=== PATIENT | female | born 1980 | race Caucasian/White ===

== ENCOUNTER 2016-10-10 11:06 | Emergency (ER) | payer OTHER ==
[~2016-10-10] VITALS: Ht 162.6 cm; Wt 81.9 kg
[~2016-10-10 11:06] MED LIST: AZIT500T PO; BUTA-234; BUTA-234 PO; CIPR-17 PO; ERYTHROMYCIN; GABA300C PO; HYDR-3583 PO; HYDR1CAP2 PO; LANS15CA PO; PRCD5U PO; PRD20T PO; PRM25T PO; SULF1TAB38 PO; TRM50T PO; VARE1TAB17; VNL75T PO
[2016-10-10] MEDS ORDERED: NS IV 1000 ML 1,000 ML IV SCH (11:45)
[2016-10-10] MEDS ORDERED: LORazepam INJ 2 MG/ML (ATIVAN) VIAL IVP ONE (11:45)
[2016-10-10 11:46] LABS: BASOPHILS % (AUTO) 0 % (0-10); EOSINOPHILS # (AUTO) 0.2 10^3/uL (0.0-0.3); EOSINOPHILS % (AUTO) 2 % (0-10); LYMPHOCYTES # (AUTO) 3.9 X 10^3 (1.0-4.0); LYMPHOCYTES % (AUTO) 32 % (12-44); MEAN CORPUSCULAR HEMOGLOBIN 31 PG (25-34); MEAN CORPUSCULAR HGB CONC 34 G/DL (32-36); MEAN CORPUSCULAR VOLUME 89 FL (80-99); MEAN PLATELET VOLUME 9.5 FL (7.4-10.4); MONOCYTES # (AUTO) 0.8 X 10^3 (0.0-1.0); MONOCYTES % (AUTO) 6 % (0-12); NEUTROPHILS # (AUTO) 7.3 X 10^3 (1.8-7.8); NEUTROPHILS % (AUTO) 60 % (42-75); PLATELET COUNT 197 10^3/uL (130-400); RED BLOOD COUNT 4.85 10^6/uL (4.35-5.85); RED CELL DISTRIBUTION WIDTH 12.7 % (10.0-14.5); WHITE BLOOD COUNT 12.2 10^3/uL (4.3-11.0)
--- NOTE | 2016-10-10 11:55 | ED Chest Pain ---
General Chief Complaint: Cardiac/General Problems Stated Complaint: CHEST PAIN/SOA Nursing Triage Note: patient reports palpitations x 1 week Nursing Sepsis Screen: No Definite Risk Source: patient Exam Limitations: no limitations History of Present Illness Time seen by provider: 11:53 Initial Comments To ER with shortness of breath, intermittent chest pain, heart palpitations/ skipping a beat for the past week. She's been told past that she has mitral valve prolapse. She also feels very anxious. Timing/Duration: 1 week Severity/Quality: moderate Location: central Radiation: no radiation Activities at Onset: none ASA po MANAGER DATABASE: No NTG SL MANAGER DATABASE: No Allergies and Home Medications Allergies Coded Allergies: hydromorphone (Unverified Allergy, Unknown, 10/10/16) Home Medications Butalb/Acetaminophen/Caffeine 1 Each Tablet, 1 EACH PO Q6HR PRN, (Reported) Gabapentin 300 Mg Capsule, 1 EACH PO TID, (Reported) Lansoprazole 15 Mg Capsule.dr, 15 MG PO PRN, (Reported) Metoprolol Succinate 25 Mg Tab.er.24h, 25 MG PO DAILY, #10 Prescribed by: ALVINA PICKENS on 10/10/16 1324 Promethazine Hcl 25 Mg Tab, 1 TAB PO QID PRN for NAUSEA/VOMITING, #20 Prescribed by: JENNIFER MACKENZIE on 06/16/13 1630 Venlafaxine Hcl 75 Mg Tab, 75 MG PO HS, (Reported) Review of Systems Constitutional: see HPI EENTM: No Symptoms Reported Respiratory: See HPI, Shortness of Air Cardiovascular: See HPI, Chest Pain Genitourinary: No Symptoms Reported Musculoskeletal: no symptoms reported Skin: no symptoms reported Psychiatric/Neurological: See HPI, Anxiety Endocrine: No Symptoms Reported Hematologic/Lymphatic: No Symptoms Reported Past Akjbwfh-Ccsejs-Wdhohj Hx Patient Social History Alcohol Use: Denies Use Recreational Drug Use: No Recent Foreign Travel: No Contact w/Someone Who Travel: No Recent Infectious Disease Expo: No Recent Hopitalizations: No Immunizations Up To Date Tetanus Booster (TDap): Less than 5yrs Date of Influenza Vaccine: Apr 17, 2013 Surgeries HX Surgeries: Yes Surgeries: Abdominal, Appendectomy, Section, Hysterectomy Respiratory Hx Respiratory Disorders: Yes (tobaccoism) Respiratory Disorders: Pneumonia Cardiovascular Hx Cardiac Disorders: Yes (MITRAL VALVE PROLAPSE) Cardiac Disorders: Heart Murmur Neurological Hx Neurological Disorders: Yes Neurological Disorders: Headaches /Migraines Reproductive System Hx Reproductive Disorders: No Sexually Transmitted Disease: No Female Reproductive Disorders: Endometriosis 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 Genitourinary Hx Genitourinary Disorders: No Gastrointestinal Hx Gastrointestinal Disorders: Yes Gastrointestinal Disorders: Gastroesophageal Reflux Musculoskeletal Hx Musculoskeletal Disorders: Yes (CHRONIC "MUSCLE PAIN" X 10 YEARS, MYOFACIAL PAIN) Musculoskeletal Disorders: Fibromyalgia Endocrine Hx Endocrine Disorders: No HEENT HX ENT Disorders: No Cancer Hx Cancer: No Psychosocial Hx Psychiatric Problems: Yes Behavioral Health Disorders: Depression Integumentary HX Skin/Integumentary Disorder: No Blood Transfusions Hx Blood Disorders: No Adverse Reaction to a Blood Tr: No Family Medical History Significant Family History: Heart Disease, Diabetes, Hypertension Physical Exam Vital Signs Vital Sign - Last 12Hours 10/10/16 11:21 Temp 98.2 Pulse 91 Resp 30 B/P (MAP) 140/57 Pulse Ox 100 Capillary Refill : Less Than 3 Seconds General Appearance: No Apparent Distress, WD/WN, Anxious HEENT: PERRL/EOMI, TMs Normal Neck: Full Range of Motion, Normal Inspection Respiratory: Lungs Clear, Normal Breath Sounds, No Accessory Muscle Use, No Respiratory Distress Cardiovascular: Regular Rate, Rhythm, Normal Peripheral Pulses Gastrointestinal: Non Tender, Soft Extremity: Normal Capillary Refill, Normal Inspection Neurologic/Psychiatric: Alert, Oriented x3 Skin: Normal Color, Warm/Dry Progress/Results/Core Measures Results/Orders Lab Results Laboratory Tests Test 10/10/16 11:35 10/10/16 11:47 Range/Units White Blood Count 12.2 H 4.3-11.0 10^3/uL Red Blood Count 4.85 4.35-5.85 10^6/uL Hemoglobin 14.8 11.5-16.0 G/DL Hematocrit 43 35-52 % Mean Corpuscular Volume 89 80-99 FL Mean Corpuscular Hemoglobin 31 25-34 PG Mean Corpuscular Hemoglobin Concent 34 32-36 G/DL Red Cell Distribution Width 12.7 10.0-14.5 % Platelet Count 197 130-400 10^3/uL Mean Platelet Volume 9.5 7.4-10.4 FL Neutrophils (%) (Auto) 60 42-75 % Lymphocytes (%) (Auto) 32 12-44 % Monocytes (%) (Auto) 6 0-12 % Eosinophils (%) (Auto) 2 0-10 % Basophils (%) (Auto) 0 0-10 % Neutrophils # (Auto) 7.3 1.8-7.8 X 10^3 Lymphocytes # (Auto) 3.9 1.0-4.0 X 10^3 Monocytes # (Auto) 0.8 0.0-1.0 X 10^3 Eosinophils # (Auto) 0.2 0.0-0.3 10^3/uL Basophils # (Auto) 0.0 0.0-0.1 10^3/uL D-Dimer 0.57 H 0.00-0.49 UG/ML Sodium Level 139 135-145 MMOL/L Potassium Level 3.8 3.6-5.0 MMOL/L Chloride Level 106 98-107 MMOL/L Carbon Dioxide Level 25 21-32 MMOL/L Anion Gap 8 5-14 MMOL/L Blood Urea Nitrogen 16 7-18 MG/DL Creatinine 1.10 0.60-1.30 MG/DL Estimat Glomerular Filtration Rate 57 BUN/Creatinine Ratio 15 Glucose Level 90 70-105 MG/DL Calcium Level 9.2 8.5-10.1 MG/DL Total Bilirubin 0.3 0.1-1.0 MG/DL Aspartate Amino Transf (AST/SGOT) 38 H 5-34 U/L Alanine Aminotransferase (ALT/SGPT) 69 H 0-55 U/L Alkaline Phosphatase 77 40-136 U/L Troponin I < 0.30 <0.30 NG/ML Total Protein 6.4 6.4-8.2 G/DL Albumin 3.9 3.2-4.5 G/DL Urine Color YELLOW Urine Clarity CLEAR Urine pH 6 5-9 Urine Specific [place] 1.020 1.016-1.022 Urine Protein NEGATIVE NEGATIVE Urine Glucose (UA) NEGATIVE NEGATIVE Urine Ketones NEGATIVE NEGATIVE Urine Nitrite NEGATIVE NEGATIVE Urine Bilirubin NEGATIVE NEGATIVE Urine Urobilinogen NORMAL NORMAL MG/DL Urine Leukocyte Esterase NEGATIVE NEGATIVE Urine RBC (Auto) NEGATIVE NEGATIVE Urine RBC NONE /HPF Urine WBC NONE /HPF Urine Squamous Epithelial Cells 5-10 /HPF Urine Crystals NONE /LPF Urine Bacteria NEGATIVE /HPF Urine Casts NONE /LPF Urine Mucus NEGATIVE /LPF Urine Culture Indicated NO My Orders Orders - ALVINA PICKENS AP OPERATOR Cbc With Automated Diff (10/10/16 11:31) Comprehensive Metabolic Panel (10/10/16 11:31) Ua Culture If Indicated (10/10/16 11:31) Fibrin Degradation Products (10/10/16 11:31) Saline Lock/Iv-Start (10/10/16 11:31) Chest 1 View, Ap/Pa Only (10/10/16 11:31) Ekg Tracing (10/10/16 11:31) Lorazepam Injection (Ativan Injection) (10/10/16 11:45) Ns Iv 1000 Ml (Sodium Chloride 0.9%) (10/10/16 11:45) Ct Angio Chest W (10/10/16 12:00) Iohexol Injection (Omnipaque 350 Mg/Ml 1 (10/10/16 12:15) Sodium Chloride Flush (Catheter Flush Sy (10/10/16 12:15) Ns (Ivpb) (Sodium Chloride 0.9% Ivpb Bag (10/10/16 12:15) Metoprolol Tartrate (Ir) Tab (Lopressor (10/10/16 12:15) Ketorolac Injection (Toradol Injection) (10/10/16 13:15) Troponin I (10/10/16 13:03) Medications Given in ED Current Medications Medications Dose Ordered Sig/Yadira Route Start Time Stop Time Status Last Admin Dose Admin Iohexol 150 ml ONCE ONCE IV 10/10/16 12:15 10/10/16 12:16 DC 10/10/16 12:19 125 ML Ketorolac Tromethamine 30 mg ONCE ONCE IVP 10/10/16 13:15 10/10/16 13:16 DC 10/10/16 13:05 30 MG Lorazepam 1 mg ONCE ONCE IVP 10/10/16 11:45 10/10/16 11:46 DC 10/10/16 11:46 1 MG Sodium Chloride 100 ml ONCE ONCE IV 10/10/16 12:15 10/10/16 12:16 DC 10/10/16 12:19 80 ML Vital Signs/I&O Vital Sign - Last 12Hours 10/10/16 11:21 Temp 98.2 Pulse 91 Resp 30 B/P (MAP) 140/57 Pulse Ox 100 Blood Pressure Mean: 84 Diagnostic Imaging Diagonstic Imaging: CT Plain Films/CT/US/NM/MRI: chest Comments NAME: SUZETTE MANLEY MED REC#: [id number] PT STATUS: REG ER : 1980 PHYSICIAN: ALVINA PICKENS APRN ADMIT DATE: 10/10/16/ER Draft Date of Exam:10/10/16 CT ANGIO CHEST W CLINICAL INDICATION: Patient with shortness of breath and chest palpitations and chest discomfort. EXAM: CT angiogram of the chest performed with 125 cc Omnipaque 350 IV contrast. Coronal and oblique MIP images of the vasculature were created to better evaluate anatomy. COMPARISON: Chest x-ray dated 10/10/2016. FINDINGS: There is no evidence of pulmonary embolism. There is no thoracic aortic dissection or aneurysm. There is a 4 mm noncalcified nodule in the posterior left lower lobe seen on series 4, image 105. There is another 3 mm noncalcified nodule in the posterior left lower lobe which is just caudal to the previously described nodule. Otherwise, lungs clear. There is no pleural effusion pneumothorax. There is no mediastinal or axillary lymphadenopathy. Mediastinal structures and heart shows no significant abnormality. The visualized portions of the upper abdominal structures are unremarkable. There are minimal sized spurs involving the thoracic spine. IMPRESSION: 1: There is no evidence of pulmonary embolism or thoracic aortic dissection. 2: There are 2 noncalcified nodules in the left lower lobe near each other with one measuring 4 mm and the other measuring 3 mm. In patients with minimal or absent history of smoking or other known risk factors, non-calcified nodules less than or equal to 4mm in diameter need no follow up. If risk factors exist, a follow up CT is recommended in 12 months. If unchanged at that time, no further follow up is needed. 3: The remainder of the chest exam is unremarkable for patient's age. Dictated on workstation # [id number] Dict: 10/10/16 1239 Trans: 10/10/16 1251 [id number] Interpreted by: PASTORA VARGAS MD Electronically signed by: Departure Communication Progress Notes Patient has had a few PVCs during her ER stay. Impression Impression: Primary Impression: Atypical chest pain Additional Impression: Anxiety Disposition: 01 HOME, SELF-CARE Condition: Stable (Cor out of warm) Departure-Patient Inst. Decision time for Depature: 13:21 Referrals: JAZ BRITO MD FACP FACC CCDS Joshua VILLASENOR MD, BASHAR J MD ORENDER, JACQUELINE S DO (PCP/Family) Primary Care Physician Patient Instructions: Chest Pain (DC) Add. Discharge Instructions: . Call one of the cardiologists of your choosing today to make an appointment to be seen later this week 2. Return to ER for any concerns 3. All discharge instructions reviewed with patient and/or family. Voiced understanding. Scripts Metoprolol Succinate (Toprol Xl) 25 Mg Tab.er.24h 25 MG PO DAILY, #10 TAB . Prov: ALVINA PICKENS APRN 10/10/16 ALVINA PICKENS APRN Oct 10, 2016 11:55
[2016-10-10 11:57] LABS: BILIRUBIN,URINE NEGATIVE (NEGATIVE); KETONES,URINE NEGATIVE (NEGATIVE); LEUKOCYTE ESTERASE ,URINE NEGATIVE (NEGATIVE); NITRITE,URINE NEGATIVE (NEGATIVE); PH,URINE 6 (5-9); PROTEIN,URINE NEGATIVE (NEGATIVE); UROBILINOGEN,URINE NORMAL (NORMAL)
[2016-10-10 12:11] LABS: ALBUMIN 3.9 G/DL (3.2-4.5); BILIRUBIN,TOTAL 0.3 MG/DL (0.1-1.0); CALCIUM 9.2 MG/DL (8.5-10.1); CREATININE SERUM 1.1 MG/DL (0.60-1.30); POTASSIUM 3.8 MMOL/L (3.6-5.0); TOTAL PROTEIN 6.4 G/DL (6.4-8.2)
--- NOTE | 2016-10-10 12:11 | Diagnostic Imaging Report ---
EXAMINATION: Portable upright radiograph of the chest. INDICATION: Chest pain and shortness of breath. FINDINGS: The lungs are clear. The heart size is normal. There is no effusion or pneumothorax. The mediastinum and brendan appear unremarkable. IMPRESSION: Unremarkable exam. Dictated by: Dictated on workstation # [id number]
[2016-10-10] MEDS ORDERED: NS 100 ML (IVPB) BAG IV ONE (12:15)
[2016-10-10] MEDS ORDERED: CATHETER FLUSH 10 ML SYR IV PRN (12:15)
[2016-10-10] MEDS ORDERED: IOHEXOL 350 MG/ML 150 ML (OMNIPAQUE 350) VIAL IV ONE (12:15)
[2016-10-10] MEDS ORDERED: meTOprolol TARTRATE 25 MG (LOPRESSOR) TABLET PO ONE (12:15)
--- NOTE | 2016-10-10 12:51 | Diagnostic Imaging Report ---
CLINICAL INDICATION: Patient with shortness of breath and chest palpitations and chest discomfort. EXAM: CT angiogram of the chest performed with 125 cc Omnipaque 350 IV contrast. Coronal and oblique MIP images of the vasculature were created to better evaluate anatomy. COMPARISON: Chest x-ray dated 10/10/2016. FINDINGS: There is no evidence of pulmonary embolism. There is no thoracic aortic dissection or aneurysm. There is a 4 mm noncalcified nodule in the posterior left lower lobe seen on series 4, image 105. There is another 3 mm noncalcified nodule in the posterior left lower lobe which is just caudal to the previously described nodule. Otherwise, lungs clear. There is no pleural effusion pneumothorax. There is no mediastinal or axillary lymphadenopathy. Mediastinal structures and heart shows no significant abnormality. The visualized portions of the upper abdominal structures are unremarkable. There are minimal sized spurs involving the thoracic spine. IMPRESSION: 1: There is no evidence of pulmonary embolism or thoracic aortic dissection. 2: There are 2 noncalcified nodules in the left lower lobe near each other with one measuring 4 mm and the other measuring 3 mm. In patients with minimal or absent history of smoking or other known risk factors, non-calcified nodules less than or equal to 4mm in diameter need no follow up. If risk factors exist, a follow up CT is recommended in 12 months. If unchanged at that time, no further follow up is needed. 3: The remainder of the chest exam is unremarkable for patient's age. Dictated by: Dictated on workstation # [id number]
[2016-10-10] MEDS ORDERED: KETOROLAC 30 MG/ML VIAL IVP ONE (13:15)
[2016-10-10] MEDS ORDERED: METO-351 PO ×2 (13:24→13:36)
[2016-10-10 13:40] VITALS: BP 108/80
== END 2016-10-10 13:38 | disposition home or self-care (01) ==
LOC: EDUNIT# 11:06 → ER 11:08
DX: R07.89 Other chest pain (principal); R91.8 Other nonspecific abnormal finding of lung field; F41.9 Anxiety disorder, unspecified; Z79.899 Other long term (current) drug therapy
CPT/HCPCS: 36415; 71010; 71275; 80053; 81000; 84484; 85025; 85379; 93005; 96361; 96374; 96375

== ENCOUNTER → 2016-10-31 | Outpatient (CLI) | payer OTHER ==
[~2016-10-31] MED LIST changes: +METO-351 PO
== END ==
LOC: CARD 12:52
PROVIDERS: ATTEND Internal Medicine Cardiovascular Disease
DX: R07.9 Chest pain, unspecified (principal); I34.0 Nonrheumatic mitral (valve) insufficiency; R06.02 Shortness of breath; Z82.49 Family history of ischemic heart disease and other diseases of the circulatory system

== ENCOUNTER → 2016-11-05 | Outpatient (CLI) | payer OTHER | LOC: CARD 09:24 | PROVIDERS: ATTEND Physician Assistant | DX: R07.9 Chest pain, unspecified (principal); I34.0 Nonrheumatic mitral (valve) insufficiency; R06.02 Shortness of breath; Z82.49 Family history of ischemic heart disease and other diseases of the circulatory system | CPT/HCPCS: 93017 ==

== ENCOUNTER → 2016-11-21 | Outpatient (CLI) | payer OTHER ==
[2016-11-21 07:00] LABS: BASOPHILS % (AUTO) 0 % (0-10); EOSINOPHILS # (AUTO) 0.2 10^3/uL (0.0-0.3); EOSINOPHILS % (AUTO) 2 % (0-10); LYMPHOCYTES # (AUTO) 3.5 X 10^3 (1.0-4.0); LYMPHOCYTES % (AUTO) 34 % (12-44); MEAN CORPUSCULAR HEMOGLOBIN 30 PG (25-34); MEAN CORPUSCULAR HGB CONC 34 G/DL (32-36); MEAN CORPUSCULAR VOLUME 90 FL (80-99); MEAN PLATELET VOLUME 9.7 FL (7.4-10.4); MONOCYTES # (AUTO) 0.6 X 10^3 (0.0-1.0); MONOCYTES % (AUTO) 6 % (0-12); NEUTROPHILS # (AUTO) 6.2 X 10^3 (1.8-7.8); NEUTROPHILS % (AUTO) 59 % (42-75); PLATELET COUNT 201 10^3/uL (130-400); RED BLOOD COUNT 4.88 10^6/uL (4.35-5.85); RED CELL DISTRIBUTION WIDTH 12.9 % (10.0-14.5); WHITE BLOOD COUNT 10.5 10^3/uL (4.3-11.0)
[2016-11-21 07:28] LABS: ALANINE AMINOTRANSFERASE 42 U/L (0-55); ALBUMIN 4.4 G/DL (3.2-4.5); ANION GAP 9 MMOL/L (5-14); ASPARTATE AMINO TRANSFERASE 25 U/L (5-34); BILIRUBIN,TOTAL 0.4 MG/DL (0.1-1.0); BLOOD UREA NITROGEN 19 MG/DL (7-18); BUN/CREATININE RATIO 22; CALCIUM 9.5 MG/DL (8.5-10.1); CARBON DIOXIDE 24 MMOL/L (21-32); CHLORIDE 105 MMOL/L (98-107); CHOLESTEROL 232 MG/DL (< 200); CREATININE SERUM 0.88 MG/DL (0.60-1.30); DIRECT LDL 159 MG/DL (1-129); GFR ESTIMATED > 60; GLUCOSE 83 MG/DL (70-105); POTASSIUM 4.4 MMOL/L (3.6-5.0); SODIUM 138 MMOL/L (135-145); TOTAL PROTEIN 7.2 G/DL (6.4-8.2); TRIGLYCERIDES 95 MG/DL (<150); VLDL CHOLESTEROL 19 MG/DL (5-40)
[2016-11-21 07:48] LABS: THYROID STIMULATING HORMONE 1.28 UIU/ML (0.35-4.94)
== END ==
LOC: LAB 06:40
PROVIDERS: ATTEND Physician Assistant
DX: R07.89 Other chest pain (principal); R00.2 Palpitations; G47.33 Obstructive sleep apnea (adult) (pediatric); Z82.49 Family history of ischemic heart disease and other diseases of the circulatory system
CPT/HCPCS: 36415; 80053; 80061; 84443; 85025

== ENCOUNTER → 2017-05-23 | Outpatient (CLI) | payer OTHER ==
[~2017-05-23] MED LIST changes: +ATOR20TA66 PO; +CATHETER FLUSH 10 ML SYR IV PRN; +ESTR-44 TD; +HYOS0.1283 SL; +IOHEXOL 350 MG/ML 100 ML (OMNIPAQUE 350) VIAL IV ONE; +NS 100 ML (IVPB) BAG IV ONE; +OMEP40CA36 PO; +ONDA8TAB13 PO
--- NOTE | 2017-05-23 14:31 | Diagnostic Imaging Report ---
PROCEDURE: CT abdomen and pelvis with and without contrast. TECHNIQUE: Precontrast acquisitions were acquired through the abdomen and pelvis. Multiple contiguous axial images were obtained through the abdomen and pelvis after the administration of intravenous contrast. INDICATION: Pain diarrhea. Study compared with exam 04/21/2017 Reflecting change in appearance from the prior exam we now note abnormal edematous thickening of the grier of the colon from cecum through the level of the rectum. This is in a nonvascular distribution and is compatible with nonspecific colitis. There is no substantial pericolonic edema and no resultant bowel obstruction. No viscus perforation. No evidence for an abscess. The unobstructed small bowel was nonfocal and nonacute. The spleen, liver, gallbladder, adrenals and pancreas negative. The kidneys unobstructed and normal. IMPRESSION: Development of mild features of pancolitis without abscess, obstruction or perforation. Normal appearance of the unobstructed small bowel. Remaining abdominal pelvic solid and hollow viscera unremarkable. Dictated by: Dictated on workstation # [id number]
== END ==
LOC: RAD 12:33
PROVIDERS: ATTEND Nurse Practitioner Family
DX: K51.00 Ulcerative (chronic) pancolitis without complications (principal)
CPT/HCPCS: 74178

== ENCOUNTER 2017-07-22 05:40 | Outpatient (CLI) | payer OTHER ==
[~2017-07-22] VITALS: Ht 162.6 cm; Wt 95.9 kg
[~2017-07-22 05:40] MED LIST changes: -CATHETER FLUSH 10 ML SYR IV PRN; -IOHEXOL 350 MG/ML 100 ML (OMNIPAQUE 350) VIAL IV ONE; -NS 100 ML (IVPB) BAG IV ONE
[2017-07-22] MEDS ORDERED: ERGO50006 PO (11:18)
[2017-07-22] MEDS ORDERED: ATOR10TA66 PO (11:18)
== END 2017-07-22 11:23 ==
LOC: PREOP 05:40
PROVIDERS: ATTEND Surgery
DX: Z01.818 Encounter for other preprocedural examination (principal); R19.7 Diarrhea, unspecified

== ENCOUNTER 2017-07-29 06:59 | Day surgery (SDC) | payer OTHER ==
[~2017-07-29] VITALS: Ht 162.6 cm; Wt 95.9 kg
[~2017-07-29 06:59] MED LIST changes: +ATOR10TA66 PO; +ERGO50006 PO
[2017-07-29] MEDS ORDERED: NS IV 500 ML 500 ML ONE (07:19)
[2017-07-29] MEDS ORDERED: NS IV 500 ML 500 ML IV PRN (07:26)
[2017-07-29 07:27] VITALS: BP 109/63
[2017-07-29] MEDS ORDERED: fentaNYL INJECTION 100 MCG/2 ML AMP ONE (08:11)
[2017-07-29] MEDS ORDERED: MIDAZOLAM 2 MG/2 ML (VERSED) VIAL ONE ×3 (08:11)
[2017-07-29] MEDS: fentaNYL INJECTION 100 MCG/2 ML AMP IVP PRN ×2 (08:18→08:30)
[2017-07-29] MEDS: MIDAZOLAM 2 MG/2 ML (VERSED) VIAL IVP PRN ×3 (08:20→08:35)
--- NOTE | 2017-07-29 08:20 | Conscious Sedation/ASA ---
Conscious Sedation Pre-Proced Time Reviewed: 08:20 ASA Class: 2 Airway Mallampati Classification: (elem appropriate class) I. II. III, IV Lungs Heart ASA score ASA 1: a normal healthy patient ASA 2: a patient with a mild systemic disease (mid diabetes, controlled hypertension, obesity ASA 3: a patient with a severe systemic disease that limits activity (angina , COPD, prior Myocardial infarction) ASA 4: a patient with an incapacitating disease that is a constant threat to life (CHF, renal failure) ASA 5: a moribund patient not expected to survive 24 hrs. (ruptured aneurysm) ASA 6: a declared brain patient whose organs are being harvested. For emergent operations, add the letter E after the classification Grade 1 Sedation Plan: Discussed options with patient/fam Note The patient is an appropriate candidate to undergo the planned procedure, sedation, and anesthesia. The patient immediately re-assessed prior to indication. CECE HOUSE MD Jul 29, 2017 8:20 am
--- NOTE | 2017-07-29 08:20 | History & Physicial ---
History of Present Illness History of Present Illness Reason for visit/HPI to undergo colonoscopy to evaluate 4 months history of bloody diarrhea and abdominal pain. Steroids seemed to have helped intermittently. Date of Admission 07/29/17 Date Seen by Provider: Jul 29, 2017 Time Seen by Provider: 08:19 I consulted on this patient on 07/29/17 08:18 Attending Physician Cece Schaeffer MD Admitting Physician Gracie Oakley DO Consult Allergies and Home Medications Allergies Coded Allergies: hydromorphone (Unverified Allergy, Mild, ITCHING, 07/22/17) Home Medications Atorvastatin Calcium 10 Mg Tablet, 10 MG PO DAILY, (Reported) Ergocalciferol (Vitamin D2) 50,000 Unit Capsule, 50,000 UNIT PO WEEKLY, ( Reported) Estradiol 1 Each Patch.tdsw, 1 EACH TD Twice Weekly, (Reported) Omeprazole 40 Mg Capsule.dr, 40 MG PO DAILY, (Reported) Past Qmrqagu-Boswjo-Ulsjpp Hx Patient Social History Marrital Status: Employed/Student: employed Alcohol Use: Denies Use Recreational Drug Use: No Smoking Status: Current Everyday Smoker Type Used: Cigarettes Recent Foreign Travel: No Contact w/other who traveled: No Recent Hopitalizations: No Immunizations Up To Date Tetanus Booster (TDap): Less than 5yrs Date of Influenza Vaccine: Apr 01, 2017 Seasonal Allergies Seasonal Allergies: No Surgeries Yes Appendectomy, Section, Hysterectomy, Tonsillectomy Respiratory Yes (tobaccoism) Cardiovascular Yes (MITRAL VALVE PROLAPSE) Heart Murmur Neurological Yes Headaches /Migraines Reproductive System Hx Reproductive Disorders: No Sexually Transmitted Disease: No HIV/AIDS: No Female Reproductive Disorders: Endometriosis DIET AID History: Hysterectomy Gastrointestinal Yes Gastroesophageal Reflux, Chronic Diarrhea Musculoskeletal Yes (CHRONIC "MUSCLE PAIN" X 10 YEARS, MYOFACIAL PAIN) Fibromyalgia Endocrine History of Endocrine Disorders: No HEENT Loss of Vision: Bilateral Hearing Impairment: Denies Cancer No Psychosocial History of Psychiatric Problem: Yes Behavioral Health Disorders: Depression Integumentary History of Skin or Integumenta: No Blood Transfusions History of Blood Disorders: No Adverse Reaction to a Blood Tr: No (N/A) Family Medical History Significant Family History: Heart Disease, Diabetes, Hypertension Constitutional: no symptoms reported EENTM: no symptoms reported Respiratory: no symptoms reported Cardiovascular: no symptoms reported Gastrointestinal: see HPI Genitourinary: no symptoms reported Musculoskeletal: no symptoms reported Skin: no symptoms reported Psychiatric/Neurological: No Symptoms Reported Physical Exam Vital Signs Vital Signs - First Documented 07/29/17 07:27 Temp 98.3 Pulse 85 Resp 20 B/P (MAP) 109/63 (78) Pulse Ox 99 O2 Delivery Room Air Capillary Refill : General Appearance: No Apparent Distress HEENT: Normal ENT Inspection Neck: Normal Inspection Respiratory: Lungs Clear Cardiovascular: Regular Rate, Rhythm Gastrointestinal: Non Tender, Soft Rectal: Deferred Neurologic/Psychiatric: Alert, Oriented x3 Skin: Warm/Dry Assessment/Plan Assessment and Plan lady with 4 months history of bloody diarrhea and abdominal pain. Colitis to be considered. Reviewed colonoscopy with biopsy. Problems: CECE SCHAEFFER MD Jul 29, 2017 8:20 am
--- NOTE | 2017-07-29 08:45 | Endo Procedure Record ---
Endo Procedure Report Date of Procedure Last Colonoscopy: No Jul 29, 2017 Surgeon (s) CECE HOUSE MD Post Procedure/Op Diagnosis No obvious evidence of colitis 2 mm polyp 2 at proximal rectum 1 mm polyp admitted the rectum Procedure Performed Colonoscopy to cecum Multiple biopsies to rule out occult colitis Hot biopsy polypectomy 3 Description of Procedure Anesthesia Type: Conscious Sedation Specimen(s) collected/removed mucosa of right, transverse and sigmoid areas Polyps from rectum Description of the Procedure indication for the procedure: This lady came in for colonoscopy to evaluate bloody diarrhea of 4 months duration. Informed consent was obtained after reviewing the procedure in detail. Description of procedure: She was placed in left lateral decubitus position and her vital signs were monitored. Conscious sedation was achieved using Versed and fentanyl. Digital rectal examination was unremarkable. The colonoscope was then introduced in the rectum and advanced all the way up to the cecum. The quality of bowel preparation was excellent. The scope was then withdrawn slowly and the mucosa examined in a systematic fashion. Findings: 1. 1 mm polyp at the mid rectum, there was excised with hot biopsy forceps 2. 2 polyps, 2 mm each, adjacent to each other, at the proximal rectum. This were excised with hot biopsy forceps as well There was no macroscopic evidence of colitis. However, due to the history of bloody diarrhea, random biopsies were obtained. he tolerated the procedure well and was taken back to the nursing area in a stable condition. Impression: Bloody diarrhea. Rectal polyps excised. No macroscopic evidence of colitis. Biopsies pending. Copies To: IFRAH TORRES XAVIER M MD Jul 29, 2017 8:45 am
--- NOTE | 2017-07-29 08:47 | Discharge Inst-Simple/Standard ---
Discharge Inst-Standard Discharge Medications New, Converted or Re-Newed RX: Other Patient Instructions/Follow Up Plan of Care/Instructions/FU: Repeat colonoscopy in 5 years. We shall call once pathology reports come through Activity as Tolerated: Yes Discharge Diet: No Restrictions CECE HOUSE MD Jul 29, 2017 8:46 am
[2017-07-29 09:05] VITALS: BP 94/50
[2017-07-29 09:45] VITALS: BP 106/53
[2017-07-29 10:25] VITALS: BP 106/53
--- OUTSIDE RECORDS SUMMARY | 2017-08-01 11:14 | XMS REPORT | Continuity of Care Document ---
Author Author [facility] Address Unknown Phone Unavailable Allergies Active Description Code Type Severity Reaction Onset Reported/Identified Relationship to Patient Clinical Status Yes Dilaudid Drug Allergy 07/13/2010 Yes Dilaudid Drug Allergy N/A N/A 07/13/2010 Yes hydromorphone [id number] Drug Allergy Unknown N/A 10/10/2016 Yes hydromorphone [id number] Drug Allergy Mild ITCHING 07/22/2017 Medications There is no data. Problems Date Dx Coded Attending Type Code Diagnosis Diagnosed By 02/23/2008 784.0 HEADACHE 02/23/2008 JORGE LUIS ORTIZ DO 784.0 HEADACHE 02/23/2008 784.0 HEADACHE 02/23/2008 784.0 HEADACHE 02/23/2008 784.0 HEADACHE 02/23/2008 RENAY JACOB MD 784.0 HEADACHE 02/23/2008 RENAY JACOB MD 784.0 HEADACHE 02/23/2008 SINDHU COLLINS DDS 784.0 HEADACHE 04/01/2008 466.0 BRONCHITIS, ACUTE 04/01/2008 JORGE LUIS ROTIZ DO 466.0 BRONCHITIS, ACUTE 04/01/2008 466.0 BRONCHITIS, ACUTE 04/01/2008 466.0 BRONCHITIS, ACUTE 04/01/2008 466.0 BRONCHITIS, ACUTE 04/01/2008 RENAY JACOB MD 466.0 BRONCHITIS, ACUTE 04/01/2008 RENAY JACOB MD 466.0 BRONCHITIS, ACUTE 04/01/2008 SINDHU COLLINS DDS 466.0 BRONCHITIS, ACUTE 06/28/2008 338.4 PAIN CHRONIC SYNDROME 06/28/2008 JORGE LUIS ORTIZ DO 338.4 PAIN CHRONIC SYNDROME 06/28/2008 338.4 PAIN CHRONIC SYNDROME 06/28/2008 338.4 PAIN CHRONIC SYNDROME 06/28/2008 338.4 PAIN CHRONIC SYNDROME 06/28/2008 RENAY JACOB MD 338.4 PAIN CHRONIC SYNDROME 06/28/2008 RENAY JACOB MD 338.4 PAIN CHRONIC SYNDROME 06/28/2008 SINDHU COLLINS DDS 338.4 PAIN CHRONIC SYNDROME 06/29/2008 715.90 OSTEOARTHROSIS UNSPECIFIED WHETHER GENERALIZED OR LOCALIZED INVOLVING UNSPECIFIED SITE 06/29/2008 JORGE LUIS ORTIZ DO 715.90 OSTEOARTHROSIS UNSPECIFIED WHETHER GENERALIZED OR LOCALIZED INVOLVING UNSPECIFIED SITE 06/29/2008 715.90 OSTEOARTHROSIS UNSPECIFIED WHETHER GENERALIZED OR LOCALIZED INVOLVING UNSPECIFIED SITE 06/29/2008 715.90 OSTEOARTHROSIS UNSPECIFIED WHETHER GENERALIZED OR LOCALIZED INVOLVING UNSPECIFIED SITE 06/29/2008 715.90 OSTEOARTHROSIS UNSPECIFIED WHETHER GENERALIZED OR LOCALIZED INVOLVING UNSPECIFIED SITE 06/29/2008 RENAY JACOB MD 715.90 OSTEOARTHROSIS UNSPECIFIED WHETHER GENERALIZED OR LOCALIZED INVOLVING UNSPECIFIED SITE 06/29/2008 RENAY JACOB MD 715.90 OSTEOARTHROSIS UNSPECIFIED WHETHER GENERALIZED OR LOCALIZED INVOLVING UNSPECIFIED SITE 06/29/2008 SINDHU COLLINS DDS 715.90 OSTEOARTHROSIS UNSPECIFIED WHETHER GENERALIZED OR LOCALIZED INVOLVING UNSPECIFIED SITE 07/27/2008 461.0 ACUTE MAXILLARY SINUSITIS 07/27/2008 JORGE LUIS ORTIZ DO 461.0 ACUTE MAXILLARY SINUSITIS 07/27/2008 461.0 ACUTE MAXILLARY SINUSITIS 07/27/2008 461.0 ACUTE MAXILLARY SINUSITIS 07/27/2008 461.0 ACUTE MAXILLARY SINUSITIS 07/27/2008 RENAY JACOB MD 461.0 ACUTE MAXILLARY SINUSITIS 07/27/2008 RENAY JACOB MD 461.0 ACUTE MAXILLARY SINUSITIS 07/27/2008 SINDHU COLLINS DDS 461.0 ACUTE MAXILLARY SINUSITIS 07/25/2009 305.1 TOBACCO ABUSE 07/25/2009 JORGE LUIS ORTIZ DO 305.1 TOBACCO ABUSE 07/25/2009 305.1 TOBACCO ABUSE 07/25/2009 305.1 TOBACCO ABUSE 07/25/2009 305.1 TOBACCO ABUSE 07/25/2009 RENAY JACOB MD 305.1 TOBACCO ABUSE 07/25/2009 RENAY JACOB MD 305.1 TOBACCO ABUSE 07/25/2009 SINDHU COLLINS DDS 305.1 TOBACCO ABUSE 10/28/2009 558.9 GASTROENTERITIS NONINFECTIOUS 10/28/2009 JORGE LUIS ORTIZ DO 558.9 GASTROENTERITIS NONINFECTIOUS 10/28/2009 558.9 GASTROENTERITIS NONINFECTIOUS 10/28/2009 558.9 GASTROENTERITIS NONINFECTIOUS 10/28/2009 558.9 GASTROENTERITIS NONINFECTIOUS 10/28/2009 RENAY JACOB MD 558.9 GASTROENTERITIS NONINFECTIOUS 10/28/2009 RENAY JACOB MD 558.9 GASTROENTERITIS NONINFECTIOUS 10/28/2009 SINDHU COLLINS DDS 558.9 GASTROENTERITIS NONINFECTIOUS 03/20/2010 787.02 NAUSEA ALONE 03/20/2010 789.00 ABDOMINAL PAIN UNSPECIFIED SITE 03/20/2010 JORGE LUIS ORTIZ DO 787.02 NAUSEA ALONE 03/20/2010 JORGE LUIS ORTIZ DO 789.00 ABDOMINAL PAIN UNSPECIFIED SITE 03/20/2010 787.02 NAUSEA ALONE 03/20/2010 789.00 ABDOMINAL PAIN UNSPECIFIED SITE 03/20/2010 787.02 NAUSEA ALONE 03/20/2010 789.00 ABDOMINAL PAIN UNSPECIFIED SITE 03/20/2010 787.02 NAUSEA ALONE 03/20/2010 789.00 ABDOMINAL PAIN UNSPECIFIED SITE 03/20/2010 RENAY JACOB MD 787.02 NAUSEA ALONE 03/20/2010 RENAY JACOB MD 789.00 ABDOMINAL PAIN UNSPECIFIED SITE 03/20/2010 RENAY JACOB MD 787.02 NAUSEA ALONE 03/20/2010 RENAY JACOB MD 789.00 ABDOMINAL PAIN UNSPECIFIED SITE 03/20/2010 SINDHU COLLINS DDS 787.02 NAUSEA ALONE 03/20/2010 SINDHU COLLINS DDS 789.00 ABDOMINAL PAIN UNSPECIFIED SITE 03/25/2010 Ot 305.1 03/25/2010 Ot 346.90 03/25/2010 Ot 557.0 03/25/2010 Ot 564.00 03/25/2010 Ot 614.6 03/25/2010 Ot 617.9 03/25/2010 Ot 729.5 03/25/2010 Ot 729.81 03/25/2010 Ot V45.77 07/11/2010 Ot 729.1 07/11/2010 Ot 780.60 07/13/2010 041.81 OTHER SPECIFIED BACTERIAL INFECTIONS IN CONDITIONS CLASSIFIED ELSEWHERE AND OF UNSPECIFIED SITE MYCOPLASMA 07/13/2010 276.50 VOLUME DEPLETION UNSPECIFIED 07/13/2010 790.4 ABNORMAL LIVER FUNCTION TEST 07/13/2010 JORGE LUIS ORTIZ DO 041.81 OTHER SPECIFIED BACTERIAL INFECTIONS IN CONDITIONS CLASSIFIED ELSEWHERE AND OF UNSPECIFIED SITE MYCOPLASMA 07/13/2010 JORGE LUIS ORTIZ DO K 276.50 VOLUME DEPLETION UNSPECIFIED 07/13/2010 ORTIZ JORGE LUIS GONZALEZ K 790.4 ABNORMAL LIVER FUNCTION TEST 07/13/2010 041.81 OTHER SPECIFIED BACTERIAL INFECTIONS IN CONDITIONS CLASSIFIED ELSEWHERE AND OF UNSPECIFIED SITE MYCOPLASMA 07/13/2010 276.50 VOLUME DEPLETION UNSPECIFIED 07/13/2010 790.4 ABNORMAL LIVER FUNCTION TEST 07/13/2010 041.81 OTHER SPECIFIED BACTERIAL INFECTIONS IN CONDITIONS CLASSIFIED ELSEWHERE AND OF UNSPECIFIED SITE MYCOPLASMA 07/13/2010 276.50 VOLUME DEPLETION UNSPECIFIED 07/13/2010 790.4 ABNORMAL LIVER FUNCTION TEST 07/13/2010 041.81 OTHER SPECIFIED BACTERIAL INFECTIONS IN CONDITIONS CLASSIFIED ELSEWHERE AND OF UNSPECIFIED SITE MYCOPLASMA 07/13/2010 276.50 VOLUME DEPLETION UNSPECIFIED 07/13/2010 790.4 ABNORMAL LIVER FUNCTION TEST 07/13/2010 RENAY JACOB MD 041.81 OTHER SPECIFIED BACTERIAL INFECTIONS IN CONDITIONS CLASSIFIED ELSEWHERE AND OF UNSPECIFIED SITE MYCOPLASMA 07/13/2010 RENAY JACOB MD 276.50 VOLUME DEPLETION UNSPECIFIED 07/13/2010 RENAY JACOB MD 790.4 ABNORMAL LIVER FUNCTION TEST 07/13/2010 RENAY JACOB MD 041.81 OTHER SPECIFIED BACTERIAL INFECTIONS IN CONDITIONS CLASSIFIED ELSEWHERE AND OF UNSPECIFIED SITE MYCOPLASMA 07/13/2010 RENAY JACOB MD 276.50 VOLUME DEPLETION UNSPECIFIED 07/13/2010 RENAY JACOB MD 790.4 ABNORMAL LIVER FUNCTION TEST 07/13/2010 SINDHU COLLINS DDS 041.81 OTHER SPECIFIED BACTERIAL INFECTIONS IN CONDITIONS CLASSIFIED ELSEWHERE AND OF UNSPECIFIED SITE MYCOPLASMA 07/13/2010 SINDHU OCLLINS DDS 276.50 VOLUME DEPLETION UNSPECIFIED 07/13/2010 SINDHU COLLINS DDS 790.4 ABNORMAL LIVER FUNCTION TEST 07/13/2010 Ot 784.0 09/04/2010 724.2 BACK PAIN, LOWER 09/04/2010 788.1 DYSURIA 09/04/2010 788.63 URINARY URGENCY 09/04/2010 JORGE LUIS ORTIZ DO 724.2 BACK PAIN, LOWER 09/04/2010 JORGE LUIS ORTIZ DO 788.1 DYSURIA 09/04/2010 JORGE LUIS ORTIZ DO 788.63 URINARY URGENCY 09/04/2010 724.2 BACK PAIN, LOWER 09/04/2010 788.1 DYSURIA 09/04/2010 788.63 URINARY URGENCY 09/04/2010 724.2 BACK PAIN, LOWER 09/04/2010 788.1 DYSURIA 09/04/2010 788.63 URINARY URGENCY 09/04/2010 724.2 BACK PAIN, LOWER 09/04/2010 788.1 DYSURIA 09/04/2010 788.63 URINARY URGENCY 09/04/2010 NIDIA PEOPLES, RENAY Lewis 724.2 BACK PAIN, LOWER 09/04/2010 RENAY JACOB MD 788.1 DYSURIA 09/04/2010 RENAY JACOB MD 788.63 URINARY URGENCY 09/04/2010 RENAY JACOB MD 724.2 BACK PAIN, LOWER 09/04/2010 RENAY JACOB MD 788.1 DYSURIA 09/04/2010 RENAY JACOB MD 788.63 URINARY URGENCY 09/04/2010 SINDHU COLLINS DDS 724.2 BACK PAIN, LOWER 09/04/2010 KARINA SAUCEDOSSINDHU 788.1 DYSURIA 09/04/2010 SINDHU COLLINS DDS 788.63 URINARY URGENCY 02/26/2011 034.0 STREPTOCOCCAL SORE THROAT 02/26/2011 JORGE LUIS ORTIZ DO 034.0 STREPTOCOCCAL SORE THROAT 02/26/2011 034.0 STREPTOCOCCAL SORE THROAT 02/26/2011 034.0 STREPTOCOCCAL SORE THROAT 02/26/2011 034.0 STREPTOCOCCAL SORE THROAT 02/26/2011 RENAY JACOB MD 034.0 STREPTOCOCCAL SORE THROAT 02/26/2011 RENAY JACOB MD 034.0 STREPTOCOCCAL SORE THROAT 02/26/2011 SINDHU COLLINS DDS 034.0 STREPTOCOCCAL SORE THROAT 08/10/2011 461.9 SINUSITIS ACUTE 08/10/2011 V65.42 COUNSELING - SMOKING CESSATION 08/10/2011 JORGE LUIS ORTIZ DO 461.9 SINUSITIS ACUTE 08/10/2011 JORGE LUIS ORTIZ DO V65.42 COUNSELING - SMOKING CESSATION 08/10/2011 461.9 SINUSITIS ACUTE 08/10/2011 V65.42 COUNSELING - SMOKING CESSATION 08/10/2011 461.9 SINUSITIS ACUTE 08/10/2011 V65.42 COUNSELING - SMOKING CESSATION 08/10/2011 461.9 SINUSITIS ACUTE 08/10/2011 V65.42 COUNSELING - SMOKING CESSATION 08/10/2011 RENAY JACOB MD 461.9 SINUSITIS ACUTE 08/10/2011 RENAY JACOB MD V65.42 COUNSELING - SMOKING CESSATION 08/10/2011 RENAY JACOB MD 461.9 SINUSITIS ACUTE 08/10/2011 RENAY JACOB MD V65.42 COUNSELING - SMOKING CESSATION 08/10/2011 SINDHU COLLINS DDS 461.9 SINUSITIS ACUTE 08/10/2011 SINDHU COLLINS DDS V65.42 COUNSELING - SMOKING CESSATION 09/03/2011 112.1 CANDIDIASIS VAGINAL 09/03/2011 729.5 foot pain ( soft tissue) 09/03/2011 JORGE LUIS ORTIZ DO 112.1 CANDIDIASIS VAGINAL 09/03/2011 JORGE LUIS ORTIZ DO 729.5 foot pain (soft tissue) 09/03/2011 112.1 CANDIDIASIS VAGINAL 09/03/2011 729.5 foot pain ( soft tissue) 09/03/2011 112.1 CANDIDIASIS VAGINAL 09/03/2011 729.5 foot pain ( soft tissue) 09/03/2011 112.1 CANDIDIASIS VAGINAL 09/03/2011 729.5 foot pain ( soft tissue) 09/03/2011 RENAY JACOB MD 112.1 CANDIDIASIS VAGINAL 09/03/2011 RENAY JACOB MD 729.5 foot pain (soft tissue) 09/03/2011 RENAY JACOB MD 112.1 CANDIDIASIS VAGINAL 09/03/2011 RENAY JACOB MD 729.5 foot pain (soft tissue) 09/03/2011 SINDHU COLLINS DDS 112.1 CANDIDIASIS VAGINAL 09/03/2011 SINDHU COLLINS DDS 729.5 foot pain (soft tissue) 09/24/2011 462 PHARYNGITIS ACUTE 09/24/2011 JORGE LUIS ORTIZ DO 462 PHARYNGITIS ACUTE 09/24/2011 462 PHARYNGITIS ACUTE 09/24/2011 462 PHARYNGITIS ACUTE 09/24/2011 462 PHARYNGITIS ACUTE 09/24/2011 RENAY JACOB MD 462 PHARYNGITIS ACUTE 09/24/2011 RENAY JACOB MD 462 PHARYNGITIS ACUTE 09/24/2011 SINDHU COLLINS DDS 462 PHARYNGITIS ACUTE 01/01/2012 372.30 CONJUNCTIVITIS UNSPECIFIED 01/01/2012 JORGE LUIS ORTIZ DO 372.30 CONJUNCTIVITIS UNSPECIFIED 01/01/2012 372.30 CONJUNCTIVITIS UNSPECIFIED 01/01/2012 372.30 CONJUNCTIVITIS UNSPECIFIED 01/01/2012 372.30 CONJUNCTIVITIS UNSPECIFIED 01/01/2012 RENAY JACOB MD 372.30 CONJUNCTIVITIS UNSPECIFIED 01/01/2012 RENAY JACOB MD 372.30 CONJUNCTIVITIS UNSPECIFIED 01/01/2012 SINDHU COLLINS DDS 372.30 CONJUNCTIVITIS UNSPECIFIED 02/22/2012 726.72 TENDONITIS POST TIBIAL 02/22/2012 JORGE LUIS ORTIZ DO 726.72 TENDONITIS POST TIBIAL 02/22/2012 726.72 TENDONITIS POST TIBIAL 02/22/2012 726.72 TENDONITIS POST TIBIAL 02/22/2012 726.72 TENDONITIS POST TIBIAL 02/22/2012 RENAY JACOB MD 726.72 TENDONITIS POST TIBIAL 02/22/2012 RENAY JACOB MD 726.72 TENDONITIS POST TIBIAL 02/22/2012 SINDHU COLLINS DDS 726.72 TENDONITIS POST TIBIAL 04/08/2012 268.9 VITAMIN D DEFICIENCY 04/08/2012 454.9 ASYMPTOMATIC VARICOSE VEINS 04/08/2012 727.00 SYNOVITIS AND TENOSYNOVITIS UNSPECIFIED 04/08/2012 780.79 OTHER MALAISE AND FATIGUE 04/08/2012 V70.0 ROUTINE GENERAL MEDICAL EXAMINATION AT A HEALTH CARE FACILITY 04/08/2012 JORGE LUIS ORTIZ DO 268.9 VITAMIN D DEFICIENCY 04/08/2012 JORGE LUIS ORTIZ DO 454.9 ASYMPTOMATIC VARICOSE VEINS 04/08/2012 JORGE LUIS ORTIZ DO 727.00 SYNOVITIS AND TENOSYNOVITIS UNSPECIFIED 04/08/2012 JORGE LUIS ORTIZ DO 780.79 OTHER MALAISE AND FATIGUE 04/08/2012 DIANA JORGE LUIS Jeffries V70.0 ROUTINE GENERAL MEDICAL EXAMINATION AT A HEALTH CARE FACILITY 04/08/2012 268.9 VITAMIN D DEFICIENCY 04/08/2012 454.9 ASYMPTOMATIC VARICOSE VEINS 04/08/2012 727.00 SYNOVITIS AND TENOSYNOVITIS UNSPECIFIED 04/08/2012 780.79 OTHER MALAISE AND FATIGUE 04/08/2012 V70.0 ROUTINE GENERAL MEDICAL EXAMINATION AT A HEALTH CARE FACILITY 04/08/2012 268.9 VITAMIN D DEFICIENCY 04/08/2012 454.9 ASYMPTOMATIC VARICOSE VEINS 04/08/2012 727.00 SYNOVITIS AND TENOSYNOVITIS UNSPECIFIED 04/08/2012 780.79 OTHER MALAISE AND FATIGUE 04/08/2012 V70.0 ROUTINE GENERAL MEDICAL EXAMINATION AT A HEALTH CARE FACILITY 04/08/2012 268.9 VITAMIN D DEFICIENCY 04/08/2012 454.9 ASYMPTOMATIC VARICOSE VEINS 04/08/2012 727.00 SYNOVITIS AND TENOSYNOVITIS UNSPECIFIED 04/08/2012 780.79 OTHER MALAISE AND FATIGUE 04/08/2012 V70.0 ROUTINE GENERAL MEDICAL EXAMINATION AT A HEALTH CARE FACILITY 04/08/2012 RENAY JACOB MD 268.9 VITAMIN D DEFICIENCY 04/08/2012 RENAY JACOB MD 454.9 ASYMPTOMATIC VARICOSE VEINS 04/08/2012 RENAY JACOB MD 727.00 SYNOVITIS AND TENOSYNOVITIS UNSPECIFIED 04/08/2012 RENAY JACOB MD 780.79 OTHER MALAISE AND FATIGUE 04/08/2012 RENAY JACOB MD V70.0 ROUTINE GENERAL MEDICAL EXAMINATION AT A HEALTH CARE FACILITY 04/08/2012 RENAY JACOB MD 268.9 VITAMIN D DEFICIENCY 04/08/2012 RENAY JACOB MD 454.9 ASYMPTOMATIC VARICOSE VEINS 04/08/2012 RENAY JACOB MD 727.00 SYNOVITIS AND TENOSYNOVITIS UNSPECIFIED 04/08/2012 RENAY JACOB MD 780.79 OTHER MALAISE AND FATIGUE 04/08/2012 RENAY JACOB MD V70.0 ROUTINE GENERAL MEDICAL EXAMINATION AT A HEALTH CARE FACILITY 04/08/2012 SINDHU COLLINS DDS 268.9 VITAMIN D DEFICIENCY 04/08/2012 SINDHU COLLINS DDS 454.9 ASYMPTOMATIC VARICOSE VEINS 04/08/2012 KARINA SAUCEDOS, SINDHU Lewis 727.00 SYNOVITIS AND TENOSYNOVITIS UNSPECIFIED 04/08/2012 KARINA SAUCEDOS, SINDHU Lewis 780.79 OTHER MALAISE AND FATIGUE 04/08/2012 KARINA SAUCEDOS, SINDHU Lewis V70.0 ROUTINE GENERAL MEDICAL EXAMINATION AT A HEALTH CARE FACILITY 10/31/2012 780.96 GENERALIZED PAIN 10/31/2012 780.96 GENERALIZED PAIN 10/31/2012 780.96 GENERALIZED PAIN 10/31/2012 RENAY JACOB MD 780.96 GENERALIZED PAIN 10/31/2012 RENAY JACOB MD 780.96 GENERALIZED PAIN 10/31/2012 KARINA MCCOY, SINDHU Lewis 780.96 GENERALIZED PAIN 11/04/2012 COREY DO, COLEMAN K Ot 883.0 11/04/2012 COREY DO, COLEMAN K Ot E000.8 11/04/2012 COREY DO, COLEMAN K Ot E849.0 11/04/2012 COREY DO, COLEMAN K Ot E920.8 11/07/2012 338.29 CHRONIC PAIN 11/07/2012 338.29 CHRONIC PAIN 11/07/2012 RENAY JACOB MD 338.29 CHRONIC PAIN 11/07/2012 RENAY JACOB MD 338.29 CHRONIC PAIN 11/07/2012 KARINA MCCOY, SINDHU Lewis 338.29 CHRONIC PAIN 12/03/2012 255.41 GLUCOCORTICOID DEFICIENCY 12/03/2012 300.00 ANXIETY UNSPEC 12/03/2012 V04.81 FLU DX (6 TO 35 MOS. IM) 12/03/2012 V05.3 HEP A (ADULT) DX 12/03/2012 RENAY JACOB MD 255.41 GLUCOCORTICOID DEFICIENCY 12/03/2012 RENAY JACOB MD 300.00 ANXIETY UNSPEC 12/03/2012 RENAY JACOB MD V04.81 FLU DX (6 TO 35 MOS. IM) 12/03/2012 RENAY JACOB MD V05.3 HEP A (ADULT) DX 12/03/2012 RENAY JACOB MD 255.41 GLUCOCORTICOID DEFICIENCY 12/03/2012 RENAY JACOB MD 300.00 ANXIETY UNSPEC 12/03/2012 RENAY JACOB MD V04.81 FLU DX (6 TO 35 MOS. IM) 12/03/2012 NIDIA PEOPLES, RENAY Lewis V05.3 HEP A (ADULT) DX 12/03/2012 KARINA DDS, SINDHU Lewis 255.41 GLUCOCORTICOID DEFICIENCY 12/03/2012 KARINA DDS, SINDHU Lewis 300.00 ANXIETY UNSPEC 12/03/2012 KARINA MCCOY, SINDHU Lewis V04.81 FLU DX (6 TO 35 MOS. IM) 12/03/2012 KARINA SAUCEDOS, SINDHU Lewis V05.3 HEP A (ADULT) DX 04/03/2013 NIDIA PEOPLES, RENAY Lewis 729.1 MYALGIA AND MYOSITIS UNSPECIFIED 04/03/2013 KARINA DDS, SINDHU Lewis 729.1 MYALGIA AND MYOSITIS UNSPECIFIED 06/16/2013 GURDEEP PEOPLES, JENNIFER Álvarez Ot 787.01 06/16/2013 JENNIFER MACKENZIE MD Ot 789.00 10/14/2014 GEORGIANA RODRIGUES DIVISION TRAFFIC SUPERINTENDENT Ot 611.71 12/10/2014 GEORGIANA RODRIGUES DIVISION TRAFFIC SUPERINTENDENT Ot 611.71 12/10/2014 ENRIQUETA PEOPLES, MARLEY T Ot 782.0 12/10/2014 ENRIQUETA PEOPLES, MARLEY T Ot 784.0 12/10/2014 ENRIQUETA PEOPLES, MARLEY T Ot 786.50 12/10/2014 ENRIQUETA PEOPLES, MARLEY T Ot 786.59 12/10/2014 ENRIQUETA PEOPLES, MARLEY T Ot 787.02 12/10/2014 ENRIQUETA PEOPLES, MARLEY T Ot 789.06 12/10/2014 GEORGIANA RODRIGUES DIVISION TRAFFIC SUPERINTENDENT Ot 611.71 07/07/2015 DYLAN STUBBS DIVISION TRAFFIC SUPERINTENDENT Ot R10.9 07/07/2015 DYLAN STUBBS DIVISION TRAFFIC SUPERINTENDENT Ot R30.0 10/19/2015 DARIUS FIELDS STEAM SHOVEL ENGINEER Ot G47.33 OBSTRUCTIVE SLEEP APNEA (ADULT) (PEDIATR 10/26/2015 DARIUS FIELDS STEAM SHOVEL ENGINEER Ot G47.33 OBSTRUCTIVE SLEEP APNEA (ADULT) (PEDIATR 10/10/2016 DYLAN STUBBS DIVISION TRAFFIC SUPERINTENDENT Ot R10.30 LOWER ABDOMINAL PAIN, UNSPECIFIED 10/10/2016 DYLAN STUBBS DIVISION TRAFFIC SUPERINTENDENT Ot R30.0 DYSURIA 10/10/2016 DYLAN STUBBS DIVISION TRAFFIC SUPERINTENDENT Ot R10.9 UNSPECIFIED ABDOMINAL PAIN 10/10/2016 DYLAN STUBBS DIVISION TRAFFIC SUPERINTENDENT Ot R30.0 DYSURIA 10/10/2016 DYLAN STUBBS DIVISION TRAFFIC SUPERINTENDENT Ot R10.30 LOWER ABDOMINAL PAIN, UNSPECIFIED 10/10/2016 DYLAN STUBBS DIVISION TRAFFIC SUPERINTENDENT Ot R30.0 DYSURIA 10/10/2016 DYLAN STUBBS DIVISION TRAFFIC SUPERINTENDENT Ot R10.9 UNSPECIFIED ABDOMINAL PAIN 10/10/2016 DYLAN STUBBS DIVISION TRAFFIC SUPERINTENDENT Ot R30.0 DYSURIA 10/10/2016 ALVINA PICKENS APRN Ot F41.9 ANXIETY DISORDER, UNSPECIFIED 10/10/2016 ALVINA PICKENS STEAM SHOVEL ENGINEER Ot R07.89 OTHER CHEST PAIN 10/10/2016 ALVINA PICKENS APRN Ot R07.9 CHEST PAIN, UNSPECIFIED 10/10/2016 ALVINA PICKENS APRN Ot R91.8 OTHER NONSPECIFIC ABNORMAL FINDING OF HAIDER 10/10/2016 ALVINA PICKENS APRN Ot Z79.899 OTHER BULL GANG WORKER (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) DRUG THERAPY 10/10/2016 DYLAN STUBBS DIVISION TRAFFIC SUPERINTENDENT Ot R10.30 LOWER ABDOMINAL PAIN, UNSPECIFIED 10/10/2016 DYLAN STUBBS DIVISION TRAFFIC SUPERINTENDENT Ot R30.0 DYSURIA 10/10/2016 DYLAN STUBBS DIVISION TRAFFIC SUPERINTENDENT Ot R10.9 UNSPECIFIED ABDOMINAL PAIN 10/10/2016 DYLAN STUBBS DIVISION TRAFFIC SUPERINTENDENT Ot R30.0 DYSURIA 10/10/2016 ALVINA PICKENS APRN Ot F41.9 ANXIETY DISORDER, UNSPECIFIED 10/10/2016 ALVINA PICKENS STEAM SHOVEL ENGINEER Ot R07.89 OTHER CHEST PAIN 10/10/2016 ALVINA PICKENS STEAM SHOVEL ENGINEER Ot R07.9 CHEST PAIN, UNSPECIFIED 10/10/2016 ALVINA PICKENS STEAM SHOVEL ENGINEER Ot R91.8 OTHER NONSPECIFIC ABNORMAL FINDING OF HAIDER 10/10/2016 ALVINA PICKENS STEAM SHOVEL ENGINEER Ot Z79.899 OTHER USP (CURRENT) DRUG THERAPY 10/16/2016 ALVINA PICKENS APRN Ot F41.9 ANXIETY DISORDER, UNSPECIFIED 10/16/2016 ALVINA PICKENS APRN Ot R07.89 OTHER CHEST PAIN 10/16/2016 ALVINA PICKENS APRN Ot R07.9 CHEST PAIN, UNSPECIFIED 10/16/2016 ALVINA PICKENS APRN Ot R91.8 OTHER NONSPECIFIC ABNORMAL FINDING OF HAIDER 10/16/2016 ALVINA PICKENS APRN Ot Z79.899 OTHER BULL GANG WORKER (CURRENT) DRUG THERAPY 10/17/2016 ALVINA PICKENS STEAM SHOVEL ENGINEER Ot F41.9 ANXIETY DISORDER, UNSPECIFIED 10/17/2016 ALVINA PICKENS STEAM SHOVEL ENGINEER Ot R07.89 OTHER CHEST PAIN 10/17/2016 ALVINA PICKENS APRN Ot R07.9 CHEST PAIN, UNSPECIFIED 10/17/2016 ALVINA PICKENS STEAM SHOVEL ENGINEER Ot R91.8 OTHER NONSPECIFIC ABNORMAL FINDING OF HAIDER 10/17/2016 ALVINA PICKENS APRN Ot Z79.899 OTHER BULL GANG WORKER (CURRENT) DRUG THERAPY 11/01/2016 MESFIN PERKINS MD Ot I34.0 NONRHEUMATIC MITRAL (VALVE) INSUFFICIENC 11/01/2016 MESFIN PERKINS MD Ot R06.02 SHORTNESS OF BREATH 11/01/2016 MESFIN PERKINS MD Ot R07.9 CHEST PAIN, UNSPECIFIED 11/01/2016 MESFIN PERKINS MD Ot Z82.49 FAMILY HX OF ISCHEM HEART DIS AND OTH DI 11/06/2016 TITA VASQUEZ Ot I34.0 NONRHEUMATIC MITRAL (VALVE) INSUFFICIENC 11/06/2016 TITA VASQUEZ Ot R06.02 SHORTNESS OF BREATH 11/06/2016 TITA VASQUEZ Ot R07.9 CHEST PAIN, UNSPECIFIED 11/06/2016 TITA VASQUEZ Ot Z82.49 FAMILY HX OF ISCHEM HEART DIS AND OTH DI 11/23/2016 TITA VASQUEZ Ot G47.33 OBSTRUCTIVE SLEEP APNEA (ADULT) (PEDIATR 11/23/2016 TITA VASQUEZ Ot R00.2 PALPITATIONS 11/23/2016 TITA VASQUEZ Ot R07.89 OTHER CHEST PAIN 11/23/2016 TITA VASQUEZ Ot Z82.49 FAMILY HX OF ISCHEM HEART DIS AND OTH DI 04/21/2017 WILSONFaridaDYLAN MARIE DIVISION TRAFFIC SUPERINTENDENT Ot R10.30 LOWER ABDOMINAL PAIN, UNSPECIFIED 04/21/2017 WILSONDEENADYLAN DIVISION TRAFFIC SUPERINTENDENT Ot R30.0 DYSURIA 04/21/2017 WILSONDEENADYLAN DIVISION TRAFFIC SUPERINTENDENT Ot R10.9 UNSPECIFIED ABDOMINAL PAIN 04/21/2017 ENOCDYLAN DIVISION TRAFFIC SUPERINTENDENT Ot R30.0 DYSURIA 04/21/2017 MESFIN PERKINS MD Ot I34.0 NONRHEUMATIC MITRAL (VALVE) INSUFFICIENC 04/21/2017 MESFIN PERKINS MD Ot R06.02 SHORTNESS OF BREATH 04/21/2017 MESFIN PERKINS MD Ot R07.9 CHEST PAIN, UNSPECIFIED 04/21/2017 MESFIN PERKINS MD Ot Z82.49 FAMILY HX OF ISCHEM HEART DIS AND OTH DI 04/21/2017 TITA VASQUEZ Ot I34.0 NONRHEUMATIC MITRAL (VALVE) INSUFFICIENC 04/21/2017 TITA VASQUEZ Ot R06.02 SHORTNESS OF BREATH 04/21/2017 TITA VASQUEZ Ot R07.9 CHEST PAIN, UNSPECIFIED 04/21/2017 TITA VASQUEZ Ot Z82.49 FAMILY HX OF ISCHEM HEART DIS AND OTH DI 04/21/2017 TTIA VASQUEZ Ot G47.33 OBSTRUCTIVE SLEEP APNEA (ADULT) (PEDIATR 04/21/2017 TITA VASQUEZ Ot R00.2 PALPITATIONS 04/21/2017 TITA VASQUEZ Ot R07.89 OTHER CHEST PAIN 04/21/2017 TITA VASQUEZ Ot Z82.49 FAMILY HX OF ISCHEM HEART DIS AND OTH DI 04/21/2017 AMA SCOTT Ot F32.9 MAJOR DEPRESSIVE DISORDER, SINGLE EPISOD 04/21/2017 AMA SCOTT Ot G43.909 MIGRAINE, UNSP, NOT INTRACTABLE, WITHOUT 04/21/2017 AMA SCOTT Ot K21.9 GASTRO-ESOPHAGEAL REFLUX DISEASE WITHOUT 04/21/2017 AMA SCOTT Ot R10.84 GENERALIZED ABDOMINAL PAIN 04/21/2017 AMA SCOTT Ot R11.2 NAUSEA WITH VOMITING, UNSPECIFIED 04/21/2017 AMA SCOTT Ot R19.7 DIARRHEA, UNSPECIFIED 04/21/2017 AMA SCOTT Ot Z82.49 FAMILY HX OF ISCHEM HEART DIS AND OTH DI 04/21/2017 AMA SCOTT Ot Z87.59 PERSONAL HISTORY OF COMP OF PREG, CHLDBR 04/21/2017 AMA SCOTT Ot Z90.49 ACQUIRED ABSENCE OF OTHER SPECIFIED PART 04/21/2017 AMA SCOTT Ot Z90.710 ACQUIRED ABSENCE OF BOTH CERVIX AND UTER 04/21/2017 DYLAN STUBBS [employer] TRAFFIC SUPERINTENDENT Ot R10.30 LOWER ABDOMINAL PAIN, UNSPECIFIED 04/21/2017 DYLAN STUBBS [employer] TRAFFIC SUPERINTENDENT Ot R30.0 DYSURIA 04/21/2017 DYLAN STUBBS [employer] TRAFFIC SUPERINTENDENT Ot R10.9 UNSPECIFIED ABDOMINAL PAIN 04/21/2017 DYLAN STUBBS [employer] TRAFFIC SUPERINTENDENT Ot R30.0 DYSURIA 04/21/2017 MESFIN PERKINS MD Ot I34.0 NONRHEUMATIC MITRAL (VALVE) INSUFFICIENC 04/21/2017 MESFIN PERKINS MD Ot R06.02 SHORTNESS OF BREATH 04/21/2017 MESFIN PERKINS MD Ot R07.9 CHEST PAIN, UNSPECIFIED 04/21/2017 MESFIN PERKINS MD Ot Z82.49 FAMILY HX OF ISCHEM HEART DIS AND OTH DI 04/21/2017 ITTA VASQUEZ Ot I34.0 NONRHEUMATIC MITRAL (VALVE) INSUFFICIENC 04/21/2017 TITA VASQUEZ Ot R06.02 SHORTNESS OF BREATH 04/21/2017 TITA VASQUEZ Ot R07.9 CHEST PAIN, UNSPECIFIED 04/21/2017 TITA VASQUEZ Ot Z82.49 FAMILY HX OF ISCHEM HEART DIS AND OTH DI 04/21/2017 TITA VASQUEZ Ot G47.33 OBSTRUCTIVE SLEEP APNEA (ADULT) (PEDIATR 04/21/2017 TITA VASQUEZ Ot R00.2 PALPITATIONS 04/21/2017 TITA VASQUEZ Ot R07.89 OTHER CHEST PAIN 04/21/2017 TITA VASQUEZ Ot Z82.49 FAMILY HX OF ISCHEM HEART DIS AND OTH DI 04/27/2017 AMA SCOTT Ot F32.9 MAJOR DEPRESSIVE DISORDER, SINGLE EPISOD 04/27/2017 AMA SCOTT Ot G43.909 MIGRAINE, UNSP, NOT INTRACTABLE, WITHOUT 04/27/2017 AMA SCOTT Ot K21.9 GASTRO-ESOPHAGEAL REFLUX DISEASE WITHOUT 04/27/2017 AMA SCOTT Ot R10.84 GENERALIZED ABDOMINAL PAIN 04/27/2017 AMA SCOTT Ot R11.2 NAUSEA WITH VOMITING, UNSPECIFIED 04/27/2017 AMA SCOTT Ot R19.7 DIARRHEA, UNSPECIFIED 04/27/2017 AMA SCOTT Ot Z82.49 FAMILY HX OF ISCHEM HEART DIS AND OTH DI 04/27/2017 AMA SCOTT Ot Z87.59 PERSONAL HISTORY OF COMP OF PREG, CHLDBR 04/27/2017 AMA SCOTT Ot Z90.49 ACQUIRED ABSENCE OF OTHER SPECIFIED PART 04/27/2017 AMA SCOTT Ot Z90.710 ACQUIRED ABSENCE OF BOTH CERVIX AND UTER 05/23/2017 DYLAN STUBBS [employer] TRAFFIC SUPERINTENDENT Ot R10.30 LOWER ABDOMINAL PAIN, UNSPECIFIED 05/23/2017 DYLAN STUBBS [employer] TRAFFIC SUPERINTENDENT Ot R30.0 DYSURIA 05/23/2017 DYLAN STUBBS [employer] TRAFFIC SUPERINTENDENT Ot R10.9 UNSPECIFIED ABDOMINAL PAIN 05/23/2017 DYLAN STUBBS [employer] TRAFFIC SUPERINTENDENT Ot R30.0 DYSURIA 05/23/2017 MESFIN PERKINS MD Ot I34.0 NONRHEUMATIC MITRAL (VALVE) INSUFFICIENC 05/23/2017 MESFIN PERKINS MD Ot R06.02 SHORTNESS OF BREATH 05/23/2017 MESFIN PERKINS MD Ot R07.9 CHEST PAIN, UNSPECIFIED 05/23/2017 MESFIN PERKINS MD Ot Z82.49 FAMILY HX OF ISCHEM HEART DIS AND OTH DI 05/23/2017 TITA VASQUEZ Ot I34.0 NONRHEUMATIC MITRAL (VALVE) INSUFFICIENC 05/23/2017 TITA VASQUEZ Ot R06.02 SHORTNESS OF BREATH 05/23/2017 TITA VASQUEZ Ot R07.9 CHEST PAIN, UNSPECIFIED 05/23/2017 TITA VASQUEZ Ot Z82.49 FAMILY HX OF ISCHEM HEART DIS AND OTH DI 05/23/2017 TITA VASQUEZ Ot G47.33 OBSTRUCTIVE SLEEP APNEA (ADULT) (PEDIATR 05/23/2017 TITA VASQUEZ Ot R00.2 PALPITATIONS 05/23/2017 TITA VASQUEZ Ot R07.89 OTHER CHEST PAIN 05/23/2017 TITA VASQUEZ Ot Z82.49 FAMILY HX OF ISCHEM HEART DIS AND OTH DI 05/24/2017 HELEN DUGAN APRN Ot K51.00 ULCERATIVE (CHRONIC) PANCOLITIS WITHOUT 05/30/2017 DYLAN STUBBS DIVISION TRAFFIC SUPERINTENDENT Ot R10.30 LOWER ABDOMINAL PAIN, UNSPECIFIED 05/30/2017 DYLAN STUBBS DIVISION TRAFFIC SUPERINTENDENT Ot R30.0 DYSURIA 05/30/2017 DYLAN STUBBS DIVISION TRAFFIC SUPERINTENDENT Ot R10.9 UNSPECIFIED ABDOMINAL PAIN 05/30/2017 DYLAN STUBBS DIVISION TRAFFIC SUPERINTENDENT Ot R30.0 DYSURIA 05/30/2017 MESFIN PERKINS MD Ot I34.0 NONRHEUMATIC MITRAL (VALVE) INSUFFICIENC 05/30/2017 MESFIN PERKINS MD Ot R06.02 SHORTNESS OF BREATH 05/30/2017 MESFIN PERKINS MD Ot R07.9 CHEST PAIN, UNSPECIFIED 05/30/2017 MESFIN PERKINS MD Ot Z82.49 FAMILY HX OF ISCHEM HEART DIS AND OTH DI 05/30/2017 TITA VASQUEZ Ot I34.0 NONRHEUMATIC MITRAL (VALVE) INSUFFICIENC 05/30/2017 TITA VASQUEZ Ot R06.02 SHORTNESS OF BREATH 05/30/2017 TITA VASQUEZ Ot R07.9 CHEST PAIN, UNSPECIFIED 05/30/2017 TITA VASQUEZ Ot Z82.49 FAMILY HX OF ISCHEM HEART DIS AND OTH DI 05/30/2017 TITA VASQUEZ Ot G47.33 OBSTRUCTIVE SLEEP APNEA (ADULT) (PEDIATR 05/30/2017 TITA VASQUEZ Ot R00.2 PALPITATIONS 05/30/2017 TITA VASQUEZ Ot R07.89 OTHER CHEST PAIN 05/30/2017 TITA VASQUEZ Ot Z82.49 FAMILY HX OF ISCHEM HEART DIS AND OTH DI 05/30/2017 HELEN DUGAN APRN Ot K51.00 ULCERATIVE (CHRONIC) PANCOLITIS WITHOUT 06/05/2017 HELEN DUGAN APRN Ot K51.00 ULCERATIVE (CHRONIC) PANCOLITIS WITHOUT Procedures Code Description [place] [address] ROUTINE VENIPUNCTURE 10/31/2012 98940 CMP 10/31/2012 84595 VITAMIN D 25-HYDROXY (D2,D3 , TOTAL) 10/31/2012 45177 CPK 10/31/2012 06459 TSH 10/31/2012 90696 CBC 10/31/2012 66516 ESR/SED RATE 10/31/2012 13636 CRP 10/31/2012 09932 RA FACTOR 10/31/2012 ANAANA NATTY ANALYZER (SCREEN) 10/31/2012 69483 ROUTINE VENIPUNCTURE 11/11/2012 33129 HEPATITIS PROFILE 11/12/2012 12034 CORTISOL 11/12/2012 09250 CCP ANTIBODY 11/12/2012 54323 DNA ANTIBODY (DOUBLE STRAND ) 11/12/2012 13148 SM ANTIBODY (ANTI MARIE) 11/12/2012 57596 LDH 11/13/2012 48859 ALDOLASE 11/13/2012 11996 ROUTINE VENIPUNCTURE 11/25/2012 39558 CORTISOL 11/25/2012 05305 ACTH 11/26/2012 Results Test Result Range Complete blood count (CBC) with automated white blood cell (WBC) differential - 10/10/16 11:35 Blood leukocytes automated count (number/volume) 12.2 10*3/uL 4.3-11.0 Blood erythrocytes automated count (number/volume) 4.85 10*6/uL 4.35-5.85 Venous blood hemoglobin measurement (mass/volume) 14.8 g/dL 11.5-16.0 Blood hematocrit (volume fraction) 43 % 35-52 Automated erythrocyte mean corpuscular volume 89 [foz_us] 80-99 Automated erythrocyte mean corpuscular hemoglobin (mass per erythrocyte) 31 pg 25-34 Automated erythrocyte mean corpuscular hemoglobin concentration measurement ( mass/volume) 34 g/dL 32-36 Automated erythrocyte distribution width ratio 12.7 % 10.0-14.5 Automated blood platelet count (count/volume) 197 10*3/uL 130-400 Automated blood platelet mean volume measurement 9.5 [foz_us] 7.4-10.4 Automated blood neutrophils/100 leukocytes 60 % 42-75 Automated blood lymphocytes/100 leukocytes 32 % 12-44 Blood monocytes/100 leukocytes 6 % 0-12 Automated blood eosinophils/100 leukocytes 2 % 0-10 Automated blood basophils/100 leukocytes 0 % 0-10 Blood neutrophils automated count (number/volume) 7.3 10*3 1.8-7.8 Blood lymphocytes automated count (number/volume) 3.9 10*3 1.0-4.0 Blood monocytes automated count (number/volume) 0.8 10*3 0.0-1.0 Automated eosinophil count 0.2 10*3/uL 0.0-0.3 Automated blood basophil count (count/volume) 0.0 10*3/uL 0.0-0.1 Fibrin D-dimer FEU measurement in platelet poor plasma (mass/volume) - 11:35 Fibrin D-dimer FEU measurement in platelet poor plasma (mass/volume) 0.57 ug/mL 0.00-0.49 Comprehensive metabolic panel - 10/10/16 11:35 Serum or plasma sodium measurement (moles/volume) 139 mmol/L 135-145 Serum or plasma potassium measurement (moles/volume) 3.8 mmol/L 3.6-5.0 Serum or plasma chloride measurement (moles/volume) 106 mmol/L 98-107 Carbon dioxide 25 mmol/L 21-32 Serum or plasma anion gap determination (moles/volume) 8 mmol/L 5-14 Serum or plasma urea nitrogen measurement (mass/volume) 16 mg/dL 7-18 Serum or plasma creatinine measurement (mass/volume) 1.10 mg/dL 0.60-1.30 Serum or plasma urea nitrogen/creatinine mass ratio 15 NRG Serum or plasma creatinine measurement with calculation of estimated glomerular filtration rate 57 NRG Serum or plasma glucose measurement (mass/volume) 90 mg/dL 70-105 Serum or plasma calcium measurement (mass/volume) 9.2 mg/dL 8.5-10.1 Serum or plasma total bilirubin measurement (mass/volume) 0.3 mg/dL 0.1-1.0 Serum or plasma alkaline phosphatase measurement (enzymatic activity/volume) 77 U/L 40-136 Serum or plasma aspartate aminotransferase measurement (enzymatic activity/ volume) 38 U/L 5-34 Serum or plasma alanine aminotransferase measurement (enzymatic activity/volume ) 69 U/L 0-55 Serum or plasma protein measurement (mass/volume) 6.4 g/dL 6.4-8.2 Serum or plasma albumin measurement (mass/volume) 3.9 g/dL 3.2-4.5 Serum or plasma troponin i.cardiac measurement (mass/volume) - 10/10/16 11:35 Serum or plasma troponin i.cardiac measurement (mass/volume) < ng/ mL <0.30 Complete urinalysis with reflex to culture - 10/10/16 11:47 Urine color determination YELLOW NRG Urine clarity determination CLEAR NRG Urine pH measurement by test strip 6 5-9 Specific gravity of urine by test strip 1.020 1.016- 1.022 Urine protein assay by test strip, semi-quantitative NEGATIVE NEGATIVE Urine glucose detection by automated test strip NEGATIVE NEGATIVE Erythrocytes detection in urine sediment by light microscopy NEGATIVE NEGATIVE Urine ketones detection by automated test strip NEGATIVE NEGATIVE Urine nitrite detection by test strip NEGATIVE NEGATIVE Urine total bilirubin detection by test strip NEGATIVE NEGATIVE Urine urobilinogen measurement by automated test strip (mass/volume) NORMAL NORMAL Urine leukocyte esterase detection by dipstick NEGATIVE NEGATIVE Automated urine sediment erythrocyte count by microscopy (number/high power field) NONE NRG Automated urine sediment leukocyte count by microscopy (number/high power field ) NONE NRG Bacteria detection in urine sediment by light microscopy NEGATIVE NRG Squamous epithelial cells detection in urine sediment by light microscopy 5-10 NRG Crystals detection in urine sediment by light microscopy NONE NRG Casts detection in urine sediment by light microscopy NONE NRG Mucus detection in urine sediment by light microscopy NEGATIVE NRG Complete urinalysis with reflex to culture NO NRG Complete blood count (CBC) with automated white blood cell (WBC) differential - 04/21/17 15:10 Blood leukocytes automated count (number/volume) 13.6 10*3/uL 4.3-11.0 Blood erythrocytes automated count (number/volume) 5.06 10*6/uL 4.35-5.85 Venous blood hemoglobin measurement (mass/volume) 15.4 g/dL 11.5-16.0 Blood hematocrit (volume fraction) 46 % 35-52 Automated erythrocyte mean corpuscular volume 90 [foz_us] 80-99 Automated erythrocyte mean corpuscular hemoglobin (mass per erythrocyte) 30 pg 25-34 Automated erythrocyte mean corpuscular hemoglobin concentration measurement ( mass/volume) 34 g/dL 32-36 Automated erythrocyte distribution width ratio 13.6 % 10.0-14.5 Automated blood platelet count (count/volume) 208 10*3/uL 130-400 Automated blood platelet mean volume measurement 10.5 [foz_us] 7.4-10.4 Automated blood neutrophils/100 leukocytes 66 % 42-75 Automated blood lymphocytes/100 leukocytes 26 % 12-44 Blood monocytes/100 leukocytes 6 % 0-12 Automated blood eosinophils/100 leukocytes 2 % 0-10 Automated blood basophils/100 leukocytes 0 % 0-10 Blood neutrophils automated count (number/volume) 9.0 10*3 1.8-7.8 Blood lymphocytes automated count (number/volume) 3.6 10*3 1.0-4.0 Blood monocytes automated count (number/volume) 0.8 10*3 0.0-1.0 Automated eosinophil count 0.2 10*3/uL 0.0-0.3 Automated blood basophil count (count/volume) 0.0 10*3/uL 0.0-0.1 Comprehensive metabolic panel - 04/21/17 15:10 Serum or plasma sodium measurement (moles/volume) 140 mmol/L 135-145 Serum or plasma potassium measurement (moles/volume) 3.9 mmol/L 3.6-5.0 Serum or plasma chloride measurement (moles/volume) 107 mmol/L 98-107 Carbon dioxide 24 mmol/L 21-32 Serum or plasma anion gap determination (moles/volume) 9 mmol/L 5-14 Serum or plasma urea nitrogen measurement (mass/volume) 12 mg/dL 7-18 Serum or plasma creatinine measurement (mass/volume) 0.78 mg/dL 0.60-1.30 Serum or plasma urea nitrogen/creatinine mass ratio 15 NRG Serum or plasma creatinine measurement with calculation of estimated glomerular filtration rate > NRG Serum or plasma glucose measurement (mass/volume) 83 mg/dL 70-105 Serum or plasma calcium measurement (mass/volume) 9.5 mg/dL 8.5-10.1 Serum or plasma total bilirubin measurement (mass/volume) 0.3 mg/dL 0.1-1.0 Serum or plasma alkaline phosphatase measurement (enzymatic activity/volume) 82 U/L 40-136 Serum or plasma aspartate aminotransferase measurement (enzymatic activity/ volume) 21 U/L 5-34 Serum or plasma alanine aminotransferase measurement (enzymatic activity/volume ) 32 U/L 0-55 Serum or plasma protein measurement (mass/volume) 7.3 g/dL 6.4-8.2 Serum or plasma albumin measurement (mass/volume) 4.2 g/dL 3.2-4.5 Lipase - 04/21/17 15:10 Lipase 13 U/L 8-78 Stool leukocytes detection by light microscopy - 04/21/17 16:35 FECAL WBC RESULTS ONLY FEW WBC'S OBSERVED NRG FECAL NOTE FECAL LEUKOCYTES MAY BE INTERMITTENTLY PRESENT OR NRG FECAL NOTE UNEVENLY DISTRIBUTED IN STOOL SPECIMENS, AND WBC NRG FECAL NOTE MORPHOLOGY DEGRADES DURING TRANSPORT NRG FECAL NOTE NOTE: NRG C DIFFICILE AG + TOXIN A/B. - 04/21/17 16:35 RESULTS NEGATIVE FOR ANTIGEN AND TOXIN A/B NRG Stool bacteria identification by culture - 04/21/17 16:35 Stool bacteria identification by culture N2 NR [id number] - 04/21/17 16:35 [id number] Specimen held 5 days if further workup is needed. NRG Complete urinalysis with reflex to culture - 04/21/17 19:25 Urine color determination YELLOW NRG Urine clarity determination CLEAR NRG Urine pH measurement by test strip 5 5-9 Specific gravity of urine by test strip 1.015 1.016- 1.022 Urine protein assay by test strip, semi-quantitative NEGATIVE NEGATIVE Urine glucose detection by automated test strip NEGATIVE NEGATIVE Erythrocytes detection in urine sediment by light microscopy NEGATIVE NEGATIVE Urine ketones detection by automated test strip NEGATIVE NEGATIVE Urine nitrite detection by test strip NEGATIVE NEGATIVE Urine total bilirubin detection by test strip NEGATIVE NEGATIVE Urine urobilinogen measurement by automated test strip (mass/volume) NORMAL NORMAL Urine leukocyte esterase detection by dipstick NEGATIVE NEGATIVE Automated urine sediment erythrocyte count by microscopy (number/high power field) NONE NRG Automated urine sediment leukocyte count by microscopy (number/high power field ) NONE NRG Bacteria detection in urine sediment by light microscopy NONE NRG Squamous epithelial cells detection in urine sediment by light microscopy 0-2 NRG Crystals detection in urine sediment by light microscopy NONE NRG Casts detection in urine sediment by light microscopy NONE NRG Mucus detection in urine sediment by light microscopy NONE NRG Complete urinalysis with reflex to culture NO NRG Stool occult blood screen - 05/24/17 12:05 Stool gastrointestinal hemoglobin detection POSITIVE NEGATIVE Stool leukocytes detection by light microscopy - 05/24/17 12:05 FECAL WBC RESULTS MODERATE # WBC'S OBSERVED ON DIRECT SMEAR NRG FECAL NOTE FECAL LEUKOCYTES MAY BE INTERMITTENTLY PRESENT OR NRG FECAL NOTE UNEVENLY DISTRIBUTED IN STOOL SPECIMENS, AND WBC NRG FECAL NOTE MORPHOLOGY DEGRADES DURING TRANSPORT NRG FECAL NOTE NOTE: NRG C DIFFICILE AG + TOXIN A/B. - 05/24/17 12:05 RESULTS NEGATIVE FOR ANTIGEN AND TOXIN A/B NRG Stool bacteria identification by culture - 05/24/17 12:05 [id number] - 05/24/17 12:05 Encounters ACCT No. Visit Date/Time Discharge Status Pt. Type Provider Facility Loc./Unit Complaint [id number] 05/12/2013 07:57:00 05/12/2013 23:59:59 CLS Outpatient SINDHU COLLINS DDS [id number] 04/03/2013 10:10:00 04/03/2013 23:59:59 CLS Outpatient RENAY JACOB MD [id number] 01/29/2013 10:13:00 01/29/2013 23:59:59 CLS Outpatient RENAY JACOB MD [id number] 04/08/2012 10:19:00 04/08/2012 23:59:59 CLS Outpatient [id number] 04/08/2012 10:19:00 04/08/2012 23:59:59 CLS Outpatient JORGE LUIS ORTIZ DO [id number] 12/03/2012 09:34:00 Document Registration [id number] 11/11/2012 09:50:00 Document Registration [id number] 10/31/2012 11:01:00 Document Registration [id number] 07/29/2017 08:00:00 07/29/2017 23:59:59 CLS Preadmit CECE HOUSE MD [facility] ENDO CHRONIC DIARRHEA [id number] 07/22/2017 05:40:00 07/22/2017 11:23:00 DIS Outpatient CECE HOUSE MD [facility] PREOP COLONOSCOPY [id number] 05/23/2017 12:33:00 05/23/2017 23:59:59 CLS Outpatient HELEN DUGAN STEAM SHOVEL ENGINEER [facility] RAD ABDOMINAL PAIN [id number] 04/21/2017 14:09:00 04/21/2017 20:00:00 DIS Emergency AMA SCOTT [facility] ER ABD PAIN,DIARRHEA [id number] 11/21/2016 06:40:00 11/21/2016 23:59:59 CLS Outpatient TITA VASQUEZ [facility] LAB R07.89 Z82.49 G47.33 R00.2 [id number] 11/05/2016 09:24:00 11/05/2016 23:59:59 CLS Outpatient TITA VASQUEZ [facility] CARD R07.9 [id number] 10/31/2016 12:52:00 10/31/2016 23:59:59 CLS Outpatient MESFIN PERKINS MD [facility] CARD CHEST PAIN R07.9 [id number] 10/10/2016 11:08:00 10/10/2016 13:38:00 DIS Emergency ALVINA PICKENS STE[employer]OVEL ENGINEER [facility] ER CHEST PAIN/SOA [id number] 10/18/2015 20:00:00 10/19/2015 06:58:00 DIS Outpatient DARIUS FIELDS STE[employer] SHOVEL ENGINEER [facility] SLEEP SNORING,EXCISSIVE DAYTIME SLEEPINESS [id number] 07/04/2015 09:58:00 07/04/2015 23:59:59 CLS Outpatient DYLAN STUBBS DIVISION TRAFFIC SUPERINTENDENT [facility] RAD FLANK PAIN, DYSTERIA [id number] 07/01/2015 11:15:00 07/01/2015 23:59:59 CLS Outpatient STEVEFaridaDYLAN MARIE Joshua DIVISION TRAFFIC SUPERINTENDENT [facility] LAB FLANK PAIN, DYSURIA [id number] 12/10/2014 02:48:00 12/10/2014 04:42:00 DIS Emergency ENRIQUETA PEOPLES, MARLEY Womack [facility] ER [id number] 09/16/2013 12:47:00 09/16/2013 23:59:59 CLS Outpatient GEORGIANA RODRIGUES DIV[employer] TRAFFIC SUPERINTENDENT [facility] RAD [id number] 06/16/2013 10:38:00 06/16/2013 16:44:00 DIS Emergency GURDEEP PEOPLES, JENNIFER Álvarez [facility] ER [id number] 11/03/2012 23:46:00 11/04/2012 00:22:00 DIS Emergency COLEMAN NICOLE DO [facility] ER [id number] 10/14/2014 11:31:00 Document Registration [id number] 10/14/2014 11:31:00 Document Registration [id number] 10/14/2014 11:31:00 Document Registration [id number] 10/14/2014 11:31:00 Document Registration
== END 2017-07-29 10:25 | disposition home or self-care (01) ==
LOC: ENDO 06:59
PROVIDERS: ATTEND Surgery
DX: K62.1 Rectal polyp (principal); F17.210 Nicotine dependence, cigarettes, uncomplicated; Z79.899 Other long term (current) drug therapy; K21.9 Gastro-esophageal reflux disease without esophagitis; F32.9 Major depressive disorder, single episode, unspecified; M79.7 Fibromyalgia

== ENCOUNTER → 2018-11-27 | Outpatient (CLI) | payer OTHER ==
[2018-11-27 19:29] LABS: BASOPHILS % (AUTO) 0 % (0-10); EOSINOPHILS # (AUTO) 0.1 10^3/uL (0.0-0.3); EOSINOPHILS % (AUTO) 1 % (0-10); HEMATOCRIT 40 % (35-52); LYMPHOCYTES % (AUTO) 30 % (12-44); MEAN CORPUSCULAR HEMOGLOBIN 29 PG (25-34); MEAN CORPUSCULAR HGB CONC 33 G/DL (32-36); MEAN CORPUSCULAR VOLUME 89 FL (80-99); MEAN PLATELET VOLUME 9.5 FL (7.4-10.4); MONOCYTES # (AUTO) 0.5 X 10^3 (0.0-1.0); MONOCYTES % (AUTO) 5 % (0-12); NEUTROPHILS # (AUTO) 6.6 X 10^3 (1.8-7.8); NEUTROPHILS % (AUTO) 64 % (42-75); PLATELET COUNT 255 10^3/uL (130-400); RED CELL DISTRIBUTION WIDTH 14.4 % (10.0-14.5); WHITE BLOOD COUNT 10.2 10^3/uL (4.3-11.0)
== END ==
LOC: LAB 19:00
PROVIDERS: ATTEND Nurse Practitioner Family
DX: K52.9 Noninfective gastroenteritis and colitis, unspecified (principal)
CPT/HCPCS: 36415; 85025; 87015; 87045; 87046; 87899

== ENCOUNTER 2019-01-26 01:45 | Emergency (ER) | payer SELFPAY ==
[~2019-01-26] VITALS: Ht 160 cm; Wt 98.4 kg
[2019-01-26] MEDS ORDERED: NS IV 1000 ML 1,000 ML IV SCH (02:15)
[2019-01-26] MEDS ORDERED: KETOROLAC 30 MG/ML VIAL IVP ONE (02:15)
[2019-01-26] MEDS ORDERED: cefTRIAXone FOR IV USE 1,000 MG in WATER (STERILE) FOR INJECTION 10 ML IV ONE (02:15)
[2019-01-26] MEDS ORDERED: DEXAMETHASONE 4 MG/ML SDV (DECADRON) IV ONE (02:15)
--- NOTE | 2019-01-26 02:26 | ED General ---
General Chief Complaint: General Problems/Pain Stated Complaint: SORE THROAT, BODY ACHES, SEVERE HEADACHES Nursing Triage Note: PT COMPLAINING OF GENERALIZED BODY ACHES AND A SORE THROAT Nursing Sepsis Screen: No Definite Risk History of Present Illness Date Seen by Provider: Jan 26, 2019 Time Seen by Provider: 02:20 Initial Comments 38 yo female states hx fibromyalgia this illness started yesterday with ST, now achy all over, backache has had some chills no documented fever no cough no N/V no D no urinary sx's has URI sx's of congestion and PALMER pt says her has been sick for > 7d with similar sx's seen yest and got IV Rocephin, now feels better so pt wants IV Rocephin also wants IV steroid and wants flu test, just re started working in [place] Allergies and Home Medications Allergies Coded Allergies: hydromorphone (Verified Allergy, Mild, ITCHING, 01/26/19) vortioxetine (Verified Allergy, Unknown, 01/26/19) Home Medications Atorvastatin Calcium 10 Mg Tablet, 10 MG PO DAILY, (Reported) Ergocalciferol (Vitamin D2) 50,000 Unit Capsule, 50,000 UNIT PO WEEKLY, (Reported) Estradiol 1 Each Patch.tdsw, 1 EACH TD Twice Weekly, (Reported) Omeprazole 40 Mg Capsule.dr, 40 MG PO DAILY, (Reported) Patient Home Medication List Home Medication List Reviewed: Yes Review of Systems Review of Systems Constitutional: chills EENTM: nose congestion, throat pain Respiratory: No cough Cardiovascular: No chest pain, No palpitations, No syncope Gastrointestinal: No abdominal pain, No diarrhea, No nausea, No vomiting Genitourinary: No no symptoms reported Past Ucylzfc-Bhrcux-Bzblli Hx Patient Social History Alcohol Use: Denies Use Recreational Drug Use: No Smoking Status: Current Everyday Smoker Type Used: Cigarettes Recent Foreign Travel: No Contact w/Someone Who Travel: No Recent Infectious Disease Expo: No Recent Hopitalizations: No Physical Abuse: No Sexual Abuse: No Mistreated: No Immunizations Up To Date Tetanus Booster (TDap): Less than 5yrs Date of Influenza Vaccine: Apr 01, 2017 Seasonal Allergies Seasonal Allergies: No Past Medical History Surgeries: Yes (CS X2, APPENDAGE REMOVED FROM COLON, WISDOM TEETH) Appendectomy, Section, Hysterectomy, Tonsillectomy Respiratory: No Pneumonia Cardiac: No (MITRAL VALVE PROLAPSE) Heart Murmur Neurological: Yes Headaches /Migraines Reproductive Disorders: No Female Reproductive Disorders: Endometriosis 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 Sexually Transmitted Disease: No HIV/AIDS: No Gastrointestinal: Yes Gastroesophageal Reflux, Chronic Diarrhea Musculoskeletal: Yes (CHRONIC "MUSCLE PAIN" X 10 YEARS, MYOFACIAL PAIN) Fibromyalgia Endocrine: No HEENT: No Loss of Vision: Bilateral Hearing Impairment: Denies Cancer: No Psychosocial: Yes Depression Integumentary: No Blood Disorders: No Adverse Reaction/Blood Tranf: No (N/A) Family Medical History Heart Disease, Diabetes, Hypertension Physical Exam Vital Signs Vital Signs - First Documented 01/26/19 01:55 Temp 99.2 Pulse 100 Resp 18 B/P (MAP) 153/77 (102) Pulse Ox 99 O2 Delivery Room Air Capillary Refill : Less Than 3 Seconds Height, Weight, BMI Height: 5'3.00" Weight: 217lbs. 8.0oz. 98.810428ow; 36.3 BMI Method:Stated General Appearance: Mild Distress Eyes: Bilateral Eye PERRL, Bilateral Eye EOMI HEENT: Moist Mucous Membranes, Pharyngeal Erythema (mild), TM Abnormal (L) (little injection) Neck: Supple, Other (no evidence of meningeal irritation) Respiratory: Normal Breath Sounds, No Accessory Muscle Use, No Respiratory Distress Cardiovascular: Regular Rate, Rhythm Gastrointestinal: Normal Bowel Sounds, Non Tender Progress/Results/Core Measures Suspected Sepsis Recent Fever Within 48 Hours: No Infection Criteria Present: None New/Unexplained Altered Menta: No Sepsis Screen: No Definite Risk SIRS Temperature:99.2 Pulse: 100 Respiratory Rate: 18 Laboratory Tests 01/26/19 03:01: White Blood Count 16.7H Blood Pressure 153 /77 Mean: 102 Laboratory Tests 01/26/19 02:25: Creatinine 0.91 01/26/19 03:01: Platelet Count 170 Results/Orders Lab Results Laboratory Tests Test 01/26/19 02:25 01/26/19 03:01 Range/Units Sodium Level 141 135-145 MMOL/L Potassium Level 3.6 3.6-5.0 MMOL/L Chloride Level 106 98-107 MMOL/L Carbon Dioxide Level 18 L 21-32 MMOL/L Anion Gap 17 H 5-14 MMOL/L Blood Urea Nitrogen 23 H 7-18 MG/DL Creatinine 0.91 0.60-1.30 MG/DL Estimat Glomerular Filtration Rate > 60 BUN/Creatinine Ratio 25 Glucose Level 98 70-105 MG/DL Calcium Level 9.2 8.5-10.1 MG/DL Group A Streptococcus Screen NEGATIVE NEGATIVE White Blood Count 16.7 H 4.3-11.0 10^3/uL Red Blood Count 3.79 L 4.35-5.85 10^6/uL Hemoglobin 11.1 L 11.5-16.0 G/DL Hematocrit 34 L 35-52 % Mean Corpuscular Volume 90 80-99 FL Mean Corpuscular Hemoglobin 29 25-34 PG Mean Corpuscular Hemoglobin Concent 33 32-36 G/DL Red Cell Distribution Width 13.9 10.0-14.5 % Platelet Count 170 130-400 10^3/uL Mean Platelet Volume 10.3 7.4-10.4 FL Neutrophils (%) (Auto) 78 H 42-75 % Lymphocytes (%) (Auto) 16 12-44 % Monocytes (%) (Auto) 5 0-12 % Eosinophils (%) (Auto) 0 0-10 % Basophils (%) (Auto) 0 0-10 % Neutrophils # (Auto) 13.0 H 1.8-7.8 X 10^3 Lymphocytes # (Auto) 2.6 1.0-4.0 X 10^3 Monocytes # (Auto) 0.9 0.0-1.0 X 10^3 Eosinophils # (Auto) 0.1 0.0-0.3 10^3/uL Basophils # (Auto) 0.0 0.0-0.1 10^3/uL Neutrophils % (Manual) 64 % Lymphocytes % (Manual) 24 % Monocytes % (Manual) 9 % Eosinophils % (Manual) 0 % Basophils % (Manual) 0 % Band Neutrophils 3 % Micro Results Microbiology 01/26/19 Influenza Types A,B Antigen (MIMI) - Final, Complete My Orders Orders - JOCE SINGER MD Iv Heplock-Insert (Order) (01/26/19 02:14) Ns Iv 1000 Ml (Sodium Chloride 0.9%) (01/26/19 02:15) Rapid Strep A Screen (01/26/19 02:14) Influenza A And B Antigens (01/26/19 02:14) Cbc With Automated Diff (01/26/19 02:14) Basic Metabolic Panel (01/26/19 02:14) Ceftriaxone For Iv Use (Rocephin For I (01/26/19 02:15) Ketorolac Injection (Toradol Injection) (01/26/19 02:15) Dexamethasone Injection (Decadron Inject (01/26/19 02:15) Manual Differential (01/26/19 03:01) Medications Given in ED Current Medications Medications Dose Ordered Sig/Yadira Route Start Time Stop Time Status Last Admin Dose Admin Ceftriaxone Sodium 1000 mg/ Sterile Water 10 ml @ 200 mls/hr ONCE ONCE IV 01/26/19 02:15 01/26/19 02:20 DC 01/26/19 02:28 200 MLS/HR Dexamethasone Sodium Phosphate 10 mg ONCE ONCE IV 01/26/19 02:15 01/26/19 02:20 DC 01/26/19 02:28 10 MG Ketorolac Tromethamine 30 mg ONCE ONCE IVP 01/26/19 02:15 01/26/19 02:20 DC 01/26/19 02:29 30 MG Vital Signs/I&O 01/26/19 01:55 Temp 99.2 Pulse 100 Resp 18 B/P (MAP) 153/77 (102) Pulse Ox 99 O2 Delivery Room Air Capillary Refill : Less Than 3 Seconds Blood Pressure Mean: 102 Departure Impression Primary Impression: Pharyngitis Qualified Codes: J02.9 - Acute pharyngitis, unspecified Disposition: 01 HOME, SELF-CARE Condition: Improved Departure-Patient Inst. Decision time for Depature: 03:44 Referrals: NO,LOCAL PHYSICIAN (PCP/Family) Primary Care Physician Patient Instructions: Sore Throat in Adults Scripts Prednisone (Prednisone) 20 Mg Tab 40 MG PO DAILY for 5 Days, #10 TAB 0 Refills Prov: JOCE SINGER MD 01/26/19 Azithromycin (Azithromycin) 250 Mg Tablet 250 MG PO DAILY, #4 TAB Prov: JOCE SINGER MD 01/26/19 Work/School Note: Family Work Note JOCE SINGER MD Jan 26, 2019 02:26
[2019-01-26 03:14] LABS: HEMATOCRIT 34 % (35-52); HEMOGLOBIN 11.1 G/DL (11.5-16.0); MEAN CORPUSCULAR HEMOGLOBIN 29 PG (25-34); MEAN CORPUSCULAR VOLUME 90 FL (80-99); WHITE BLOOD COUNT 16.7 10^3/uL (4.3-11.0)
[2019-01-26 03:15] LABS: BASOPHILS % (AUTO) 0 % (0-10); EOSINOPHILS # (AUTO) 0.1 10^3/uL (0.0-0.3); EOSINOPHILS % (AUTO) 0 % (0-10); LYMPHOCYTES # (AUTO) 2.6 X 10^3 (1.0-4.0); LYMPHOCYTES % (AUTO) 16 % (12-44); MEAN CORPUSCULAR HGB CONC 33 G/DL (32-36); MEAN PLATELET VOLUME 10.3 FL (7.4-10.4); MONOCYTES # (AUTO) 0.9 X 10^3 (0.0-1.0); MONOCYTES % (AUTO) 5 % (0-12); NEUTROPHILS % (AUTO) 78 % (42-75); PLATELET COUNT 170 10^3/uL (130-400); RED CELL DISTRIBUTION WIDTH 13.9 % (10.0-14.5)
[2019-01-26 03:19] LABS: BUN/CREATININE RATIO 25; CARBON DIOXIDE 18 MMOL/L (21-32); CHLORIDE 106 MMOL/L (98-107); CREATININE SERUM 0.91 MG/DL (0.60-1.30); GFR ESTIMATED > 60; GLUCOSE 98 MG/DL (70-105); POTASSIUM 3.6 MMOL/L (3.6-5.0); SODIUM 141 MMOL/L (135-145)
[2019-01-26 03:20] LABS: CALCIUM 9.2 MG/DL (8.5-10.1)
[2019-01-26 03:36] LABS: BAND NEUTROPHILS 3 %; BASOPHILS % (MANUAL) 0 %; EOSINOPHILS % (MANUAL) 0 %; LYMPHOCYTES % (MANUAL) 24 %; MONOCYTES % (MANUAL) 9 %; NEUTROPHILS % (MANUAL) 64 %
[2019-01-26] MEDS ORDERED: PRD20T PO (03:47)
[2019-01-26] MEDS ORDERED: AZIT250T12 PO (03:47)
[2019-01-26] MEDS ORDERED: AZITHROMYCIN 250 MG TAB (ZITHROMAX) PO ONE (04:00)
[2019-01-26 04:04] VITALS: BP 107/61
== END 2019-01-26 04:06 | disposition home or self-care (01) ==
LOC: EDUNIT# 01:45 → ER FS 01:47
DX: J02.9 Acute pharyngitis, unspecified (principal); M79.7 Fibromyalgia; G43.909 Migraine, unspecified, not intractable, without status migrainosus; K21.9 Gastro-esophageal reflux disease without esophagitis; F32.9 Major depressive disorder, single episode, unspecified; F17.210 Nicotine dependence, cigarettes, uncomplicated; Z87.01 Personal history of pneumonia (recurrent); Z88.5 Allergy status to narcotic agent; Z88.8 Allergy status to other drugs, medicaments and biological substances; Z90.49 Acquired absence of other specified parts of digestive tract; Z90.89 Acquired absence of other organs; Z90.710 Acquired absence of both cervix and uterus; Z82.49 Family history of ischemic heart disease and other diseases of the circulatory system
CPT/HCPCS: 36415; 80048; 85007; 85027; 87430; 87804

== ENCOUNTER → 2019-03-18 | Outpatient (CLI) | payer OTHER ==
[~2019-03-18] MED LIST changes: +AZIT250T12 PO
[2019-03-18 16:10] LABS: BASOPHILS % (AUTO) 0 % (0-10); EOSINOPHILS # (AUTO) 0.2 10^3/uL (0.0-0.3); EOSINOPHILS % (AUTO) 3 % (0-10); HEMATOCRIT 43 % (35-52); HEMOGLOBIN 14.3 G/DL (11.5-16.0); LYMPHOCYTES % (AUTO) 45 % (12-44); MEAN CORPUSCULAR HEMOGLOBIN 29 PG (25-34); MEAN CORPUSCULAR HGB CONC 33 G/DL (32-36); MEAN CORPUSCULAR VOLUME 87 FL (80-99); MEAN PLATELET VOLUME 10.2 FL (7.4-10.4); MONOCYTES # (AUTO) 0.6 X 10^3 (0.0-1.0); MONOCYTES % (AUTO) 6 % (0-12); NEUTROPHILS % (AUTO) 46 % (42-75); PLATELET COUNT 214 10^3/uL (130-400); RED CELL DISTRIBUTION WIDTH 14.9 % (10.0-14.5); WHITE BLOOD COUNT 8.8 10^3/uL (4.3-11.0)
[2019-03-18 16:31] LABS: ALANINE AMINOTRANSFERASE 32 U/L (0-55); ALBUMIN 4.3 GM/DL (3.2-4.5); ALKALINE PHOSPHATASE 95 U/L (40-136); BILIRUBIN,TOTAL 0.3 MG/DL (0.1-1.0); BUN/CREATININE RATIO 24; CALCIUM 9.2 MG/DL (8.5-10.1); CARBON DIOXIDE 23 MMOL/L (21-32); CHLORIDE 110 MMOL/L (98-107); CREATININE SERUM 0.92 MG/DL (0.60-1.30); GFR ESTIMATED > 60; GLUCOSE 96 MG/DL (70-105); POTASSIUM 3.8 MMOL/L (3.6-5.0); SODIUM 142 MMOL/L (135-145); TOTAL PROTEIN 7.4 GM/DL (6.4-8.2)
== END ==
LOC: LAB 16:01
PROVIDERS: ATTEND Family Medicine
DX: R53.83 Other fatigue (principal); R31.9 Hematuria, unspecified
CPT/HCPCS: 36415; 80053; 84443; 85025

== ENCOUNTER 2019-04-24 17:37 | Emergency (ER) | payer OTHER ==
[~2019-04-24] VITALS: Ht 160 cm; Wt 72.7 kg
[2019-04-24] MEDS ORDERED: ORPHENADRINE 60 MG/2 ML (NORFLEX) AMP IM ONE (18:00)
--- NOTE | 2019-04-24 18:13 | ED Back Pain ---
General Chief Complaint: Back Problems Stated Complaint: NECK / BACK PAIN Nursing Triage Note: PT TO ED W/ C/O LT UPPER BACK, SHOULDER ET NECK PAIN ET STIFFNESS ONSET UPON WAKING THIS AM. PT DENIES INJURY Nursing Sepsis Screen: No Definite Risk Source of Information: Patient Exam Limitations: No Limitations History of Present Illness Date Seen by Provider: Apr 24, 2019 Time Seen by Provider: 18:11 Initial Comments To ER with reports of left posterior shoulder neck and upper back pain that she awakened with this morning. Symptoms of been present all day, symptoms are worsened by driving, raising her left arm or turning her neck to either side. No chest pain no diaphoresis nausea vomiting or cough. Location: Paraspinous Muscles Timing/Duration: 12 Hours Severity: Moderate Pain/Injury Location: Back Associated Symptoms: denies symptoms Allergies and Home Medications Allergies Coded Allergies: hydromorphone (Verified Allergy, Mild, ITCHING, 01/26/19) vortioxetine (Verified Allergy, Unknown, 01/26/19) Home Medications Atorvastatin Calcium 10 Mg Tablet, 10 MG PO DAILY, (Reported) Azithromycin 250 Mg Tablet, 250 MG PO DAILY Prescribed by: JOCE SINGER on 01/26/19346 Ergocalciferol (Vitamin D2) 50,000 Unit Capsule, 50,000 UNIT PO WEEKLY, (Reported) Estradiol 1 Each Patch.tdsw, 1 EACH TD Twice Weekly, (Reported) Omeprazole 40 Mg Capsule.dr, 40 MG PO DAILY, (Reported) Prednisone 20 Mg Tab, 40 MG PO DAILY Prescribed by: JOCE SINGER on 01/26/19346 Patient Home Medication List Home Medication List Reviewed: Yes Review of Systems Constitutional: see HPI; No chills, No fever EENTM: see HPI Respiratory: no symptoms reported Cardiovascular: no symptoms reported Genitourinary: no symptoms reported Musculoskeletal: see HPI, muscle pain Skin: no symptoms reported Psychiatric/Neurological: No Symptoms Reported Past Aqbennb-Dutkit-Lqdopc Hx Patient Social History Alcohol Use: Denies Use Recreational Drug Use: No Smoking Status: Current Everyday Smoker Type Used: Cigarettes Recent Foreign Travel: No Contact w/Someone Who Travel: No Recent Infectious Disease Expo: No Recent Hopitalizations: No Immunizations Up To Date Tetanus Booster (TDap): Less than 5yrs Date of Influenza Vaccine: Apr 01, 2017 Seasonal Allergies Seasonal Allergies: No Past Medical History Surgeries: Yes (CS X2, APPENDAGE REMOVED FROM COLON, WISDOM TEETH) Appendectomy, Section, Hysterectomy, Tonsillectomy Respiratory: No Pneumonia Cardiac: No (MITRAL VALVE PROLAPSE) Heart Murmur Neurological: Yes Headaches /Migraines Reproductive Disorders: No 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 Sexually Transmitted Disease: No HIV/AIDS: No Gastrointestinal: Yes Gastroesophageal Reflux, Chronic Diarrhea Musculoskeletal: Yes (CHRONIC "MUSCLE PAIN" X 10 YEARS, MYOFACIAL PAIN) Fibromyalgia Endocrine: No HEENT: No Loss of Vision: Bilateral Hearing Impairment: Denies Cancer: No Psychosocial: Yes Depression Integumentary: No Blood Disorders: No Adverse Reaction/Blood Tranf: No (N/A) Family Medical History Heart Disease, Diabetes, Hypertension Physical Exam Vital Signs Vital Signs - First Documented 04/24/19 17:41 Temp 36.7 Pulse 82 Resp 18 B/P (MAP) 120/85 (97) Pulse Ox 100 O2 Delivery Room Air Capillary Refill : Less Than 3 Seconds Height, Weight, BMI Height: 5'3.00" Weight: 217lbs. 8.0oz. 98.341461hj; 28.00 BMI Method:Stated General Appearance: No Apparent Distress, WD/WN HEENT: PERRL/EOMI, TMs Normal Neck: Full Range of Motion, Normal Inspection, Other (unable to turn head to either direction left or right without increasing her pain. There is no palpable spasm, swallows her own saliva, no hot potato voice, no cough no distress) Cardiovascular: Regular Rate, Rhythm, Normal Peripheral Pulses Respiratory: No Accessory Muscle Use, No Respiratory Distress Neurologic/Psychiatric: Alert, Oriented x3 Skin: Normal Color, Warm/Dry Progress/Results/Core Measures Results/Orders Lab Results Laboratory Tests Test 04/24/19 18:20 Range/Units White Blood Count 8.6 4.3-11.0 10^3/uL Red Blood Count 5.08 4.35-5.85 10^6/uL Hemoglobin 14.2 11.5-16.0 G/DL Hematocrit 44 35-52 % Mean Corpuscular Volume 86 80-99 FL Mean Corpuscular Hemoglobin 28 25-34 PG Mean Corpuscular Hemoglobin Concent 33 32-36 G/DL Red Cell Distribution Width 15.8 H 10.0-14.5 % Platelet Count 201 130-400 10^3/uL Mean Platelet Volume 9.7 7.4-10.4 FL Neutrophils (%) (Auto) 57 42-75 % Lymphocytes (%) (Auto) 35 12-44 % Monocytes (%) (Auto) 7 0-12 % Eosinophils (%) (Auto) 1 0-10 % Basophils (%) (Auto) 0 0-10 % Neutrophils # (Auto) 4.9 1.8-7.8 X 10^3 Lymphocytes # (Auto) 3.0 1.0-4.0 X 10^3 Monocytes # (Auto) 0.6 0.0-1.0 X 10^3 Eosinophils # (Auto) 0.1 0.0-0.3 10^3/uL Basophils # (Auto) 0.0 0.0-0.1 10^3/uL Troponin I < 0.028 <0.028 NG/ML My Orders Orders - ALVINA PICKENS APRN Orphenadrine Injection (Norflex Injectio (04/24/19 18:00) Chest 1 View, Ap/Pa Only (04/24/19 17:53) Troponin I (04/24/19 17:53) Ekg Tracing (04/24/19 17:53) Cbc With Automated Diff (04/24/19 17:53) Medications Given in ED Current Medications Medications Dose Ordered Sig/Yadira Route Start Time Stop Time Status Last Admin Dose Admin Orphenadrine Citrate 60 mg ONCE ONCE IM 04/24/19 18:00 04/24/19 18:01 DC 04/24/19 18:03 60 MG Vital Signs/I&O 04/24/19 17:41 Temp 36.7 Pulse 82 Resp 18 B/P (MAP) 120/85 (97) Pulse Ox 100 O2 Delivery Room Air Blood Pressure Mean: 97 POS Departure Impression Primary Impression: Torticollis Disposition: HOME, SELF-CARE Condition: Improved Departure-Patient Inst. Decision time for Depature: 18:55 Referrals: IFRAH TORRES DO (PCP) Primary Care Physician Patient Instructions: NO INSTRUCTIONS GIVEN, Torticollis, Adult Add. Discharge Instructions: 1. Return to ER for any concerns 2. Follow-up with your doctor next week 3. Anti-inflammatories and muscle relaxers as directed. All discharge instructions reviewed with patient and/or family. Voiced understanding. Scripts Methocarbamol (Robaxin-750) 750 Mg Tablet 750 MG PO Q4H PRN for PAIN-MODERATE (4-6), #20 TAB Prov: ALVINA PICKENS APRN 04/24/19 Work/School Note: Work Release Form Date Seen in the Emergency Department: Apr 24, 2019 Return to Work: Apr 26, 2019 ALVINA PICKENS APRN Apr 24, 2019 18:13 POS
[2019-04-24 18:30] LABS: BASOPHILS % (AUTO) 0 % (0-10); EOSINOPHILS # (AUTO) 0.1 10^3/uL (0.0-0.3); EOSINOPHILS % (AUTO) 1 % (0-10); HEMATOCRIT 44 % (35-52); HEMOGLOBIN 14.2 G/DL (11.5-16.0); LYMPHOCYTES % (AUTO) 35 % (12-44); MEAN CORPUSCULAR HEMOGLOBIN 28 PG (25-34); MEAN CORPUSCULAR HGB CONC 33 G/DL (32-36); MEAN CORPUSCULAR VOLUME 86 FL (80-99); MEAN PLATELET VOLUME 9.7 FL (7.4-10.4); MONOCYTES # (AUTO) 0.6 X 10^3 (0.0-1.0); MONOCYTES % (AUTO) 7 % (0-12); NEUTROPHILS # (AUTO) 4.9 X 10^3 (1.8-7.8); NEUTROPHILS % (AUTO) 57 % (42-75); PLATELET COUNT 201 10^3/uL (130-400); RED CELL DISTRIBUTION WIDTH 15.8 % (10.0-14.5); WHITE BLOOD COUNT 8.6 10^3/uL (4.3-11.0)
[2019-04-24] MEDS ORDERED: METH-313 PO ×2 (18:56→19:50)
--- NOTE | 2019-04-24 19:22 | Diagnostic Imaging Report ---
INDICATION: Left upper back pain, shoulder pain and neck pain. Onset this morning. EXAMINATION: Single view portable chest 04/24/2019 COMPARISON: 10/10/2016 FINDINGS: The heart is stable. Pulmonary vasculature is unchanged. The lungs are clear. No infiltrates, effusions or pneumothorax. IMPRESSION: Unremarkable chest Dictated by: Dictated on workstation # [id number]
[2019-04-24 19:45] VITALS: BP 120/85
== END 2019-04-24 19:45 | disposition home or self-care (01) ==
LOC: EDUNIT# 17:37 → ER 17:38
DX: M43.6 Torticollis (principal); G43.909 Migraine, unspecified, not intractable, without status migrainosus; K21.9 Gastro-esophageal reflux disease without esophagitis; M79.7 Fibromyalgia; F32.9 Major depressive disorder, single episode, unspecified; F17.210 Nicotine dependence, cigarettes, uncomplicated; Z90.49 Acquired absence of other specified parts of digestive tract; Z90.89 Acquired absence of other organs; Z90.710 Acquired absence of both cervix and uterus; Z88.8 Allergy status to other drugs, medicaments and biological substances; Z88.5 Allergy status to narcotic agent; Z79.52 Long term (current) use of systemic steroids; Z82.49 Family history of ischemic heart disease and other diseases of the circulatory system
CPT/HCPCS: 36415; 71045; 84484; 85025; 93005

== ENCOUNTER → 2019-04-27 | Outpatient (CLI) | payer OTHER ==
[~2019-04-27] MED LIST changes: +METH-313 PO
--- NOTE | 2019-04-27 16:48 | Diagnostic Imaging Report ---
EXAM: CERVICAL SPINE 3 VIEWS OR LESS. INDICATION: Neck pain. COMPARISON: None. FINDINGS: Normal alignment. Vertebral body heights are preserved. No fractures. Mild degenerative endplate changes. Normal prevertebral soft tissues. IMPRESSION: Mild spondylotic changes in the cervical spine. No acute radiographic findings. Dictated by: Dictated on workstation # [id number]
== END ==
LOC: RAD 15:53
PROVIDERS: ATTEND Nurse Practitioner Family
DX: M47.812 Spondylosis without myelopathy or radiculopathy, cervical region (principal)
CPT/HCPCS: 72040

== ENCOUNTER 2019-06-16 08:30 | Outpatient (RCR) | payer OTHER | END 2019-06-16 09:49 | disposition home or self-care (01) | PROVIDERS: ATTEND Family Medicine | DX: J45.909 Unspecified asthma, uncomplicated (principal); M19.90 Unspecified osteoarthritis, unspecified site; M54.2 Cervicalgia; M54.5 Low back pain; R51 Headache; Z72.0 Tobacco use ==

== ENCOUNTER 2019-08-17 02:54 | Emergency (ER) | payer OTHER ==
[~2019-08-17] VITALS: Ht 162.5 cm; Wt 97.0 kg
[~2019-08-17 02:54] MED LIST changes: +OMEP40CA27 PO; -OMEP40CA36 PO
[2019-08-17] MEDS ORDERED: ASPIRIN 81 MG CHEW (CHILDREN'S ASA) PO ONE (03:00)
[2019-08-17] MEDS ORDERED: LACTATED RINGERS 1,000 ML IV ONE (03:12)
[2019-08-17 03:27] LABS: BASOPHILS % (AUTO) 0 % (0-10); EOSINOPHILS # (AUTO) 0.1 10^3/uL (0.0-0.3); EOSINOPHILS % (AUTO) 1 % (0-10); HEMATOCRIT 44 % (35-52); HEMOGLOBIN 14.6 G/DL (11.5-16.0); LYMPHOCYTES # (AUTO) 5.3 X 10^3 (1.0-4.0); LYMPHOCYTES % (AUTO) 42 % (12-44); MEAN CORPUSCULAR HEMOGLOBIN 29 PG (25-34); MEAN CORPUSCULAR HGB CONC 33 G/DL (32-36); MEAN CORPUSCULAR VOLUME 88 FL (80-99); MEAN PLATELET VOLUME 10.3 FL (7.4-10.4); MONOCYTES # (AUTO) 0.8 X 10^3 (0.0-1.0); MONOCYTES % (AUTO) 6 % (0-12); NEUTROPHILS # (AUTO) 6.3 X 10^3 (1.8-7.8); NEUTROPHILS % (AUTO) 51 % (42-75); PLATELET COUNT 197 10^3/uL (130-400); WHITE BLOOD COUNT 12.6 10^3/uL (4.3-11.0)
[2019-08-17 03:56] LABS: SALICYLATE < 5.0 MG/DL (5.0-20.0)
[2019-08-17 03:58] LABS: ALANINE AMINOTRANSFERASE 25 U/L (0-55); ALBUMIN 4.7 GM/DL (3.2-4.5); ALKALINE PHOSPHATASE 101 U/L (40-136); BILIRUBIN,TOTAL 0.4 MG/DL (0.1-1.0); BUN/CREATININE RATIO 22; CALCIUM 9.4 MG/DL (8.5-10.1); CARBON DIOXIDE 20 MMOL/L (21-32); CHLORIDE 107 MMOL/L (98-107); CREATININE SERUM 0.97 MG/DL (0.60-1.30); GFR ESTIMATED > 60; GLUCOSE 106 MG/DL (70-105); POTASSIUM 3.1 MMOL/L (3.6-5.0); SODIUM 139 MMOL/L (135-145); TOTAL PROTEIN 7.6 GM/DL (6.4-8.2)
--- NOTE | 2019-08-17 04:04 | ED Chest Pain ---
General Chief Complaint: Chest Pain Stated Complaint: CP Source: patient Exam Limitations: no limitations History of Present Illness Date Seen by Provider: Aug 17, 2019 Time Seen by Provider: 02:55 Initial Comments Here with report of left chest pain. Pointed lateral to the left breast. 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 She got very anxious. The tried to calm her but ultimately called EMS. Before their arrival, they elected to come to the ER direct via POV. Denies nausea or vomiting and is unsure of what is going on. Patient had episode of staring off and not talking during history. She had no change in vital signs during that period. Patient's indicated this was what was happening of the house as well. No history of this. Timing/Duration: 1 hour, changing over time Severity/Quality: moderate, sharp Location: other (left lateral chest wall) Radiation: no radiation Activities at Onset: none Prior CP/Workup: echocardiography, stress test Modifying Factors: improves with rest ASA po AGENCY OWNER: No NTG SL AGENCY OWNER: No Associated Symptoms: No abdominal pain, No back pain, No nausea/vomiting, No shortness of breath Allergies and Home Medications Allergies Coded Allergies: hydromorphone (Verified Allergy, Mild, ITCHING, 01/26/19) vortioxetine (Verified Allergy, Unknown, 01/26/19) Home Medications Atorvastatin Calcium 10 Mg Tablet, 10 MG PO DAILY, (Reported) Azithromycin 250 Mg Tablet, 250 MG PO DAILY Prescribed by: JOCE SINGER on 01/26/19346 Ergocalciferol (Vitamin D2) 50,000 Unit Capsule, 50,000 UNIT PO WEEKLY, (Reported) Estradiol 1 Each Patch.tdsw, 1 EACH TD Twice Weekly, (Reported) Methocarbamol 750 Mg Tablet, 750 MG PO Q4H PRN for PAIN-MODERATE (4-6) . Prescribed by: ALVINA PICKENS on 04/24/191949 Omeprazole 40 Mg Capsule.dr, 40 MG PO DAILY, (Reported) Prednisone 20 Mg Tab, 40 MG PO DAILY Prescribed by: JOCE SINGER on 01/26/19346 Patient Home Medication List Home Medication List Reviewed: Yes Review of Systems Review of Systems Constitutional: no symptoms reported EENTM: No Symptoms Reported Respiratory: Shortness of Air, Wheezing Cardiovascular: Chest Pain; Denies Edema Gastrointestinal: Denies Abdominal Pain, Denies Nausea, Denies Vomiting Genitourinary: No Symptoms Reported Musculoskeletal: see HPI, muscle pain; No muscle weakness, No neck pain Skin: no symptoms reported Psychiatric/Neurological: See HPI; Denies Headache, Denies Weakness Endocrine: No Symptoms Reported All Other Systems Reviewed Negative Unless Noted: Yes Past Guqjbzt-Elhdlz-Uoouda Hx Past Med/Social Hx: Reviewed Nursing Past Med/Soc Hx Patient Social History Alcohol Use: Denies Use Recreational Drug Use: No Smoking Status: Current Everyday Smoker Type Used: Cigarettes Recent Foreign Travel: No Contact w/Someone Who Travel: No Recent Hopitalizations: No Immunizations Up To Date Tetanus Booster (TDap): Less than 5yrs Date of Influenza Vaccine: Apr 01, 2017 Seasonal Allergies Seasonal Allergies: No Past Medical History Surgeries: Yes (CS X2, APPENDAGE REMOVED FROM COLON, WISDOM TEETH) Appendectomy, Section, Hysterectomy, Tonsillectomy Respiratory: No Pneumonia Cardiac: No (MITRAL VALVE PROLAPSE) Heart Murmur Neurological: Yes Headaches /Migraines Reproductive Disorders: No 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 Sexually Transmitted Disease: No HIV/AIDS: No Gastrointestinal: Yes Gastroesophageal Reflux, Chronic Diarrhea Musculoskeletal: Yes (CHRONIC "MUSCLE PAIN" X 10 YEARS, MYOFACIAL PAIN) Fibromyalgia Endocrine: No HEENT: No Loss of Vision: Bilateral Hearing Impairment: Denies Cancer: No Psychosocial: Yes Depression Integumentary: No Blood Disorders: No Adverse Reaction/Blood Tranf: No (N/A) Family Medical History Reviewed Nursing Family Hx Heart Disease, Diabetes, Hypertension Physical Exam Vital Signs Vital Signs - First Documented 08/17/19 02:55 Temp 36.2 Pulse 95 Resp 18 B/P (MAP) 139/71 (93) O2 Delivery Room Air Capillary Refill : Height, Weight, BMI Height: 5'3.00" Weight: 217lbs. 8.0oz. 98.683447kg; 28.00 BMI Method:Stated General Appearance: No Apparent Distress, WD/WN HEENT: PERRL/EOMI, Pharynx Normal Neck: Non Tender, Supple Respiratory: Lungs Clear, Normal Breath Sounds Cardiovascular: No Murmur, Tachycardia Gastrointestinal: Non Tender, Soft Extremity: Normal Range of Motion, Non Tender Neurologic/Psychiatric: Alert, Oriented x3 Skin: Normal Color, Warm/Dry Progress/Results/Core Measures Results/Orders Lab Results Laboratory Tests Test 08/17/19 02:10 08/17/19 03:12 08/17/19 04:40 Range/Units Troponin I < 0.028 < 0.028 <0.028 NG/ML Acetaminophen Level < 10 L 10-30 UG/ML White Blood Count 12.6 H 4.3-11.0 10^3/uL Red Blood Count 5.03 4.35-5.85 10^6/uL Hemoglobin 14.6 11.5-16.0 G/DL Hematocrit 44 35-52 % Mean Corpuscular Volume 88 80-99 FL Mean Corpuscular Hemoglobin 29 25-34 PG Mean Corpuscular Hemoglobin Concent 33 32-36 G/DL Red Cell Distribution Width 14.0 10.0-14.5 % Platelet Count 197 130-400 10^3/uL Mean Platelet Volume 10.3 7.4-10.4 FL Neutrophils (%) (Auto) 51 42-75 % Lymphocytes (%) (Auto) 42 12-44 % Monocytes (%) (Auto) 6 0-12 % Eosinophils (%) (Auto) 1 0-10 % Basophils (%) (Auto) 0 0-10 % Neutrophils # (Auto) 6.3 1.8-7.8 X 10^3 Lymphocytes # (Auto) 5.3 H 1.0-4.0 X 10^3 Monocytes # (Auto) 0.8 0.0-1.0 X 10^3 Eosinophils # (Auto) 0.1 0.0-0.3 10^3/uL Basophils # (Auto) 0.0 0.0-0.1 10^3/uL Prothrombin Time 12.0 L 12.2-14.7 SEC INR Comment 0.9 0.8-1.4 Activated Partial Thromboplast Time 28 24-35 SEC D-Dimer 0.36 0.00-0.49 UG/ML Sodium Level 139 135-145 MMOL/L Potassium Level 3.1 L 3.6-5.0 MMOL/L Chloride Level 107 98-107 MMOL/L Carbon Dioxide Level 20 L 21-32 MMOL/L Anion Gap 12 5-14 MMOL/L Blood Urea Nitrogen 21 H 7-18 MG/DL Creatinine 0.97 0.60-1.30 MG/DL Estimat Glomerular Filtration Rate > 60 BUN/Creatinine Ratio 22 Glucose Level 106 H 70-105 MG/DL Calcium Level 9.4 8.5-10.1 MG/DL Corrected Calcium 8.5-10.1 MG/DL Magnesium Level 2.0 1.6-2.4 MG/DL Total Bilirubin 0.4 0.1-1.0 MG/DL Aspartate Amino Transf (AST/SGOT) 22 5-34 U/L Alanine Aminotransferase (ALT/SGPT) 25 0-55 U/L Alkaline Phosphatase 101 40-136 U/L Myoglobin 58.9 10.0-92.0 NG/ML C-Reactive Protein High Sensitivity 0.77 H 0.00-0.50 MG/DL Total Protein 7.6 6.4-8.2 GM/DL Albumin 4.7 H 3.2-4.5 GM/DL Salicylates Level < 5.0 L 5.0-20.0 MG/DL Serum Alcohol < 10 <10 MG/DL Urine Opiates Screen NEGATIVE NEGATIVE Urine Oxycodone Screen NEGATIVE NEGATIVE Urine Methadone Screen NEGATIVE NEGATIVE Urine Propoxyphene Screen NEGATIVE NEGATIVE Urine Barbiturates Screen NEGATIVE NEGATIVE Ur Tricyclic Antidepressants Screen NEGATIVE NEGATIVE Urine Phencyclidine Screen NEGATIVE NEGATIVE Urine Amphetamines Screen NEGATIVE NEGATIVE Urine Methamphetamines Screen NEGATIVE NEGATIVE Urine Benzodiazepines Screen NEGATIVE NEGATIVE Urine Cocaine Screen NEGATIVE NEGATIVE Urine Cannabinoids Screen POSITIVE H NEGATIVE My Orders Orders - JENNIFER MACKENZIE MD Cbc With Automated Diff (08/17/19 02:59) Magnesium (08/17/19 02:59) Chest 1 View, Ap/Pa Only (08/17/19 02:59) Ekg Tracing (08/17/19 02:59) Comprehensive Metabolic Panel (08/17/19 02:59) Myoglobin Serum (08/17/19 02:59) Protime With Inr (08/17/19 02:59) Partial Thromboplastin Time (08/17/19 02:59) O2 (08/17/19 02:59) Monitor-Rhythm Ecg Trace Only (08/17/19 02:59) Lipid Panel (08/18/19 06:00) Ed Iv/Invasive Line Start (08/17/19 02:59) Fibrin Degradation Products (08/17/19 02:59) Troponin I (08/17/19 02:59) Aspirin Chewable Tablet (Baby Aspirin Ch (08/17/19 03:00) Straight Cath For Spec.-Adult (08/17/19 03:12) Lactated Ringers (Lr 1000 Ml Iv Solution (08/17/19 03:12) Alcohol (08/17/19 03:12) Hs C Reactive Protein (08/17/19 03:12) Drug Screen Stat (Urine) (08/17/19 03:12) Salicylate (08/17/19 03:12) Ct Head Wo (08/17/19 03:34) Acetaminophen (08/17/19 03:52) Troponin I (08/17/19 04:44) Medications Given in ED Current Medications Medications Dose Ordered Sig/Yadira Route Start Time Stop Time Status Last Admin Dose Admin Aspirin 324 mg ONCE ONCE PO 08/17/19 03:00 08/17/19 03:01 DC 08/17/19 03:26 324 MG Lactated Ringer's 1,000 ml @ 0 mls/hr Q0M ONCE IV 08/17/19 03:12 08/17/19 03:14 DC 08/17/19 03:26 1,000 MLS/HR Vital Signs/I&O 08/17/19 08/17/19 02:55 02:55 Temp 36.2 Pulse 95 Resp 18 B/P (MAP) 139/71 (93) O2 Delivery Room Air Room Air Progress Progress Note : Progress Note Seen and evaluated. IV, labs, EKG, chest x-ray, ASA 324 mg by mouth ordered. Patient had episode where she stopped talking and just stared off into space. Patient's was unable to get her to respond. Vital signs remained the same during the episode. No shaking. adamantly denies that they were using any drugs or other substances tonight. We will go ahead and get CT of the head to rule out bleed. Also will check UDS panel. LR 1 L bolus ordered. Monitor patient. 0444: Overall doing better. She is not sure as to what's going on but does admit that she's been having back pain tonight did have a rough night at work. She does have history of fibromyalgia. She did take her medicines a little later tonight because they had to work late. Retells the event that she was just sitting down getting ready to smoke a cigarette when she had left-sided chest pain and felt like her heart stopped. She is talking well. No focal deficits. We will repeat troponin for clarity. Monitor patient. 0535: Repeat troponin negative. Pain has resolved and remained resolved. Mentating well and talking well. Unsure of earlier events but has complete resolution now. Patient will like to go home and I think this is safe to do so. I will send a copy of the caryn wallace to Dr. Oakley. She should follow-up this was discussed. Discharged home with return precautions. Patient verbalize understanding instructions and agreement with plan. Initial ECG Impression Date: Aug 17, 2019 Initial ECG Impression Time: 02:59 Initial ECG Rate: 89 Initial ECG Rhythm: Normal Sinus Comment Sinus rhythm with left atrial abnormality. No evidence of ST elevation MA. Unchanged from previous of 04/24/19. Interpreted by me. Diagnostic Imaging Diagonstic Imaging: Xray Plain Films/CT/US/NM/MRI: chest Comments No acute findings but hyperexpansion of the chest. Diagonstic Imaging: CT Plain Films/CT/US/NM/MRI: head Comments Negative for mass mass effect or intracranial hemorrhage. Reviewed: Reviewed [facility] Study Departure Impression Primary Impression: Chest pain Qualified Codes: R07.9 - Chest pain, unspecified Disposition: 01 HOME, SELF-CARE Condition: Improved Departure-Patient Inst. Decision time for Depature: 05:39 Referrals: IFRAH OAKLEY DO (PCP) Primary Care Physician Patient Instructions: Chest Pain (DC) Add. Discharge Instructions: All discharge instructions reviewed with patient and/or family. Voiced understanding. Continue home medications as previously prescribed. Follow-up with your DrKale in a few days for recheck and further evaluation. Return for worse pain, fever, vomiting, weakness, breathing problems or other concerns as needed. Copy Copies To 1: IFRAH OAKLEY TIMOTHY D MD Aug 17, 2019 04:04
[2019-08-17 04:18] LABS: INR 0.9 (0.8-1.4)
[2019-08-17 05:11] LABS: ACETAMINOPHEN < 10 UG/ML (10-30)
[2019-08-17 05:13] LABS: AMPHETAMINE SCREEN, URINE NEGATIVE (NEGATIVE); BARBITURATE SCREEN URINE NEGATIVE (NEGATIVE); BENZODIAZEPINES SCREEN URINE NEGATIVE (NEGATIVE); CANNABINOID SCREEN, URINE POSITIVE (NEGATIVE); COCAINE SCREEN URINE NEGATIVE (NEGATIVE); METHADONE STAT NEGATIVE (NEGATIVE); METHAMPHETAMINE SCREEN URINE S NEGATIVE (NEGATIVE); OPIATE SCREEN URINE NEGATIVE (NEGATIVE); OXYCODONE STAT NEGATIVE (NEGATIVE); PROPOXYPHENE STAT NEGATIVE (NEGATIVE); TRICYCLIC ANTIDEPRESSANTS SCRE NEGATIVE (NEGATIVE)
[2019-08-17 06:05] VITALS: BP 113/60
--- NOTE | 2019-08-17 06:48 | Diagnostic Imaging Report ---
PROCEDURE: CT head without contrast. TECHNIQUE: Multiple contiguous axial images were obtained through the brain without the use of intravenous contrast. Auto Exposure Controls were utilized during the CT exam to meet ALARA standards for radiation dose reduction. INDICATION: Altered mental status FINDINGS: Noncontrast CT scan of the head demonstrates no mass effect, midline shift, hemorrhage or extra-axial fluid collections. [place]-white matter differentiation is normal. Ventricles, cortical sulci, and basilar cisterns appear normal. Paranasal sinuses and mastoid air cells are clear. IMPRESSION: Normal CT scan of the head. Findings agree with the [facility] report. Dictated by: Dictated on workstation # [id number]
--- NOTE | 2019-08-17 08:37 | Diagnostic Imaging Report ---
EXAMINATION: Chest radiograph, portable AP view. DATE: 08/17/2019 3:14 AM. INDICATION: 39-year-old female, chest pain. COMPARISON: April 24, 2019. FINDINGS: The heart size and mediastinal contours are grossly unchanged given differences in lung volumes and imaging technique. There is no identified pneumothorax. There is no large pleural effusion. The lung volumes are low. There is associated central bronchovascular crowding. IMPRESSION: Low lung volumes with associated central bronchovascular crowding. No definite acute cardiopulmonary abnormality. Dictated by: Dictated on workstation # [id number]
== END 2019-08-17 06:11 | disposition home or self-care (01) ==
LOC: EDUNIT# 02:54 → ER 02:55
DX: R07.89 Other chest pain (principal); K21.9 Gastro-esophageal reflux disease without esophagitis; F17.210 Nicotine dependence, cigarettes, uncomplicated; Z88.8 Allergy status to other drugs, medicaments and biological substances; Z79.52 Long term (current) use of systemic steroids; Z82.49 Family history of ischemic heart disease and other diseases of the circulatory system
CPT/HCPCS: 36415; 70450; 71045; 80053; 80306; 80320; 80329; 83735; 83874; 84484; 85025; 85379; 85610; 85730; 86141; 93005; 93041

== ENCOUNTER 2019-10-29 01:36 | Emergency (ER) | payer OTHER ==
[~2019-10-29] VITALS: Ht 162.5 cm; Wt 93.0 kg
--- OUTSIDE RECORDS SUMMARY | 2019-10-29 01:42 | XMS REPORT | Clinical Summary ---
Author Author [facility] Organization [facility] Address Unknown Phone Unavailable Care Team Providers Care It Training Specialist Name Role Phone Kiara Longo MD Unavailable Cherry Rodriguez MD Unavailable No Pcp, Na PCP Unavailable Source Comments Some departments are not documenting in the electronic medical record. If you d o not see the information that you expected, contact Release of Information in [email or web address] [email or web address] Information Management department at [phone] for further assistan ce in locating additional records.[facility] Allergies Comments Active Allergy Reactions Severity Noted Date Hydromorphone (Bulk) RASH, ITCHING 03/10/2013 Vortioxetine ITCHING Low 08/05/2018 Medications End Date Status Medication Sig Dispensed Refills Start Date Active butalbital/acetaminophen/ Take 1 Tab by 0 caffeine(+) (FIORICET) mouth every 4 50/325/40 mg tablet hours as needed. Active cyclobenzaprine Take 5 mg by 0 (FLEXERIL) 5 mg tablet mouth three times daily as needed. Active meloxicam (MOBIC) 7.5 mg 0 tablet [address](+) 0 (PRILOSEC) 40 mg capsule 9 Active VITAMIN D 50,000 unit 0 capsule 9 Active CHANTIX STARTING MONTH 0 BOX 0.5 mg (11)- 1 mg 9 (42) tablet Active estradiol(+) Twice Weekly 0 (VIVELLE-DOT; ESCLIM; MACIE; ESTRADERM; VIVELLE) 0.1 mg/24 hr patch Active Problems Problem Noted Date Neck pain 08/05/2018 Chronic midline back pain 08/05/2018 Family History Medical History Relation Name Comments Seasonal Allergies Daughter COPD Father Diabetes Father Heart Failure Father Hypertension Father Stroke Father Arthritis Mother Seasonal Allergies Son Relation Name Status Comments Brother Alive Daughter Alive Father Complications of hernandez rgery and stroke (Age 62) Mother Alive Son Alive Social History Date Tobacco Use Types Packs/Day Years Used Former Smoker Cigarettes 27 Smokeless Tobacco: Former User Comments: 12-14 cigarettes per day Drinks/Week oz/Week Comments Alcohol Use Occassional Yes Sex Assigned at Date Recorded Not on file Industry Job Start Date Occupation Not on file Not on file Not on file Travel End Travel History Travel Start No recent travel history available. 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
--- OUTSIDE RECORDS SUMMARY | 2019-10-29 01:43 | XMS REPORT ---
Author Author Deon Rosy Doctor Organization [facility] Address Unknown Phone Unavailable Care Team Providers Care Disease Education Specialist Name Role Phone Migration, Doctor Unavailable Unavailable PROBLEMS Type Condition ICD9-CM Code BSV99-NQ Code Onset Dates Condition S tatus SNOMED Code Problem Routine general medical examination at [facility] y V70.0 Active 442121964 Problem Counseling on substance use and abuse V65.42 Active 178086046 Problem Need for prophylactic vaccination and inoculation, Influen za V04.81 Active 439253427 Problem STATE HEP A (ADULT) DX V05.3 Active 462871582 Problem Other malaise and fatigue 780.79 Acti ve 295110084 Problem Generalized pain 780.96 Active 829 27615 Problem Unspecified myalgia and myositis 729.1 Active 930832809 Problem Pain in soft tissues of limb 729.5 A ctive 53701281 Problem Acute pharyngitis 462 Active 36 5133611 Problem Acute sinusitis, unspecified 461.9 A ctive 61258810 Problem Asymptomatic varicose veins 454.9 Ac tive 966355257 Problem Glucocorticoid deficiency 255.41 Acti ve 517856821 Problem Tibialis tendinitis 726.72 Active 33555962 Problem Candidiasis of vulva and vagina 112.1 Active 37218314 Problem Unspecified synovitis and tenosynovitis 727.00 Active 202944257 Problem Unspecified conjunctivitis 372.30 Act negro 2700134 Problem Other chronic pain 338.29 Active 8 3105483 Problem Anxiety state, unspecified 300.00 Act negro 831205462 Problem Unspecified vitamin D deficiency 268.9 Active 68028105 ALLERGIES No Information ENCOUNTERS Encounter Location Date Diagnosis [facility] [address] [facility] [id number] [place] [id number] Jun, Dental examination Z01.20 [facility] [address] [facility] [id number] [address] [place] [address] Jun, [facility] [id number] [facility] [place] [address] 14 Sep, 2014 [facility] [id number] [place] [address] 13 Sep, 2014 [facility] [id number] [place] [address] Dec, [facility] [id number] [place] [address] Dec, [facility] [id number] [place] [address] Jun, [facility] [id number] [place] [address] Jun, [facility] [id number] [place] [address] May, [facility] [id number] [place] [address] May, [facility] [id number] [place] [address] May, [facility] [id number] [place] [address] May, [facility] [id number] [place] [address] Apr, [facility] [id number] [place] [address] Apr, [facility] [id number] [place] [address] Apr, [facility] [id number] [place] [address] Apr, [facility] [id number] [place] [address] Mar, [facility] [id number] [place] [address] Mar, [facility] [id number] [place] [address] Mar, [facility] [address] [id number] [place] [address] 16 Mar, 2013 [facility] [address] [facility] [id number] [place] [address] Mar, [facility] [id number] [place] [address] Mar, [facility] [id number] [place] [address] Mar, [facility] [address] [facility] [id number] [place] [address] Feb, [facility] [id number] [place] [address] Jan, [facility] [id number] [place] [address] Jan, [facility] [id number] [place] [address] Jan, [facility] [id number] [place] [address] Jan, [facility] [id number] [place] [address] Dec, [facility] [id number] [place] [address] Dec, [facility] [id number] [place] [address] Dec, [facility] [id number] [place] [address] Dec, [facility] [address] [facility] [id number] [place] [address] Dec, [facility] [id number] [place] [address] Nov, [facility] [id number] [place] [address] Nov, [facility] [id number] [place] [address] Nov, [facility] [id number] [place] [address] Nov, [facility] [id number] [facility] [place] [address] October, [facility] [id number] [place] [address] October, [facility] [id number] [facility] [place] [address] October, [facility] [address] [facility] [id number] [place] [address] October, [facility] [id number] [place] [address] October, [facility] [id number] [place] [address] October, [facility] [id number] [place] [address] October, [facility] [id number] [place] [address] October, [facility] [id number] [place] [address] October, [facility] [id number] [place] [address] May, [facility] [id number] [place] [address] May, [facility] [id number] [place] [address] May, [facility] [id number] [place] [address] Apr, [facility] [id number] [place] [address] Apr, [facility] [id number] [place] [address] Mar, [facility] [id number] [place] [address] Mar, [facility] [id number] [place] [address] Mar, [facility] [id number] [place] [address] Mar, [facility] [id number] [place] [address] Mar, [facility] [id number] [place] [address] Mar, [facility] [id number] [place] [address] Feb, [facility] [id number] [place] [address] Jan, [facility] [id number] [place] [address] Dec, [facility] [id number] [place] [address] Dec, [facility] [id number] [place] [address] Dec, [facility] [id number] [place] [address] Sep, [facility] [id number] [place] [address] Aug, [facility] [id number] [place] [address] Aug, [facility] [id number] [place] [address] Jul, [facility] [id number] [place] [address] Jul, [facility] [id number] [place] [address] Jul, [facility] [id number] [place] [address] Jul, [facility] [id number] [place] [address] Feb, [facility] [id number] [place] [address] May, [facility] [id number] [place] [address] October, [facility] [id number] [place] [address] 10 Jul, 2008 [facility] [id number] [place] [address] 16 Mar, 2008 IMMUNIZATIONS No Known Immunizations SOCIAL HISTORY Never Assessed REASON FOR VISIT PLAN OF CARE VITAL SIGNS MEDICATIONS Unknown Medications RESULTS No Results PROCEDURES No Known procedures INSTRUCTIONS MEDICATIONS ADMINISTERED No Known Medications
--- OUTSIDE RECORDS SUMMARY | 2019-10-29 01:43 | XMS REPORT ---
Author Author Deon Rosy Doctor Organization [facility] Address Unknown Phone Unavailable Care Team Providers Care Fleet Technician Name Role Phone Migration, Doctor Unavailable Unavailable PROBLEMS Type Condition ICD9-CM Code RNM05-SI Code Onset Dates Condition S tatus SNOMED Code Problem Routine general medical examination at [facility] y V70.0 Active 265785137 Problem Counseling on substance use and abuse V65.42 Active 023140551 Problem Need for prophylactic vaccination and inoculation, Influen za V04.81 Active 827851048 Problem STATE HEP A (ADULT) DX V05.3 Active 568054141 Problem Other malaise and fatigue 780.79 Acti ve 963353845 Problem Generalized pain 780.96 Active 829 62817 Problem Unspecified myalgia and myositis 729.1 Active 392539529 Problem Pain in soft tissues of limb 729.5 A ctive 71456004 Problem Acute pharyngitis 462 Active 36 7937128 Problem Acute sinusitis, unspecified 461.9 A ctive 71297793 Problem Asymptomatic varicose veins 454.9 Ac tive 082783459 Problem Glucocorticoid deficiency 255.41 Acti ve 663894639 Problem Tibialis tendinitis 726.72 Active 59182066 Problem Candidiasis of vulva and vagina 112.1 Active 50954429 Problem Unspecified synovitis and tenosynovitis 727.00 Active 493957534 Problem Unspecified conjunctivitis 372.30 Act negro 1055050 Problem Other chronic pain 338.29 Active 8 9980464 Problem Anxiety state, unspecified 300.00 Act negro 456538892 Problem Unspecified vitamin D deficiency 268.9 Active 91219003 ALLERGIES No Information ENCOUNTERS Encounter Location Date Diagnosis [facility] [address] [facility] [id number] [place] [id number] Jun, Dental examination Z01.20 [facility] [address] [facility] [id number] [place] [address] Jun, [facility] [address] [id number] [address] [place] [address], [place] [address] 14 Sep, 2014 [facility] [address] [id number] [address] [place] [address], [place] [address] 13 Sep, 2014 [facility] [address] [id number] [address] [place] [address], [place] [address] 16 Dec, 2013 [facility] [address] [id number] [address] [place] [address], [place] [address] Dec, [facility] [address] [id number] [address] [place] [address], [place] [address] Jun, [facility] [address] [id number] [address] [place] [address], [place] [address] Jun, [facility] [address] [id number] [address] [place] [address], [place] [address] May, [facility] [address] [id number] [address] [place] [address], [place] [address] May, [facility] [address] [id number] [address] [place] [address], [place] [address] May, [facility] [address] [id number] [address] [place] [address], [place] [address] May, [facility] [address] [id number] [address] [place] [address], [place] [address] Apr, [facility] [address] [id number] [address] [place] [address], [place] [address] Apr, [facility] [address] [id number] [address] [place] [address], [place] [address] Apr, [facility] [address] [id number] [address] [place] [address], [place] [address] Apr, [facility] [address] [id number] [address] [place] [address], [place] [address] Mar, [facility] [address] [id number] [address] [place] [address], [place] [address] Mar, [facility] [address] [id number] [address] [place] [address], [place] [address] 16 Mar, 2013 [facility] [address] [id number] [address] [place] [address], [place] [address] 16 Mar, 2013 [facility] [address] [id number] [address] [place] [address], [place] [address] Mar, [facility] [address] [id number] [address] [place] [address], [place] [address] Mar, [facility] [address] [id number] [address] [place] [address], [place] [address] Mar, [facility] [address] [id number] [address] [place] [address], [place] [address] Feb, [facility] [address] [id number] [address] [place] [address], [place] [address] Jan, [facility] [address] [id number] [address] [place] [address], [place] [address] Jan, [facility] [address] [id number] [address] [place] [address], [place] [address] Jan, [facility] [address] [id number] [address] [place] [address], [place] [address] Jan, [facility] [address] [id number] [address] [place] [address], [place] [address] Dec, [facility] [address] [id number] [address] [place] [address], [place] [address] Dec, [facility] [address] [id number] [address] [place] [address], [place] [address] Dec, [facility] [address] [id number] [address] [place] [address], [place] [address] Dec, [facility] [address] [id number] [address] [place] [address], [place] [address] Dec, [facility] [address] [id number] [address] [place] [address], [place] [address] Nov, [facility] [address] [id number] [address] [place] [address], [place] [address] Nov, [facility] [address] [id number] [address] [place] [address], [place] [address] Nov, [facility] [address] [id number] [address] [place] [address], [place] [address] Nov, [facility] [address] [id number] [address] [place] [address], [place] [address] October, [facility] [address] [id number] [address] [place] [address], [place] [address] October, [facility] [address] [id number] [address] [place] [address], [place] [address] October, [facility] [address] [id number] [address] [place] [address], [place] [address] October, [facility] [address] [id number] [address] [place] [address], [place] [address] October, [facility] [address] [id number] [address] [place] [address], [place] [address] October, [facility] [address] [id number] [address] [place] [address], [place] [address] October, [facility] [address] [id number] [address] [place] [address], [place] [address] October, [facility] [address] [id number] [address] [place] [address], [place] [address] October, [facility] [address] [id number] [address] [place] [address], [place] [address] May, [facility] [address] [id number] [address] [place] [address], [place] [address] May, [facility] [address] [id number] [address] [place] [address], [place] [address] May, [facility] [address] [id number] [address] [place] [address], [place] [address] Apr, [facility] [address] [id number] [address] [place] [address], [place] [address] Apr, [facility] [address] [id number] [address] [place] [address], [place] [address] Mar, [facility] [address] [id number] [address] [place] [address], [place] [address] Mar, [facility] [address] [id number] [address] [place] [address], [place] [address] Mar, [facility] [address] [id number] [address] [place] [address], [place] [address] Mar, [facility] [address] [id number] [address] [place] [address], [place] [address] Mar, [facility] [address] [id number] [address] [place] [address], [place] [address] Mar, [facility] [address] [id number] [address] [place] [address], [place] [address] Feb, [facility] [address] [id number] [address] [place] [address], [place] [address] Jan, [facility] [address] [id number] [address] [place] [address], [place] [address] Dec, [facility] [address] [id number] [address] [place] [address], [place] [address] Dec, [facility] [address] [id number] [address] [place] [address], [place] [address] Dec, [facility] [address] [id number] [address] [place] [address], [place] [address] Sep, [facility] [address] [id number] [address] [place] [address], [place] [address] Aug, [facility] [address] [id number] [address] [place] [address], [place] [address] Aug, [facility] [address] [id number] [address] [place] [address] Jul, [facility] [address] [id number] [address] [place] [address] Jul, [facility] [address] [facility] [id number] [address] [place] [address] Jul, [facility] [address] [id number] [address] [place] [address] Jul, [facility] [address] [facility] [id number] [address] [place] [address] Feb, [facility] [address] [facility] [id number] [address] [place] [address] May, [facility] [address] [facility] [id number] [address] [place] [address] October, [facility] [address] [facility] [id number] [address] [place] [address] Jul, [facility] [address] [facility] [id number] [address] [place] [address] Mar, IMMUNIZATIONS No Known Immunizations SOCIAL HISTORY Never Assessed REASON FOR VISIT PLAN OF CARE VITAL SIGNS MEDICATIONS Unknown Medications RESULTS No Results PROCEDURES No Known procedures INSTRUCTIONS MEDICATIONS ADMINISTERED No Known Medications
--- OUTSIDE RECORDS SUMMARY | 2019-10-29 01:43 | XMS REPORT ---
Author Author Deon Rosy Doctor Organization [facility] Address Unknown Phone Unavailable Care Team Providers Care Color Mixer Name Role Phone Migration, Doctor Unavailable Unavailable PROBLEMS Type Condition ICD9-CM Code XWV50-OO Code Onset Dates Condition S tatus SNOMED Code Problem Routine general medical examination at [facility] y V70.0 Active 759170264 Problem Counseling on substance use and abuse V65.42 Active 944743091 Problem Need for prophylactic vaccination and inoculation, Influen za V04.81 Active 827640982 Problem STATE HEP A (ADULT) DX V05.3 Active 193196447 Problem Other malaise and fatigue 780.79 Acti ve 093700857 Problem Generalized pain 780.96 Active 829 96765 Problem Unspecified myalgia and myositis 729.1 Active 176429131 Problem Pain in soft tissues of limb 729.5 A ctive 50153955 Problem Acute pharyngitis 462 Active 36 6181904 Problem Acute sinusitis, unspecified 461.9 A ctive 55554351 Problem Asymptomatic varicose veins 454.9 Ac tive 899920101 Problem Glucocorticoid deficiency 255.41 Acti ve 476619345 Problem Tibialis tendinitis 726.72 Active 65647250 Problem Candidiasis of vulva and vagina 112.1 Active 33801944 Problem Unspecified synovitis and tenosynovitis 727.00 Active 839553124 Problem Unspecified conjunctivitis 372.30 Act negro 5304982 Problem Other chronic pain 338.29 Active 8 3552351 Problem Anxiety state, unspecified 300.00 Act negro 050898780 Problem Unspecified vitamin D deficiency 268.9 Active 60502172 ALLERGIES No Information ENCOUNTERS Encounter Location Date Diagnosis [facility] [address] [facility] [id number] [place] [id number] Jun, Dental examination Z01.20 [facility] [address] [facility] [id number] [address], [place] [address] Jun, [facility] [address] [id number] [address] [place] [address], [place] [address] 14 Sep, 2014 [facility] [address] [id number] [address] [place] [address], [place] [address] 13 Sep, 2014 [facility] [address] [id number] [address] [place] [address], [place] [address] 16 Dec, 2013 [facility] [address] [id number] [address] [place] [address], [place] [address] Dec, [facility] [address] [id number] [address] [place] [address], [place] [address] Jun, [facility] [address] [id number] [address] [place] [address], [place] [address] Jun, [facility] [address] [id number] [address] [place] [address], [place] [address] May, [facility] [address] [id number] [address] [place] [address], [place] [address] May, [facility] [address] [id number] [address] [place] [address], [place] [address] May, [facility] [address] [id number] [address] [place] [address], [place] [address] May, [facility] [address] [id number] [address] [place] [address], [place] [address] Apr, [facility] [address] [id number] [address] [place] [address], [place] [address] Apr, [facility] [address] [id number] [address] [place] [address], [place] [address] Apr, [facility] [address] [id number] [address] [place] [address], [place] [address] Apr, [facility] [address] [id number] [address] [place] [address], [place] [address] Mar, [facility] [address] [id number] [address] [place] [address], [place] [address] Mar, [facility] [address] [id number] [address] [place] [address], [place] [address] 16 Mar, 2013 [facility] [address] [id number] [address] [place] [address], [place] [address] 16 Mar, 2013 [facility] [address] [id number] [address] [place] [address], [place] [address] Mar, [facility] [address] [id number] [address] [place] [address], [place] [address] Mar, [facility] [address] [id number] [address] [place] [address], [place] [address] Mar, [facility] [address] [id number] [address] [place] [address], [place] [address] Feb, [facility] [address] [id number] [address] [place] [address], [place] [address] Jan, [facility] [address] [id number] [address] [place] [address], [place] [address] Jan, [facility] [address] [id number] [address] [place] [address], [place] [address] Jan, [facility] [address] [id number] [address] [place] [address], [place] [address] Jan, [facility] [address] [id number] [address] [place] [address], [place] [address] Dec, [facility] [address] [id number] [address] [place] [address], [place] [address] Dec, [facility] [address] [id number] [address] [place] [address], [place] [address] Dec, [facility] [address] [id number] [address] [place] [address], [place] [address] Dec, [facility] [address] [id number] [address] [place] [address], [place] [address] Dec, [facility] [address] [id number] [address] [place] [address], [place] [address] Nov, [facility] [address] [id number] [address] [place] [address], [place] [address] Nov, [facility] [address] [id number] [address] [place] [address], [place] [address] Nov, [facility] [address] [id number] [address] [place] [address], [place] [address] Nov, [facility] [address] [id number] [address] [place] [address], [place] [address] October, [facility] [address] [id number] [address] [place] [address], [place] [address] October, [facility] [address] [id number] [address] [place] [address], [place] [address] October, [facility] [address] [id number] [address] [place] [address], [place] [address] October, [facility] [address] [id number] [address] [place] [address], [place] [address] October, [facility] [address] [id number] [address] [place] [address], [place] [address] October, [facility] [address] [id number] [address] [place] [address], [place] [address] October, [facility] [address] [id number] [address] [place] [address], [place] [address] October, [facility] [address] [id number] [address] [place] [address], [place] [address] October, [facility] [address] [id number] [address] [place] [address], [place] [address] May, [facility] [address] [id number] [address] [place] [address], [place] [address] May, [facility] [address] [id number] [address] [place] [address], [place] [address] May, [facility] [address] [id number] [address] [place] [address], [place] [address] Apr, [facility] [address] [id number] [address] [place] [address], [place] [address] Apr, [facility] [address] [id number] [address] [place] [address], [place] [address] Mar, [facility] [address] [id number] [address] [place] [address], [place] [address] Mar, [facility] [address] [id number] [address] [place] [address], [place] [address] Mar, [facility] [address] [id number] [address] [place] [address], [place] [address] Mar, [facility] [address] [id number] [address] [place] [address], [place] [address] Mar, [facility] [address] [id number] [address] [place] [address], [place] [address] Mar, [facility] [address] [id number] [address] [place] [address], [place] [address] Feb, [facility] [address] [id number] [address] [place] [address], [place] [address] Jan, [facility] [address] [id number] [address] [place] [address], [place] [address] Dec, [facility] [address] [id number] [address] [place] [address], [place] [address] Dec, [facility] [address] [id number] [address] [place] [address], [place] [address] Dec, [facility] [address] [id number] [address] [place] [address], [place] [address] Sep, [facility] [address] [id number] [address] [place] [address], [place] [address] Aug, [facility] [address] [id number] [address] [place] [address], [place] [address] Aug, [facility] [address] [id number] [address] [place] [address] Jul, [facility] [address] [id number] [address] [place] [address] Jul, [facility] [address] [facility] [id number] [address] [place] [address] Jul, [facility] [address] [id number] [address] [place] [address] Jul, [facility] [address] [facility] [id number] [address] [place] [address] Feb, [facility] [address] [facility] [id number] [address] [place] [address] May, [facility] [address] [facility] [id number] [address] [place] [address] October, [facility] [address] [facility] [id number] [address] [place] [address] Jul, [facility] [address] [facility] [id number] [address] [place] [address] Mar, IMMUNIZATIONS No Known Immunizations SOCIAL HISTORY Never Assessed REASON FOR VISIT PLAN OF CARE VITAL SIGNS MEDICATIONS Unknown Medications RESULTS No Results PROCEDURES No Known procedures INSTRUCTIONS MEDICATIONS ADMINISTERED No Known Medications
--- OUTSIDE RECORDS SUMMARY | 2019-10-29 01:43 | XMS REPORT ---
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 [facility] [employer] [facility] [place] Address [address] [address] Care Team Providers Care It Training Specialist Name Role Phone IFRAH TORRES Adi Unavailable [facility] Unavailable Migration, Doctor Unavailable Unavailable Migration, Doctor Unavailable Unavailable Migration, Doctor Unavailable Unavailable Migration, Doctor Unavailable Unavailable Migration, Doctor Unavailable Unavailable Migration, Doctor Unavailable Unavailable Migration, Doctor Unavailable Unavailable Migration, Doctor Unavailable Unavailable Migration, Doctor Unavailable Unavailable Migration, Doctor Unavailable Unavailable Migration, Doctor Unavailable Unavailable Migration, Doctor Unavailable Unavailable Migration, Doctor Unavailable Unavailable Migration, Doctor Unavailable Unavailable JON HATCH Unavailable Migration, Doctor Unavailable Unavailable Migration, Doctor Unavailable Unavailable Migration, Doctor Unavailable Unavailable Allergies The data below is from unstructured sources No Information No Information No Information No Information No Information No Information No Information No Information No Information No Information No Information No Information No Information No Information No Information No Information No Information No Information No Information No Information No Information No Information No Information No Information No Information Medications Medication Ingredient Drug Dose Dates Status Sig Sig Care Class(es) (Normalized) (Original) Provid er amoxicillin Amoxicillin Penicillin- 500 mg 09-24-19 Active take 1 Amoxicillin no 500 mg oral Translation class 12 capsule by 500 mg take name capsule (1 s: [ Antibacteri mouth every 1 capsule source.) Amoxicillin al eight hours (500 mg) by 500 mg] oral route every 8 hours for 10 days Sep, Active amoxicillin Amoxicillin Penicillin- 08-10-19 Active take 1 Augme ntin no 875 mg / / class 12 tablet by 875-125 mg 1 name clavulanate Clavulanate Antibacteri mouth twice tablet by 125 mg oral Translation al daily Oral route 2 tablet (1 s: [ times per source.) Augmentin day for 10 875-125 mg] day(s) Jul, Active codeine Codeine / Opioid 08-10-19 Active take 5 mL by Promethazi ne no phosphate 2 Promethazin Agonist, 12 mouth every -Codeine name mg/ml / e Phenothiazi four hours 6.25-10 mg/ 5 promethazin Translation ne mL 5 mL by e s: [ Oral route hydrochlori Promethazin every 4 de 1.25 e-Codeine hours for 5 mg/ml oral 6.25-10 day(s) 24 solution (1 mg/5 mL] Jul, 2011 source.) Active tiZANidine tiZANidine Central 4 mg 06-19-19 Active take 1 tiza nidine 4 no 4 mg oral Translation alpha-2 14 tablet by mg 1 tablet n estuardo tablet (1 s: [ Adrenergic mouth once by Oral source.) tizanidine Agonist at bedtime route 1 time 4 mg] per day Q hs Jun, Active no Vitamin D3 no 2000 03-19-20 Active take 1 Vitamin D 3 no information 2,000 unit information [IU] 13 capsule by 2,000 unit 1 name (1 source.) mouth once capsule by daily Oral route 1 time per day Mar, Active Problems Problem Normalized Date Last Normalized Normalized Provider Fa cility Classification Problem(s) Recorded Problem Problem Sta tus Duration Other upper Acute Episodic Active Doctor Community respiratory pharyngitis [facility] infections (20 Translations: of [facility] sources.) [ Acute [place] ([address]) pharyngitis, Acute sinusitis, unspecified, Acute sinusitis, unspecified] 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 (18 hypofunction of [facility] sources.) Translations: [place] ([address]) [ Glucocorticoid deficiency] Anxiety Anxiety state Chronic Active Doctor Communit y disorders (18 Translations: [facility] sources.) [ Anxiety of [facility] state, [place] ([address]) unspecified] Mycoses (18 Candidal Episodic Active Doctor Community sources.) vulvovaginitis [facility] r Translations: of [facility] [ Candidiasis [place] ([address]) of vulva and vagina] Residual Chronic pain Chronic Active Doctor Community codes; Translations: [facility] unclassified [ Other of [facility] (15 sources.) chronic pain] [place] ([address]) Residual Chronic pain Episodic Active Doctor Community codes; Translations: [facility] unclassified [ Other of [facility] (3 sources.) chronic pain] [place] ([address]) Inflammation; Conjunctivitis Episodic Active Doctor Com munity infection of Translations: [facility] eye (except [ Unspecified of [facility] that caused by conjunctivitis [place] ([address]) tuberculosis ] or sexually transmitteddis ease) (18 sources.) Residual Generalized Episodic Active Doctor Community codes; aches and [facility] unclassified pains of [facility] (18 sources.) Translations: [place] ([address]27) [ Generalized pain] Malaise and Malaise and Episodic Active Doctor Communit y fatigue (18 fatigue [facility] sources.) Translations: of [facility] [ Other [place] ([address]70) malaise and fatigue] Other Myalgia/myosit Episodic Active [facility] is - multiple [facility] tissue disease Translations: of [facility] (18 sources.) [ Unspecified [place] (23081) myalgia and myositis] Residual Needs Episodic Active Doctor Community codes; influenza [facility] unclassified immunization of [facility] (18 sources.) Translations: [place] ([address]) [ Need for prophylactic vaccination and inoculation, Influenza] Other Pain in limb Episodic Active Doctor Community connective Translations: [facility] tissue disease [ Pain in soft of [facility] (18 sources.) tissues of [place] (84764) limb] Other Synovitis and Episodic Active Doctor Communit y connective tenosynovitis [facility] tissue disease Translations: of [facility] (18 sources.) [ Unspecified [place] ([address]146) synovitis and tenosynovitis] Other Tibialis Episodic Active Doctor Community connective tendinitis [facility] tissue disease Translations: of [facility] (18 sources.) [ Tibialis [place] ([address]) tendinitis] Varicose veins Venous varices Episodic Active Doctor Co mmunity of lower Translations: [facility] extremity (18 [ Asymptomatic of [place] sources.) varicose [place] ([address]1747) veins] Nutritional Vitamin D Chronic Active Doctor Community deficiencies deficiency [facility] (18 sources.) Translations: of [facility] [ Unspecified [place] ([address]) vitamin D deficiency] Procedures Procedure Normalized Procedure Procedure Result Performer Facility Date General examination of no information no name [facility] ([address]) Infective hepatitis no information no name [facility] immunization Center [facility] ([address]) Substance abuse no information no name [facility] ([address]) Immunizations Normalized Immunization Date Notes Care Provider Facili ty Immunization hepatitis A vaccine, no information Doctor Migration [facility] ([address]) Translations: [ STATE HEP A (ADULT) DX] Results The data below is from unstructured sourcesNo Known Relevant Diagnostic Tests, Laboratory Data and/or Discharge Summary. No Results No Results No Results No Results No Results No Results No Results No Results No Results No Results No Results No Results No Results No Results No Results No Results No Results No Results No Results No Results No Results No Results No Results No Results No Results No Results Vital Signs The data below is from unstructured sources Vital Response Date/Time Temperature (Fahrenheit) 98.2 degree s F (97.6 - 99.5) Temperature (Calculated Celsius) 36. 90521 degrees C (36.4 - 37.5) Temperature Source Temporal Pulse Rate (adult) 63 bpm (60 - 90) Respiratory Rate 18 bpm (12 - 24) O2 Sat by Pulse Oximetry 100 % (88 - 100) Blood Pressure 120/77 mm Hg Pain Pain Intensity 4 Height (Feet) 5 feet Height (Inches) 4 inches Height (Calculated Centimeters) 162. 832256 cm Weight (Pounds) 180 pounds Weight (Calculated Kilograms) 81.646 627 kilograms Calculated BMI 30.89 Interventions No Information Plan of Treatment The data below is from unstructured sourcesNo plan of care. Goals No Information Social History The data below is from unstructured sources History Response Recorde d Date/Time Alcohol Use Occasionally Uses 11/03/12 11:49pm Recreational Drug Use N 11/03/12 11:49pm Functional Status The data below is from unstructured sourcesNo functional status results. Mental Status No Information Encounters Encounter Normalized Encounter Encounter Diagnosis Care Provi ginger Organization Date Type 07-11-2018 (D-PAIN/REJI) Pain/REJI Encounter for dental SINDHU CHAPPELL (no [facility] - examination and phone) DENTAL (no justo ne) 07-11-2018 cleaning without - abnormal findings 07-11-2018 12-30-2013 [facility] no information JON HATCH (no [facility] - phone) Doctor (no phone) 12-30-2013 Migration (no phone) - 12-30-2013 06-19-2013 [facility] no information Doctor Migrati on ([facility] - phone) (no phone) 06-19-2013 - 06-19-2013 06-16-2013 [facility] no information Doctor Migrati on (no [facility] - phone) (no phone) 06-16-2013 - 06-16-2013 05-25-2013 [facility] no information Doctor Migrati on (no [facility] - phone) (no phone) 05-25-2013 - 05-25-2013 05-15-2013 [facility] no information Doctor Migrati on (no [facility] - phone) (no phone) 05-15-2013 - 05-15-2013 04-17-2013 [facility] no information Doctor Migrati on (no [facility] - phone) (no phone) 04-17-2013 - 04-17-2013 04-03-2013 [facility] no information Doctor Migrati on (no [facility] - phone) (no phone) 04-03-2013 - 04-03-2013 04-01-2013 [facility] no information Doctor Migrati on (no [facility] - phone) (no phone) 04-01-2013 - 04-01-2013 03-20-2013 [facility] no information JON HATCH (no [facility] - phone) (no phone) 03-20-2013 - 03-20-2013 03-19-2013 [facility] no information Doctor Migrati on (no [facility] - phone) (no phone) 03-19-2013 - 03-19-2013 02-13-2013 [facility] no information Doctor Migrati on (no [facility] - phone) (no phone) 02-13-2013 - 02-13-2013 01-29-2013 [facility] no information Doctor Migrati on (no [facility] - phone) (no phone) 01-29-2013 - 01-29-2013 12-25-2012 [facility] no information Doctor Migrati on (no [facility] - phone) (no phone) 12-25-2012 - 12-25-2012 12-24-2012 [facility] no information Doctor Migrati on (no [facility] - phone) (no phone) 12-24-2012 - 12-24-2012 12-22-2012 [facility] no information Doctor Migrati on (no [facility] - phone) (no phone) 12-22-2012 - 12-22-2012 12-03-2012 [facility] no information Doctor Migrati on (no [facility] - phone) (no phone) 12-03-2012 - 12-03-2012 11-25-2012 [facility] no information Doctor Migrati on (no [facility] - phone) (no phone) 11-25-2012 - 11-25-2012 11-17-2012 [facility] no information Doctor Migrati on (no [facility] - phone) (no phone) 11-17-2012 - 11-17-2012 11-11-2012 [facility] no information Doctor Migrati on (no [facility] - phone) (no phone) 11-11-2012 - 11-11-2012 11-07-2012 [facility] no information Doctor Migrati on (no [facility] - phone) (no phone) 11-07-2012 - 11-07-2012 11-03-2012 [facility] no information Doctor Migrati on (no [facility] - phone) (no phone) 11-03-2012 - 11-03-2012 10-31-2012 [facility] no information Doctor Migrati on (no [facility] - phone) (no phone) 10-31-2012 - 10-31-2012 06-05-2012 [facility] no information PEGGY EDUARDO ( no [facility] - phone) Doctor (no phone) 06-05-2012 Migration (no phone) - 06-05-2012 04-18-2012 [facility] no information Doctor Migrati on (no [facility] - phone) (no phone) 04-18-2012 - 04-18-2012 04-09-2012 [facility] no information Doctor Migrati on (no [facility] - phone) (no phone) 04-09-2012 - 04-09-2012 04-08-2012 [facility] no information Doctor Migrati on (no [facility] - phone) (no phone) 04-08-2012 - 04-08-2012 02-22-2012 [facility] no information Doctor Migrati on (no [facility] - phone) (no phone) 02-22-2012 - 02-22-2012 2012 [facility] no information PEGGY CLARK ( no [facility] - [facility]) (no phone) 2012 - 2012 01-09-2012 [facility] no information PEGGY CLARK ( no [facility] - phone) ANDRY RO (no phone) 01-09-2012 (no phone) - 01-09-2012 01-01-2012 [facility] no information PEGGY CLARK ( no [facility] - phone) (no phone) 01-01-2012 - 01-01-2012 09-24-2011 [facility] no information PEGGY CLARK ( no [facility] - phone) (no phone) 09-24-2011 - 09-24-2011 09-03-2011 [facility] no information Doctor Migrati on ([facility] phone) (no phone) 09-03-2011 - 09-03-2011 08-10-2011 [facility] no information Doctor Migrati on (no [facility] - phone) (no phone) 08-10-2011 - 08-10-2011 08-06-2011 [facility] no information Doctor Migrati on (no [facility] - phone) (no phone) 08-06-2011 - 08-06-2011 05-23-2010 [facility] no information Doctor Migrati on (no [facility] - phone) (no phone) 05-23-2010 - 05-23-2010 04-01-2008 [facility] no information Doctor Migrati on (no [facility] - phone) (no phone) 04-01-2008 - 04-01-2008 07-07-2018 Telephone encounter no information PEGGY EDUARDO ([facility] - phone) CARE (no phone) 07-07-2018 - 07-07-2018 09-28-2014 Telephone encounter no information Doctor Migration (no [facility] - phone) (no phone) 09-28-2014 - 09-28-2014 09-27-2014 Telephone encounter no information Doctor Migration (no [facility] - phone) (no phone) 09-27-2014 - 09-27-2014 03-18-2013 Telephone encounter no information Doctor Migration (no [facility] - phone) (no phone) 03-18-2013 - 03-18-2013 03-06-2013 Telephone encounter no information Doctor Migration (no [facility] - phone) (no phone) 03-06-2013 - 03-06-2013 02-09-2013 Telephone encounter no information Doctor Migration (no [facility] - phone) (no phone) 02-09-2013 - 02-09-2013 12-23-2012 Telephone encounter [facility] information [facility] 12-23-2012 - 12-23-2012 11-26-2012 Telephone encounter no information Doctor Migration (no [facility] - phone) (no phone) 11-26-2012 - 11-26-2012 11-13-2012 Telephone encounter no information Doctor Migration [facility] ([facility]) 11-13-2012 - 11-13-2012 11-12-2012 Telephone encounter no information Doctor Migration [facility] (no phone) 11-12-2012 - 11-12-2012 11-04-2012 Telephone encounter no information Doctor Migration [facility] (no phone) 11-04-2012 - 11-04-2012 11-01-2012 Telephone encounter no information Doctor Migration (no [facility] - phone) (no phone) 11-01-2012 - 11-01-2012 06-04-2012 Telephone encounter no information Doctor Migration (no [facility] - phone) (no phone) 06-04-2012 - 06-04-2012 08-09-2011 Telephone encounter no information Doctor Migration (no [facility] - phone) (no phone) 08-09-2011 - 08-09-2011 02-26-2011 Telephone encounter no information Doctor Migration (no [facility] - phone) (no phone) 02-26-2011 - 02-26-2011 10-28-2009 Telephone encounter no information Doctor Migration (no [facility] - phone) (no phone) 10-28-2009 - 10-28-2009 07-27-2008 Telephone encounter no information Doctor Migration (no [facility] - phone) (no phone) 07-27-2008 - 07-27-2008 no information Encounter for dental no name no organi zation name examination and cleaning without abnormal findings Medical Equipment No Information Payers The data below is from unstructured sources Payer Name Policy Number Subscriber Name Relationship [facility] [id number] Rosy Hutchinson 01 Self / Same As Patient Advance Directives Directive Response Recor ded Date/Time Advance Directives No 2:40am Health Care Power of Band Edger No 12/10/14 2:40am Organ Donor No 12/10/14 2:40am Resuscitation Status Full Code 12/10/14 2:40am Directive Response Recor ded Date Advance Directives N 11:49pm Discharge Instructions No hospital discharge instructions. Additional Source Comments This clinical document has been generated using ffk environment software that has been certified by the Office of the National Coordinator for Health Information Technology (ONC 15.99.04.3023.[id number]) and the National Committee for [employer] (NCQA, as an eMeasure certified technology). FOR RECORDS PERTAINING TO PATIENTS WHO ARE OR HAVE BEEN ENROLLED IN A CHEMICAL D EPENDENCY/SUBSTANCE ABUSE PROGRAM, SOME INFORMATION MAY BE OMITTED. This clinica l summary was aggregated from multiple sources. Caution should be exercised in using it in the provision of clinical care. This summary normalizes information from multiple sources, and as a consequence, information in this document may ma terially change the coding, format and clinical context of patient data. In shanika tion, data may be omitted in some cases. CLINICAL DECISIONS SHOULD BE BASED ON T HE PRIMARY CLINICAL RECORDS. [facility]. provides no warranty or guara ntee of the accuracy or completeness of information in this document.The followi information is based on time limited clinical information UNRECOGNIZED CONTENT PROVIDED BELOW FOR UNRECOGNIZED SECTION REASON FOR VISIT [id number] -[id number]
[2019-10-29 01:44] VITALS: BP 131/88
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
[2019-10-29] MEDS ORDERED: HYDR-83 PO (01:57)
[2019-10-29] MEDS ORDERED: CYCL10TA9 PO (01:57)
[2019-10-29] MEDS ORDERED: CYCLOBENZAPRINE 10 MG (FLEXERIL) TAB PO SCH (02:00)
[2019-10-29] MEDS ORDERED: HYDROcodone/APAP 5 MG/325 MG (LORTAB) TAB PO ONE (02:00)
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
== END 2019-10-29 02:25 | disposition home or self-care (01) ==
LOC: EDUNIT# 01:36 → ER FS 01:38
DX: S16.1XXA Strain of muscle, fascia and tendon at neck level, initial encounter (principal); M62.830 Muscle spasm of back; K21.9 Gastro-esophageal reflux disease without esophagitis; Z88.8 Allergy status to other drugs, medicaments and biological substances; Z79.52 Long term (current) use of systemic steroids; Z82.49 Family history of ischemic heart disease and other diseases of the circulatory system; V40.5XXA Car driver injured in collision with pedestrian or animal in traffic accident, initial encounter
CPT/HCPCS: 71045; 72040

== ENCOUNTER → 2019-11-03 | Outpatient (CLI) | payer OTHER ==
[~2019-11-03] MED LIST changes: +CYCL10TA9 PO; +HYDR-83 PO
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
== END ==
LOC: RAD 09:56
PROVIDERS: ATTEND Nurse Practitioner Family
DX: R51 Headache (principal); M54.9 Dorsalgia, unspecified; R07.81 Pleurodynia; M53.3 Sacrococcygeal disorders, not elsewhere classified; M25.511 Pain in right shoulder; V89.2XXA Person injured in unspecified motor-vehicle accident, traffic, initial encounter
CPT/HCPCS: 70450; 71100; 72072; 72100; 72202; 73010

== ENCOUNTER → 2019-11-05 | Outpatient (CLI) | payer OTHER ==
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
== END ==
LOC: RAD 12:11
PROVIDERS: ATTEND Family Medicine
DX: M47.812 Spondylosis without myelopathy or radiculopathy, cervical region (principal)
CPT/HCPCS: 72141

== ENCOUNTER 2019-11-19 14:29 | Outpatient (RCR) | payer OTHER ==
[~2019-11-19] VITALS: Ht 160 cm; Wt 92.7 kg
[2019-11-19] MEDS ORDERED: TIZA4TAB4 PO (15:41)
[2019-11-19] MEDS ORDERED: ERGO50006 PO (16:00)
[2019-11-19] MEDS ORDERED: TOPI25TA10 PO (16:00)
[2019-11-19] MEDS ORDERED: DICL75TA2 PO (16:00)
[2019-11-19] MEDS ORDERED: CETI10TA17 PO (16:00)
[2019-11-19] MEDS ORDERED: PREG150C46 PO (16:00)
== END 2019-11-19 16:00 | disposition home or self-care (01) ==
LOC: PREOP 14:29
PROVIDERS: ATTEND Surgery
DX: Z01.818 Encounter for other preprocedural examination (principal)

== ENCOUNTER → 2019-11-23 | Outpatient (CLI) | payer OTHER ==
[~2019-11-23] MED LIST changes: +CETI10TA17 PO; +DICL75TA2 PO; +PREG150C46 PO; +TIZA4TAB4 PO; +TOPI25TA10 PO
--- NOTE | 2019-11-23 08:50 | Diagnostic Imaging Report ---
PROCEDURE: US Gallbladder. TECHNIQUE: Multiple real-time grayscale images were obtained over the right upper quadrant in various projections. INDICATION: Generalized abdominal pain. Liver is normal in size at 15.4 cm. No discrete liver mass is detected. The portal vein is patent and shows normal direction of flow. The gallbladder appears to contain a small amount of sludge. No stones are seen. No significant wall thickening or biliary duct dilatation is identified. The pancreas is obscured by bowel gas. Aorta is nonaneurysmal. IVC is patent. The right kidney is without calculi or hydronephrosis. There is no ascites. IMPRESSION: Minimal gallbladder sludge. There is no evidence of cholelithiasis or acute cholecystitis. Dictated by: Dictated on workstation # [id number]
== END ==
LOC: RAD 06:52
PROVIDERS: ATTEND Surgery
DX: R10.84 Generalized abdominal pain (principal)
CPT/HCPCS: 76705

== ENCOUNTER 2019-11-24 11:07 | Day surgery (SDC) | payer OTHER ==
[~2019-11-24] VITALS: Ht 160 cm; Wt 92.7 kg
[2019-11-24] MEDS ORDERED: LACTATED RINGERS 1,000 ML IV ONE (11:22)
[2019-11-24] MEDS ORDERED: LACTATED RINGERS 1,000 ML IV STA (11:23)
[2019-11-24 11:25] VITALS: BP 104/72
[2019-11-24] MEDS ORDERED: HURRICAINE EXT TUBE (BENZOCAINE) XX PRN (11:30)
[2019-11-24] MEDS ORDERED: PROPOFOL INJECTION 50 ML IV ONE (11:33)
[2019-11-24] MEDS ORDERED: MIDAZOLAM 2 MG/2 ML (VERSED) VIAL ONE (11:34)
--- NOTE | 2019-11-24 11:40 | Progress Note-Pre Operative ---
Pre-Operative Progress Note H&P Reviewed The H&P was reviewed, patient examined and no changes noted. Time Seen by Provider: 11:36 Date H&P Reviewed: Nov 24, 2019 Time H&P Reviewed: 11:37 Pre-Operative Diagnosis: Acid reflux, abd pain, change in bowel habits LENNOX CARMICHAEL DO Nov 24, 2019 11:40
[2019-11-24 12:10] VITALS: BP 101/56
[2019-11-24 12:15] VITALS: BP 104/62
--- NOTE | 2019-11-24 12:15 | Progress Note-Post Operative ---
Post-Operative Progess Note Surgeon (s)/Aircraft Worker (s) Surgeon LENNOX CARMICHAEL DO Aircraft Worker: none Pre-Operative Diagnosis Acid reflux, abd pain, change in bowel habits Post-Operative Diagnosis Gastritis, Hiatal Hernia Cecal Ulcer colon polyps hemorrhoids Procedure & Operative Findings Date of Procedure 11/24/19 Procedure Performed/Findings EGD with bx Colon with snare Colon with hot bx Anesthesia Type IV sedation by [employer] Estimated Blood Loss Estimated blood loss (mL): scant Specimens/Packing Specimens Removed antral bx, body of stomach bx, GE jxn bx Cecal bx of ulcer descending colon polyp sigmoid polyp rectal polyp Sigmoid bx LENNOX CARMICHAEL DO Nov 24, 2019 12:15
--- NOTE | 2019-11-24 12:17 | Endoscopy Discharge Instruct ---
Endo Procedure/Findings Findings 1.: Hiatal Hernia, Gastritis 2.: Other Findings (cecal ulcer) 3.: Polyp 4.: Internal Hemorrhoids Discharge Instructions - Activity: You might feel a little sleepy until tomorrow. This is due to the medicine you received to relax you. Until tomorrow, you should: NOT drive a car, operate machinery or power tools. NOT drink any alcoholic beverages. NOT make any important decisions or sign importortant papers. Do not return to work until tomorrow, unless otherwise instructed. Resume previous activities tomorrow. Diet: Start by taking liquids. If you tolerate liquids, advance to solid food. make an appointment for one week 1.: Colonoscopy in 1 year, EGD in 3 years Notify Physician - If you experience excessive bleeding, unusual abdominal pain, fever, or chest pain, contact your doctor immediately. LENNOX CARMICHAEL DO Nov 24, 2019 12:17
[2019-11-24 12:20] VITALS: BP 141/65
--- OUTSIDE RECORDS SUMMARY | 2019-11-24 12:56 | XMS REPORT ---
Author Author Deon Rosy Doctor Organization [facility] Address Unknown Phone Unavailable Care Team Providers Care Computed Tomography Scanner Operator Name Role Phone Migration, Doctor Unavailable Unavailable PROBLEMS Type Condition ICD9-CM Code GDC11-CK Code Onset Dates Condition S tatus SNOMED Code Problem Routine general medical examination at [facility] y V70.0 Active 861255632 Problem Counseling on substance use and abuse V65.42 Active 793068586 Problem Need for prophylactic vaccination and inoculation, Influen za V04.81 Active 959916790 Problem STATE HEP A (ADULT) DX V05.3 Active 919909916 Problem Other malaise and fatigue 780.79 Acti ve 875381608 Problem Generalized pain 780.96 Active 829 10365 Problem Unspecified myalgia and myositis 729.1 Active 384957684 Problem Pain in soft tissues of limb 729.5 A ctive 09421011 Problem Acute pharyngitis 462 Active 36 7794563 Problem Acute sinusitis, unspecified 461.9 A ctive 36292755 Problem Asymptomatic varicose veins 454.9 Ac tive 540075467 Problem Glucocorticoid deficiency 255.41 Acti ve 365097815 Problem Tibialis tendinitis 726.72 Active 41459229 Problem Candidiasis of vulva and vagina 112.1 Active 81707044 Problem Unspecified synovitis and tenosynovitis 727.00 Active 664188750 Problem Unspecified conjunctivitis 372.30 Act negro 2860938 Problem Other chronic pain 338.29 Active 8 8382340 Problem Anxiety state, unspecified 300.00 Act negro 752466890 Problem Unspecified vitamin D deficiency 268.9 Active 86607239 ALLERGIES No Information ENCOUNTERS Encounter Location Date Diagnosis [facility] [address] [facility] [id number] [place] [id number] Jun, Dental examination Z01.20 [facility] [address] [facility] [id number] [address] [address] Jun, [facility] [address] [id number] [address] [place] [address], [place] [address] 14 Sep, 2014 [facility] [address] [id number] [address] [place] [address], [place] [address] 13 Sep, 2014 [facility] [address] [id number] [address] [place] [address], [place] [address] 16 Dec, 2013 [facility] [address] [id number] [address] [place] [address], [place] [address] Dec, [facility] [address] [id number] [address] [place] [address], [place] [address] Jun, [facility] [address] [id number] [address] [place] [address], [place] [address] Jun, [facility] [address] [id number] [address] [place] [address], [place] [address] May, [facility] [address] [id number] [address] [place] [address], [place] [address] May, [facility] [address] [id number] [address] [place] [address], [place] [address] May, [facility] [address] [id number] [address] [place] [address], [place] [address] May, [facility] [address] [id number] [address] [place] [address], [place] [address] Apr, [facility] [address] [id number] [address] [place] [address], [place] [address] Apr, [facility] [address] [id number] [address] [place] [address], [place] [address] Apr, [facility] [address] [id number] [address] [place] [address], [place] [address] Apr, [facility] [address] [id number] [address] [place] [address], [place] [address] Mar, [facility] [address] [id number] [address] [place] [address], [place] [address] Mar, [facility] [address] [id number] [address] [place] [address], [place] [address] 16 Mar, 2013 [facility] [address] [id number] [address] [place] [address], [place] [address] 16 Mar, 2013 [facility] [address] [id number] [address] [place] [address], [place] [address] Mar, [facility] [address] [id number] [address] [place] [address], [place] [address] Mar, [facility] [address] [id number] [address] [place] [address], [place] [address] Mar, [facility] [address] [id number] [address] [place] [address], [place] [address] Feb, [facility] [address] [id number] [address] [place] [address], [place] [address] Jan, [facility] [address] [id number] [address] [place] [address], [place] [address] Jan, [facility] [address] [id number] [address] [place] [address], [place] [address] Jan, [facility] [address] [id number] [address] [place] [address], [place] [address] Jan, [facility] [address] [id number] [address] [place] [address], [place] [address] Dec, [facility] [address] [id number] [address] [place] [address], [place] [address] Dec, [facility] [address] [id number] [address] [place] [address], [place] [address] Dec, [facility] [address] [id number] [address] [place] [address], [place] [address] Dec, [facility] [address] [id number] [address] [place] [address], [place] [address] Dec, [facility] [address] [id number] [address] [place] [address], [place] [address] Nov, [facility] [address] [id number] [address] [place] [address], [place] [address] Nov, [facility] [address] [id number] [address] [place] [address], [place] [address] Nov, [facility] [address] [id number] [address] [place] [address], [place] [address] Nov, [facility] [address] [id number] [address] [place] [address], [place] [address] October, [facility] [address] [id number] [address] [place] [address], [place] [address] October, [facility] [address] [id number] [address] [place] [address], [place] [address] October, [facility] [address] [id number] [address] [place] [address], [place] [address] October, [facility] [address] [id number] [address] [place] [address], [place] [address] October, [facility] [address] [id number] [address] [place] [address], [place] [address] October, [facility] [address] [id number] [address] [place] [address], [place] [address] October, [facility] [address] [id number] [address] [place] [address], [place] [address] October, [facility] [address] [id number] [address] [place] [address], [place] [address] October, [facility] [address] [id number] [address] [place] [address], [place] [address] May, [facility] [address] [id number] [address] [place] [address], [place] [address] May, [facility] [address] [id number] [address] [place] [address], [place] [address] May, [facility] [address] [id number] [address] [place] [address], [place] [address] Apr, [facility] [address] [id number] [address] [place] [address], [place] [address] Apr, [facility] [address] [id number] [address] [place] [address], [place] [address] Mar, [facility] [address] [id number] [address] [place] [address], [place] [address] Mar, [facility] [address] [id number] [address] [place] [address], [place] [address] Mar, [facility] [address] [id number] [address] [place] [address], [place] [address] Mar, [facility] [address] [id number] [address] [place] [address], [place] [address] Mar, [facility] [address] [id number] [address] [place] [address], [place] [address] Mar, [facility] [address] [id number] [address] [place] [address], [place] [address] Feb, [facility] [address] [id number] [address] [place] [address], [place] [address] Jan, [facility] [address] [id number] [address] [place] [address], [place] [address] Dec, [facility] [address] [id number] [address] [place] [address], [place] [address] Dec, [facility] [address] [id number] [address] [place] [address], [place] [address] Dec, [facility] [address] [id number] [address] [place] [address], [place] [address] Sep, [facility] [address] [id number] [address] [place] [address], [place] [address] Aug, [facility] [address] [id number] [address] [place] [address], [place] [address] Aug, [facility] [address] [id number] [address] [place] [address] Jul, [facility] [address] [id number] [address] [place] [address] Jul, [facility] [address] [id number] [address] [place] [address] Jul, [facility] [address] [id number] [address] [place] [address] Jul, [facility] [address] [id number] [address] [place] [id number] Feb, [facility] [address] [id number] [address] [place] [address] May, [facility] [address] [id number] [address] [place] [address] October, [facility] [address] [id number] [address] [place] [id number] Jul, [facility] [address] [id number] [address] [place] [address] Mar, IMMUNIZATIONS No Known Immunizations SOCIAL HISTORY Never Assessed REASON FOR VISIT PLAN OF CARE VITAL SIGNS Height 64 in 2013-01-29 Weight 187.17 lbs 2013-01-29 Temperature 97.9 degrees Fahrenheit 2013-01-29 Heart Rate 84 bpm 2013-01-29 Respiratory Rate 24 2013-01-29 Blood pressure systolic 96 mmHg 2013-01-29 Blood pressure diastolic 74 mmHg 2013-01-29 MEDICATIONS Unknown Medications RESULTS No Results PROCEDURES No Known procedures INSTRUCTIONS MEDICATIONS ADMINISTERED No Known Medications
--- OUTSIDE RECORDS SUMMARY | 2019-11-24 12:56 | XMS REPORT ---
Author Author Deon Rosy Doctor Organization [facility] Address Unknown Phone Unavailable Care Team Providers Care Bag Loader Name Role Phone Migration, Doctor Unavailable Unavailable PROBLEMS Type Condition ICD9-CM Code ZKN78-UV Code Onset Dates Condition S tatus SNOMED Code Problem Routine general medical examination at [facility] y V70.0 Active 041416541 Problem Counseling on substance use and abuse V65.42 Active 823743094 Problem Need for prophylactic vaccination and inoculation, Influen za V04.81 Active 648822112 Problem STATE HEP A (ADULT) DX V05.3 Active 491059281 Problem Other malaise and fatigue 780.79 Acti ve 811675636 Problem Generalized pain 780.96 Active 829 76260 Problem Unspecified myalgia and myositis 729.1 Active 194983545 Problem Pain in soft tissues of limb 729.5 A ctive 33404586 Problem Acute pharyngitis 462 Active 36 6788224 Problem Acute sinusitis, unspecified 461.9 A ctive 53439950 Problem Asymptomatic varicose veins 454.9 Ac tive 345797592 Problem Glucocorticoid deficiency 255.41 Acti ve 706292222 Problem Tibialis tendinitis 726.72 Active 42457390 Problem Candidiasis of vulva and vagina 112.1 Active 15699702 Problem Unspecified synovitis and tenosynovitis 727.00 Active 835980904 Problem Unspecified conjunctivitis 372.30 Act negro 4048194 Problem Other chronic pain 338.29 Active 8 6401188 Problem Anxiety state, unspecified 300.00 Act negro 698635662 Problem Unspecified vitamin D deficiency 268.9 Active 19306686 ALLERGIES No Information ENCOUNTERS Encounter Location Date Diagnosis [facility] [address] [facility] [id number] [address] [place] [id number] Jun, Dental examination Z01.20 [facility] [address] [facility] [id number] [address] [address] Jun, [facility] [address] [id number] [address] [place] [address], [place] [address] 14 Sep, 2014 [facility] [address] [id number] [address] [place] [address], [place] [address] 13 Sep, 2014 [facility] [address] [id number] [address] [place] [address], [place] [address] 16 Dec, 2013 [facility] [address] [id number] [address] [place] [address], [place] [address] Dec, [facility] [address] [id number] [address] [place] [address], [place] [address] Jun, [facility] [address] [id number] [address] [place] [address], [place] [address] Jun, [facility] [address] [id number] [address] [place] [address], [place] [address] May, [facility] [address] [id number] [address] [place] [address], [place] [address] May, [facility] [address] [id number] [address] [place] [address], [place] [address] May, [facility] [address] [id number] [address] [place] [address], [place] [address] May, [facility] [address] [id number] [address] [place] [address], [place] [address] Apr, [facility] [address] [id number] [address] [place] [address], [place] [address] Apr, [facility] [address] [id number] [address] [place] [address], [place] [address] Apr, [facility] [address] [id number] [address] [place] [address], [place] [address] Apr, [facility] [address] [id number] [address] [place] [address], [place] [address] Mar, [facility] [address] [id number] [address] [place] [address], [place] [address] Mar, [facility] [address] [id number] [address] [place] [address], [place] [address] 16 Mar, 2013 [facility] [address] [id number] [address] [place] [address], [place] [address] 16 Mar, 2013 [facility] [address] [id number] [address] [place] [address], [place] [address] Mar, [facility] [address] [id number] [address] [place] [address], [place] [address] Mar, [facility] [address] [id number] [address] [place] [address], [place] [address] Mar, [facility] [address] [id number] [address] [place] [address], [place] [address] Feb, [facility] [address] [id number] [address] [place] [address], [place] [address] Jan, [facility] [address] [id number] [address] [place] [address], [place] [address] Jan, [facility] [address] [id number] [address] [place] [address], [place] [address] Jan, [facility] [address] [id number] [address] [place] [address], [place] [address] Jan, [facility] [address] [id number] [address] [place] [address], [place] [address] Dec, [facility] [address] [id number] [address] [place] [address], [place] [address] Dec, [facility] [address] [id number] [address] [place] [address], [place] [address] Dec, [facility] [address] [id number] [address] [place] [address], [place] [address] Dec, [facility] [address] [id number] [address] [place] [address], [place] [address] Dec, [facility] [address] [id number] [address] [place] [address], [place] [address] Nov, [facility] [address] [id number] [address] [place] [address], [place] [address] Nov, [facility] [address] [id number] [address] [place] [address], [place] [address] Nov, [facility] [address] [id number] [address] [place] [address], [place] [address] Nov, [facility] [address] [id number] [address] [place] [address], [place] [address] October, [facility] [address] [id number] [address] [place] [address], [place] [address] October, [facility] [address] [id number] [address] [place] [address], [place] [address] October, [facility] [address] [id number] [address] [place] [address], [place] [address] October, [facility] [address] [id number] [address] [place] [address], [place] [address] October, [facility] [address] [id number] [address] [place] [address], [place] [address] October, [facility] [address] [id number] [address] [place] [address], [place] [address] October, [facility] [address] [id number] [address] [place] [address], [place] [address] October, [facility] [address] [id number] [address] [place] [address], [place] [address] October, [facility] [address] [id number] [address] [place] [address], [place] [address] May, [facility] [address] [id number] [address] [place] [address], [place] [address] May, [facility] [address] [id number] [address] [place] [address], [place] [address] May, [facility] [address] [id number] [address] [place] [address], [place] [address] Apr, [facility] [address] [id number] [address] [place] [address], [place] [address] Apr, [facility] [address] [id number] [address] [place] [address], [place] [address] Mar, [facility] [address] [id number] [address] [place] [address], [place] [address] Mar, [facility] [address] [id number] [address] [place] [address], [place] [address] Mar, [facility] [address] [id number] [address] [place] [address], [place] [address] Mar, [facility] [address] [id number] [address] [place] [address], [place] [address] Mar, [facility] [address] [id number] [address] [place] [address], [place] [address] Mar, [facility] [address] [id number] [address] [place] [address], [place] [address] Feb, [facility] [address] [id number] [address] [place] [address], [place] [address] Jan, [facility] [address] [id number] [address] [place] [address], [place] [address] Dec, [facility] [address] [id number] [address] [place] [address], [place] [address] Dec, [facility] [address] [id number] [address] [place] [address], [place] [address] Dec, [facility] [address] [id number] [address] [place] [address], [place] [address] Sep, [facility] [address] [id number] [address] [place] [address], [place] [address] Aug, [facility] [address] [id number] [address] [place] [address], [place] [address] Aug, [facility] [address] [id number] [address] [place] [address] Jul, [facility] [address] [id number] [address] [place] [address] Jul, [facility] [address] [id number] [address] [place] [address] Jul, [facility] [address] [id number] [address] [place] [address] Jul, [facility] [address] [id number] [address] [place] [address] Feb, [facility] [address] [id number] [address] [place] [address] May, [facility] [address] [id number] [address] [place] [address] October, [facility] [address] [id number] [address] [place] [address] Jul, [facility] [address] [id number] [address] [place] [address] Mar, IMMUNIZATIONS No Known Immunizations SOCIAL HISTORY Never Assessed REASON FOR VISIT PLAN OF CARE VITAL SIGNS Height 64 in 2012-12-03 Weight 185.31 lbs 2012-12-03 Temperature 98.6 degrees Fahrenheit 2012-12-03 Heart Rate 74 bpm 2012-12-03 Respiratory Rate 16 2012-12-03 Blood pressure systolic 118 mmHg 2012-12-03 Blood pressure diastolic 80 mmHg 2012-12-03 MEDICATIONS Unknown Medications RESULTS No Results PROCEDURES No Known procedures INSTRUCTIONS MEDICATIONS ADMINISTERED No Known Medications
--- OUTSIDE RECORDS SUMMARY | 2019-11-24 12:56 | XMS REPORT | Clinical Summary ---
Author Author [facility] Organization [facility] Address Unknown Phone Unavailable Care Team Providers Care Signalling And Communications Engineer Name Role Phone Kiara Longo MD Unavailable Cherry Rodriguez MD Unavailable No Pcp, Na PCP Unavailable Source Comments Some departments are not documenting in the electronic medical record. If you d o not see the information that you expected, contact Release of Information in [facility] [employer] Information Management department at [phone] for further assistan ce in locating additional records.[facility] Allergies Comments Active Allergy Reactions Severity [...] Comments Vital Sign 127/63 08/05/2018 3:09 PM TAX ADVISOR Blood Pressure 100 08/05/2018 3:09 PM TAX ADVISOR Pulse 36.7 C (98 F) 03/17/2013 11:32 AM CDT Temperature 18 03/17/2013 11:32 AM CDT Respiratory Rate 98% 08/05/2018 3:09 PM TAX ADVISOR Oxygen Saturation - - Inhaled Oxygen Concentration 98 kg (216 lb) 08/05/2018 3:09 PM TAX ADVISOR Weight 163.1 cm (5' 4.2") 08/05/2018 3:09 PM TAX ADVISOR Height 36.85 08/05/2018 3:09 PM TAX ADVISOR Body Mass Index Plan of Treatment Health Maintenance Due Date Last Done Comments HIV SCREENING 01/31/1996 DTAP/TDAP VACCINES (1 - 1999 Tdap) HEPATITIS C SCREENING 1999 PHYSICAL (COMPREHENSIVE) 1999 EXAM CERVICAL CANCER SCREENING 2002 INFLUENZA VACCINE 03/17/2020 Results Not on filefrom Last 3 Months Insurance Type Payer Benefit Subscriber ID Effective Phone Address Plan / Dates Group [facility] xxxxxxxxx 2017-P CLAUDE resent 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
--- OUTSIDE RECORDS SUMMARY | 2019-11-24 12:56 | XMS REPORT ---
Author Author [employer] corporate legal secretary [facility] [employer] [facility] Remind Address [address] [address] Care Team Providers Care Pediatric Clinical Dietician Name Role Phone IFRAH TORRES Unavailable [facility] Unavailable Migration, Doctor Unavailable Unavailable [...] Acute Episodic Active Doctor Community respiratory pharyngitis [facility] infections (20 Translations: of [facility] sources.) [ Acute [place] ([address]) pharyngitis, Acute sinusitis, unspecified, Acute sinusitis, unspecified] 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 (20 hypofunction of [facility] sources.) Translations: [place] ([address]) [ Glucocorticoid deficiency] Anxiety Anxiety state Chronic Active Doctor Communit y disorders (20 Translations: [facility] sources.) [ Anxiety of [facility] state, [place] ([address]93) unspecified] Mycoses (20 Candidal Episodic Active Doctor Community sources.) vulvovaginitis [facility] Translations: of [facility] [ Candidiasis [place] (83876) of vulva and vagina] Residual Chronic pain Chronic Active Doctor Community codes; Translations: [facility] unclassified [ Other of [place] (15 sources.) chronic pain] [place] ([address]46) Residual Chronic pain Episodic Active Doctor Community codes; Translations: [facility] unclassified [ Other of [facility] (5 sources.) chronic pain] [place] (48435) Inflammation; Conjunctivitis Episodic Active Doctor Com munity infection of Translations: [facility] eye (except [ Unspecified of [facility] that caused by conjunctivitis [place] ([address]88) tuberculosis ] or sexually transmitteddis ease) (20 sources.) Residual Generalized Episodic Active Doctor Community codes; aches and [facility] unclassified pains of [facility] (20 sources.) Translations: [place] ([address]843) [ Generalized pain] Malaise and Malaise and Episodic Active Doctor Communit y fatigue (20 fatigue [facility] sources.) Translations: of [facility] [ Other [place] ([address]30) malaise and fatigue] Other Myalgia/myosit Episodic Active Doctor Communi connective is - multiple [facility] tissue disease Translations: of [facility] (20 sources.) [ Unspecified [place] (21017) myalgia and myositis] Residual Needs Episodic Active Doctor Community codes; influenza [facility] unclassified immunization of [facility] (20 sources.) Translations: [place] (92147) [ Need for prophylactic vaccination and inoculation, Influenza] Other Pain in limb Episodic Active Doctor Community connective Translations: [facility] tissue disease [ Pain in soft of [facility] (20 sources.) tissues of [place] ([address]859) limb] Other Synovitis and Episodic Active Doctor Communit y connective tenosynovitis [facility] tissue disease Translations: of [facility] (20 sources.) [ Unspecified [place] (78156) synovitis and tenosynovitis] Other Tibialis Episodic Active Doctor Community connective tendinitis [facility] tissue disease Translations: of [facility] (20 sources.) [ Tibialis [place] (35717) tendinitis] Varicose veins Venous varices Episodic Active Doctor Co mmunity of lower Translations: [facility] extremity (20 [ Asymptomatic of [place] sources.) varicose [place] (10838) veins] Nutritional Vitamin D Chronic Active Doctor Community deficiencies deficiency [facility] (20 sources.) Translations: of [facility] [ Unspecified [place] (42753) vitamin D deficiency] Procedures Procedure Normalized Procedure Procedure Result Performer Facility Date General examination of no information no name [facility] patient [facility] (86310) Infective hepatitis no information no name [facility] immunization [facility] (50754) Substance abuse no information no name [facility] (37475) Immunizations Normalized Immunization Date Notes Care Provider Facili ty Immunization hepatitis A vaccine, no information Doctor [facility] unspecified [facility] ([address]378) Translations: [ STATE HEP A (ADULT) DX] [...] Results No Results No Results Vital Signs Vital Sign Value Interpretation Reference Date Time Care Prov ider Facility (Normalized) (Normalized) Range Body height 162.56 cm (no code) cm 01-29-2013 Doctor Co mmunity 11: [facility] (83345) Body height 162.56 cm (no code) cm 12-03-2012 Doctor Co mmunity 10:340400 [facility] (08671) Body 97.9 [degF] (no code) 97.8 - 99.0 01-29-2013 Doctor [facility] temperature [degF] 11:130400 [facility] (15234) Body 98.6 [degF] (no code) 97.8 - 99.0 12-03-2012 Doctor [facility] temperature [degF] 10:34-0400 [facility] (47041) Body weight 84.9 kg (no code) kg 01-29-2013 Doctor Com munity 11: [facility] (96526) Body weight 84.06 kg (no code) kg 12-03-2012 Doctor Com munity 10:340400 [facility] (68997) Interventions No Information Plan of Treatment The [...] Pain/REJI Encounter for dental SINDHU CHAPPELL (no [facility] - examination and phone) DENTAL (no justo ne) 07-11-2018 cleaning without - abnormal findings 07-11-2018 12-30-2013 [facility] no information JON HATCH (no [facility] - phone) Doctor (no phone) 12-30-2013 [facility] (no phone) - 12-30-2013 06-19-2013 [facility] no information Doctor Migrati on (no [facility] - phone) (no phone) 06-19-2013 - 06-19-2013 06-16-2013 [facility] no information Doctor Migrati on (no [facility] - phone) (no phone) 06-16-2013 - 06-16-2013 05-25-2013 [facility] no information Doctor Migrati on (no [facility] - phone) (no phone) 05-25-2013 - 05-25-2013 05-15-2013 [facility] no information Doctor Migrati on (no [facility] - phone) (no phone) 05-15-2013 - 05-15-2013 04-17-2013 [facility] no information Doctor Migrati on (no [facility] - phone) (no phone) 04-17-2013 - 04-17-2013 04-03-2013 [facility] no information Doctor Migrati on (no [facility] - phone) (no phone) 04-03-2013 - 04-03-2013 04-01-2013 [facility] no information Doctor Migrati on (no [facility] - phone) (no phone) 04-01-2013 - 04-01-2013 03-20-2013 [facility] no information JON HATCH (no [facility] - phone) (no phone) 03-20-2013 - 03-20-2013 03-19-2013 [facility] no information Doctor Migrati on (no [facility] - phone) (no phone) 03-19-2013 - 03-19-2013 02-13-2013 [facility] no information Doctor Migrati on (no [facility] - phone) (no phone) 02-13-2013 - 02-13-2013 01-29-2013 [facility] no information Doctor Migrati on (no [facility] - phone) (no phone) 01-29-2013 - 01-29-2013 12-25-2012 [facility] no information Doctor Migrati on (no [facility] - phone) (no phone) 12-25-2012 - 12-25-2012 12-24-2012 [facility] no information Doctor Migrati on (no [facility] - phone) (no phone) 12-24-2012 - 12-24-2012 12-22-2012 [facility] no information Doctor Migrati on (no [facility] - phone) (no phone) 12-22-2012 - 12-22-2012 12-03-2012 [facility] no information Doctor Migrati on (no [facility] - phone) (no phone) 12-03-2012 - 12-03-2012 11-25-2012 [facility] no information Doctor Migrati on (no [facility] - phone) (no phone) 11-25-2012 - 11-25-2012 11-17-2012 [facility] no information Doctor Migrati on (no [facility] - phone) (no phone) 11-17-2012 - 11-17-2012 11-11-2012 [facility] no information Doctor Migrati on (no [facility] - phone) (no phone) 11-11-2012 - 11-11-2012 11-07-2012 [facility] no information Doctor Migrati on (no [facility] - phone) (no phone) 11-07-2012 - 11-07-2012 11-03-2012 [facility] no information Doctor Migrati on (no [facility] - phone) (no phone) 11-03-2012 - 11-03-2012 10-31-2012 [facility] no information Doctor Migrati on (no [facility] - phone) (no phone) 10-31-2012 - 10-31-2012 06-05-2012 [facility] no information PEGGY CLARK ( no [facility] - phone) Doctor (no phone) 06-05-2012 [facility] (no phone) - 06-05-2012 04-18-2012 [facility] no information Doctor Migrati on (no [facility] - phone) (no phone) 04-18-2012 - 04-18-2012 04-09-2012 [facility] no information Doctor Migrati on (no [facility] - phone) (no phone) 04-09-2012 - 04-09-2012 04-08-2012 [facility] no information Doctor Migrati on (no [facility] - phone) (no phone) 04-08-2012 - 04-08-2012 02-22-2012 [facility] no information Doctor Migrati on (no [facility] - phone) (no phone) 02-22-2012 - 02-22-2012 2012 [facility] no information PEGGY CLARK ( no [facility] - phone) (no phone) 2012 - 2012 01-09-2012 [facility] no information PEGGY CLARK ( no [facility] - phone) ANDRY RO (no phone) 01-09-2012 (no phone) - 01-09-2012 01-01-2012 [facility] no information PEGGY CLARK ( no [facility] - phone) (no phone) 01-01-2012 - 01-01-2012 09-24-2011 [facility] no information PEGGY CLARK ( no [facility] - phone) (no phone) 09-24-2011 - 09-24-2011 09-03-2011 [facility] no information Doctor Migrati on (no [facility] - phone) (no phone) 09-03-2011 - 09-03-2011 08-10-2011 [facility] no information Doctor Migrati on (no [facility] - phone) (no phone) 08-10-2011 - 08-10-2011 08-06-2011 [facility] no information Doctor Migrati on (no [facility] - phone) (no phone) 08-06-2011 - 08-06-2011 05-23-2010 [facility] no information Doctor Migrati on (no [facility] - phone) (no phone) 05-23-2010 - 05-23-2010 04-01-2008 [facility] no information Doctor Migrati on (no [facility] - phone) (no phone) 04-01-2008 - 04-01-2008 07-07-2018 Telephone encounter no information PEGGY EDUARDO (no [facility] - phone) CARE (no phone) 07-07-2018 - 07-07-2018 09-28-2014 Telephone encounter no information Doctor Migration (no [facility] - phone) (no phone) 09-28-2014 - 09-28-2014 09-27-2014 Telephone encounter no information Doctor Migration (no [facility] - phone) (no phone) 09-27-2014 - 09-27-2014 03-18-2013 Telephone encounter no information Doctor Migration (no [facility] - phone) (no phone) 03-18-2013 - 03-18-2013 03-06-2013 Telephone encounter no information Doctor Migration (no [facility] - phone) (no phone) 03-06-2013 - 03-06-2013 02-09-2013 Telephone encounter no information Doctor Migration (no [facility] - phone) (no phone) 02-09-2013 - 02-09-2013 12-23-2012 Telephone encounter no information Doctor Migration (no [facility] - phone) (no phone) 12-23-2012 - 12-23-2012 11-26-2012 Telephone encounter no information Doctor Migration (no [facility] - phone) (no phone) 11-26-2012 - 11-26-2012 11-13-2012 Telephone encounter no information Doctor Migration (no [facility] - phone) (no phone) 11-13-2012 - 11-13-2012 11-12-2012 Telephone encounter no information Doctor Migration (no [facility] - phone) (no phone) 11-12-2012 - 11-12-2012 11-04-2012 Telephone encounter no information Doctor Migration (no [facility] - phone) (no phone) 11-04-2012 - 11-04-2012 11-01-2012 Telephone encounter no information Doctor Migration (no [facility] - phone) (no phone) 11-01-2012 - 11-01-2012 06-04-2012 Telephone encounter no information Doctor Migration (no [facility] - phone) (no phone) 06-04-2012 - 06-04-2012 08-09-2011 Telephone encounter no information Doctor Migration (no [facility] - phone) (no phone) 08-09-2011 - 08-09-2011 02-26-2011 Telephone encounter no information Doctor Migration (no [facility] - phone) (no phone) 02-26-2011 - 02-26-2011 10-28-2009 Telephone encounter no information Doctor Migration (no [facility] - phone) (no phone) 10-28-2009 - 10-28-2009 07-27-2008 Telephone encounter no information Doctor Migration (no [facility] - phone) (no phone) 07-27-2008 - 07-27-2008 no information Encounter for dental no name no organi zation name examination and cleaning without abnormal findings Medical Equipment No Information Payers The data below is from unstructured sources Payer Name Policy Number Subscriber Name Relationship [facility] [id number] Rosy Hutchinson 01 Self / Same As Patient Advance Directives Directive Response Recor ded Date/Time Advance Directives No 2:40am Health Care Power of Collections Manager No 12/10/14 2:40am Organ Donor No 12/10/14 2:40am Resuscitation Status Full Code 12/10/14 2:40am Directive Response Recor ded Date Advance Directives N 11:49pm Discharge Instructions No hospital discharge instructions. Additional Source Comments This clinical document has been generated using [employer] software that has been certified by the Office of the National Coordinator for Health Information Technology (ONC 15.99.04.3023.Diam.31.00.0.698813) and the National Committee for Cable Inspector (NCQA, as an eMeasure certified technology). FOR [...] BASED ON T HE PRIMARY CLINICAL RECORDS. [employer] provides no warranty or guara ntee of the accuracy or completeness of information in this document.The followi ng information is based on time limited clinical information UNRECOGNIZED CONTENT PROVIDED BELOW FOR UNRECOGNIZED SECTION REASON FOR VISIT [id number] -[id number]-Jakob
--- NOTE | 2019-11-24 12:57 | Anesthesia-General Post-Op ---
MAC Patient Condition Mental Status/LOC: Same as Preop Cardiovascular: Satisfactory Nausea/Vomiting: Absent Respiratory: Satisfactory Pain: Controlled Complications: Absent Post Op Complications Complications None Follow Up Care/Instructions Patient Instructions None needed. Anesthesiology Discharge Order Discharge Order Patient is doing well, no complaints, stable vital signs, no apparent adverse anesthesia problems. No complications reported per nursing. AISSATOU SAUL CRNA Nov 24, 2019 12:57
--- OUTSIDE RECORDS SUMMARY | 2019-11-24 12:57 | XMS REPORT | Continuity of Care Document ---
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 04/08/2012 RENAY JACOB MD 268.9 VITAMIN D DEFICIENCY 04/08/2012 RENAY JACOB MD 454.9 ASYMPTOMATIC VARICOSE VEINS 04/08/2012 RENAY JACOB MD 727.00 SYNOVITIS AND TENOSYNOVITIS UNSPECIFIED 04/08/2012 RENAY JACOB MD 780.79 OTHER MALAISE AND FATIGUE 04/08/2012 RENAY JACOB MD V70.0 ROUTINE GENERAL MEDICAL EXAMINATION AT [facility] 04/08/2012 RENAY JACOB MD 268.9 VITAMIN D DEFICIENCY 04/08/2012 RENAY JACOB MD 454.9 ASYMPTOMATIC VARICOSE VEINS 04/08/2012 RENAY JACOB MD 727.00 SYNOVITIS AND TENOSYNOVITIS UNSPECIFIED 04/08/2012 RENAY JACOB MD 780.79 OTHER MALAISE AND FATIGUE 04/08/2012 RENAY JACOB MD V70.0 ROUTINE GENERAL MEDICAL EXAMINATION AT [facility] 04/08/2012 SINDHU COLLINS DDS 268.9 VITAMIN D DEFICIENCY 04/08/2012 KARINA SAUCEDOS, SINDHU Lewis 454.9 ASYMPTOMATIC VARICOSE VEINS 04/08/2012 KARINA MCCOY, SINDHU Lewis 727.00 SYNOVITIS AND TENOSYNOVITIS UNSPECIFIED 04/08/2012 KARINA MCCOY, SINDHU Lewis 780.79 OTHER MALAISE AND FATIGUE 04/08/2012 KARINA MCCOY, SINDHU Lewis V70.0 ROUTINE GENERAL MEDICAL EXAMINATION AT [facility] 10/31/2012 780.96 GEN ERALIZED PAIN 10/31/2012 780.96 GEN ERALIZED PAIN 10/31/2012 780.96 GEN ERALIZED PAIN 10/31/2012 RENAY JAOCB MD 780.96 GENERALIZED PAIN 10/31/2012 RENAY JACOB [...] Code Description [place] [address] ROUT INE VENIPUNCTURE 10/31/2012 08745 CMP 10/31/2012 47084 YUDY MIN D 25-HYDROXY (D2,D3, TOTAL) 10/31/2012 02452 CPK 10/31/2012 82128 TSH 10/31/2012 59175 CBC 10/31/2012 24815 ESR/ SED RATE 10/31/2012 99701 CRP 10/31/2012 94528 RA FACTOR 10/31/2012 ANAANA NATTY ANALYZER (SCREEN) 10/31/2012 09864 ROUT INE VENIPUNCTURE 11/11/2012 40634 HEPA TITIS PROFILE 11/12/2012 29139 CORTISOL 11/12/2012 20227 CCP ANTIBODY 11/12/2012 97602 DNA ANTIBODY (DOUBLE STRAND) 11/12/2012 47417 SM A NTIBODY (ANTI MARIE) 11/12/2012 60287 LDH 11/13/2012 69815 ALDOLASE 11/13/2012 10879 ROUT INE VENIPUNCTURE 11/25/2012 49268 CORTISOL 11/25/2012 22130 ACTH 11/26/2012 Results There is no data. Encounters ACCT No. Visit Date/Time Discharge Status Pt. Type Provider Facility Loc./Unit Complaint [id number] 05/12/2013 07:57:00 05/12/2013 23:59: 59 CLS Outpatient SINDHU COLLINS DDS [id number] 04/03/2013 10:10:00 04/03/2013 23:59: 59 CLS Outpatient RENAY JACOB MD [id number] 01/29/2013 10:13:00 01/29/2013 23:59: 59 CLS Outpatient RENAY JACOB MD [id number] 04/08/2012 10:19:00 04/08/2012 23:59:5 9 CLS Outpatient [id number] 04/08/2012 10:19:00 04/08/2012 23:59: 59 CLS Outpatient JORGE LUIS ORTIZ DO [id number] 12/03/2012 09:34:00 Document Registration [id number] 11/11/2012 09:50:00 Document Registration [id number] 10/31/2012 11:01:00 Document Registration
[2019-11-24 13:07] VITALS: BP 120/74
--- NOTE | 2019-11-24 21:47 | OPERATIVE REPORT ---
DATE OF SERVICE: PREOPERATIVE DIAGNOSES: Severe epigastric pain, trouble swallowing and change in bowel habits. POSTOPERATIVE DIAGNOSES: 1. Gastritis, hiatal hernia. 2. Cecal ulcer. 3. Colon polyps. 4. Internal hemorrhoids. PROCEDURES: 1. EGD with biopsy. 2. Colonoscopy with snare polypectomy. 3. Colonoscopy with hot biopsy. SURGEON: Compa Mullins DO MINE INSPECTOR FEDERAL: None. ANESTHESIA: IV sedation by SPEECH LANGUAGE ASSISTANT. SPECIMEN: Biopsy from the antrum, body of stomach and GE junction as well as 3 biopsies from the cecum, a descending colon polyp taken in 2 pieces, one sigmoid polyp, one rectal polyp and then one biopsy from the sigmoid area of inflammation. BLOOD LOSS: Scant. FLUIDS: Per anesthesia. POSTOPERATIVE CONDITION: Stable. INDICATION FOR PROCEDURE: The patient is a 39-year-old female who has been having some severe epigastric abdominal pain along with change in bowel habits and trouble swallowing, needed an EGD and colonoscopy for workup. FINDINGS: The patient had some mild gastritis and a small hiatal hernia. She also noted to have a polyp in the descending colon and sigmoid colon and one larger in the rectum and she had an ulceration in the cecum, right near the terminal ileum. Pictures taken. Biopsy done. PROCEDURE NOTE: After informed consent was obtained, the patient was brought to the endoscopy suite, placed in bed in left lateral decubitus position. She was administered IV sedation by the SPEECH LANGUAGE ASSISTANT who then monitored her vitals the entire time, heart rate, blood pressure and pulse ox and the scope was inserted, started with the EGD, placing scope down the mouth through the esophagus and into the stomach. In the stomach, saw some very mild inflammation and gastritis, pushed through into the duodenum, took a picture, it looked fine. Pulled back and did a biopsy of the antrum. Retroflexed the scope, saw a small hiatal hernia and then did a biopsy of the body of stomach, pulled the scope into the GE junction, took a picture and then did a biopsy of the GE junction, pushed the scope back into the stomach, suctioned all the air out and then pulled the scope up the esophagus out of the mouth. Switched cameras, switched gloves, went down below, started the colonoscopy. Pushed all the way into about 140 cm, able to get to the cecum and actually into the terminal ileum, took a picture of the terminal ileum, looked fine. No ulcerations, but just outside the terminal ileum in the cecum saw ulceration, like to do a hot biopsy of this, did 3 biopsies of the ulceration in this area, took a picture of appendiceal, noted the appendiceal orifice and then slowly withdrew the scope insufflating to look circumferentially at the grier looking the cecum, up the ascending colon to the hepatic flexure, then down the transverse colon to the splenic flexure, then into the descending colon. In the descending colon, saw a polyp, able to take this in 2 hot biopsy pieces and removed it completely, then continued down, saw another sigmoid polyp, did another hot biopsy of this and then down into the rectum, where we saw right near the sigmoid polyps, saw some inflammation, did a biopsy of this and then into the rectum. In the rectum, saw a large polyp and then elected to do a snare polypectomy to remove all of this, able to get all of it at one time and remove it and then pulled into the rectum, retroflexed in the rectal vault, saw some minimal internal hemorrhoids, took a picture of this and then removed the scope. The patient tolerated the procedure, recovered in endoscopy suite. Job ID: [id number] DocumentID: [id number] Dictated Date: 11/24/2019 14:06:14 Appian Bpm Developer Date: 11/24/2019 21:47:07 Dictated By: COMPA MULLINS DO
== END 2019-11-24 13:50 | disposition home or self-care (01) ==
LOC: ENDO 11:07
PROVIDERS: ATTEND Surgery
DX: K29.50 Unspecified chronic gastritis without bleeding (principal); K44.9 Diaphragmatic hernia without obstruction or gangrene; K63.3 Ulcer of intestine; K63.5 Polyp of colon; K62.1 Rectal polyp; K64.8 Other hemorrhoids; K63.89 Other specified diseases of intestine; G47.33 Obstructive sleep apnea (adult) (pediatric); F17.210 Nicotine dependence, cigarettes, uncomplicated; M54.9 Dorsalgia, unspecified; Z86.010 Personal history of colon polyps; Z79.899 Other long term (current) drug therapy

== ENCOUNTER → 2020-04-08 | Outpatient (CLI) | payer OTHER ==
[~2020-04-08] MED LIST changes: +ACHD5005 PO; +CATHETER FLUSH 10 ML SYR IV PRN; -HYDR-83 PO
--- NOTE | 2020-04-08 13:42 | Diagnostic Imaging Report ---
INDICATION: Abdominal pain and nausea. DETAILS OF PROCEDURE: Patient was administered 5.4 mCi technetium-99m Choletec intravenously and imaging over the abdomen was performed. After 60 minutes, patient ingested one can of Ensure and a gallbladder ejection fraction was calculated. There is homogeneous uptake of activity by the liver with prompt excretion of activity into the gallbladder and common duct. There is normal passage of activity into the small bowel. Gallbladder ejection fraction is normal at 70%. IMPRESSION: Normal HIDA scan and gallbladder ejection fraction. Dictated by: Dictated on workstation # [id number]
== END ==
LOC: CARD 09:57
PROVIDERS: ATTEND Nurse Practitioner Family
DX: R10.9 Unspecified abdominal pain (principal); R11.2 Nausea with vomiting, unspecified; R19.7 Diarrhea, unspecified
CPT/HCPCS: 78227; A9537